=== PATIENT | female | born 1995 | race Caucasian/White ===

== ENCOUNTER 2017-05-18 15:57 | Emergency (ER) | payer OTHER, SELFPAY ==
[2017-05-18 16:44] VITALS: BP 147/93; PULSE 94; RESP 20; TEMP 36.9; O2SAT 99; BMI 34.0
--- NOTE | 2017-05-18 16:49 | HMH.EDUTC ---
[facility] [place] Disposition Clinical Impression: Viral gastroenteritis Disposition: Home, Self-Care Condition on Discharge: Good Instructions: DI for Viral Gastroenteritis -- Adult Additional Instructions: ? Drink extra fluids with and between meals. If you have difficulty drinking, try very small amounts of water or suck on ice chips. ? Avoid fruit juices, as these do not replace minerals and can actually increase diarrhea. ? Children and adults can use sports drinks to replenish electrolytes. Younger children and infants should use products formulated for children, like oral rehydration solutions. ? Eat food in small amounts and let your stomach recover. ? Get lots of rest. You may feel tired or weak. ? Check with your doctor before taking medications or giving them to children. Never give aspirin to children or teenagers with a viral illness. This can cause Jaylen syndrome, a potentially life-threatening condition. Prescriptions: Ondansetron [Zofran 4mg ODT] 4 mg PO Q8H PRN #20 tab.rapdis PRN Reason: Nausea Referrals: Konstantin Pryor MD [Primary Care Provider] - Time of Disposition: 17:15 Medical Decision Making - Medical Records Medical records reviewed: Yes: I reviewed the patient's medical records. Vital Signs: 05/18/17 16:44 Temperature 98.4 F Temperature Source Temporal Artery Scan Pulse Rate [Right] 94 H Respiratory Rate 20 Blood Pressure [Right Arm] 147/93 Blood Pressure Mean [Right Arm] 111 Blood Pressure Source [Right Arm] Automatic Cuff Blood Pressure Position [Right Arm] Sitting 02 Sat by Pulse Oximetry 99 Oxygen Delivery Method Room Air - Cesar Inquiry Pt receiving controlled substance: No Cesar was queried for this patient: No [facility] [place] HPI - General Stated complaint: vomiting Mode of Arrival: Ambulatory Source of Information: Patient Limitations: No Limitations Description of Symptoms (Recalled from Triage Doc. by RN): NAUSEA, VOMITING BEGAN WEDNESDAY HEENT Symptoms (Recalled from RN notes): No Resp Symptoms (Recalled from RN notes): No Skin Symptoms (Recalled from RN notes): No MS Symptoms (Recalled from RN notes): No Functional Status (Recalled from RN notes): N - History of Present Illness Provider Complaint: Patient state that she has been having nausea vomiting and diarrhea on and off since Wednesday State that she thinks she may have the stomach virus and may have been exposed to the flu - Related Data Previous Rx's Medication Instructions Recorded Ondansetron [Zofran 4mg ODT] 4 mg PO Q8H PRN #20 tab.rapdis 05/18/17 Allergies Allergy/AdvReac Type Severity Reaction Status Date / Time No Known Allergies Allergy Verified 05/18/17 16:47 - Worker's Comp Is this a Worker's Comp case?: No [facility] History I have reviewed the patient's past medical history: Yes - *Social History Smoking Status: Current every day smoker Tobacco Type: cigarettes Alcohol Intake: never - Psychiatric History Expresses thoughts of harming self/others: None Suicide Plan Description: No Plan ROS Obtained: Yes All systems reviewed & no additional complaints - Gastrointestinal Gastrointestingal: Reports: diarrhea, nausea, vomiting Physical Exam - General General appearance: alert, in no apparent distress - Respiratory Respiratory exam: Present: normal lung sounds bilaterally. Absent: respiratory distress - Cardiovascular Cardiovascular exam: Present: regular rate, normal rhythm. Absent: JVD - Abdominal Exam Abdominal exam: Present: soft, normal bowel sounds. Absent: distention, tenderness, guarding - Neurological Exam Neurological exam: Present: alert, oriented X3 - Other Other exam information: State that she has been having nausea vomiting and diarrhea on and off since Wednesday State that she had to leave work earlier and thinks she may have been exposed to the flu
--- NOTE | 2017-05-18 16:54 | ED_ITS ---
[facility] [place] Clinical Impression: Viral gastroenteritis Disposition: Home, Self-Care Condition on Discharge: Good Instructions: DI for Viral Gastroenteritis -- Adult Additional Instructions: ? Drink extra fluids with and between meals. If you have difficulty drinking, try very small amounts of water or suck on ice chips. ? Avoid fruit juices, as these do not replace minerals and can actually increase diarrhea. ? Children and adults can use sports drinks to replenish electrolytes. Younger children and infants should use products formulated for children, like oral rehydration solutions. ? Eat food in small amounts and let your stomach recover. ? Get lots of rest. You may feel tired or weak. ? Check with your doctor before taking medications or giving them to children. Never give aspirin to children or teenagers with a viral illness. This can cause Dilma?s syndrome, a potentially life-threatening condition. Prescriptions: Ondansetron [Zofran 4mg ODT] 4 mg PO Q8H PRN #20 tab.rapdis PRN Reason: Nausea Referrals: Konstantin Pryor MD [Primary Care Provider] - Time of Disposition: 17:15 Medical Decision Making - Medical Records Medical records reviewed: Yes: I reviewed the patient's medical records. Vital Signs: 05/18/17 16:44 Temperature 98.4 F Temperature Source Temporal Artery Scan Pulse Rate [Right] 94 H Respiratory Rate 20 Blood Pressure [Right Arm] 147/93 Blood Pressure Mean [Right Arm] 111 Blood Pressure Source [Right Arm] Automatic Cuff Blood Pressure Position [Right Arm] Sitting 02 Sat by Pulse Oximetry 99 Oxygen Delivery Method Room Air - Cesar Inquiry Pt receiving controlled substance: No Cesar was queried for this patient: No [facility] [place] HPI - General Stated complaint: vomiting Mode of Arrival: Ambulatory Source of Information: Patient Limitations: No Limitations Description of Symptoms (Recalled from Triage Doc. by RN): NAUSEA, VOMITING BEGAN WEDNESDAY HEENT Symptoms (Recalled from RN notes): No Resp Symptoms (Recalled from RN notes): No Skin Symptoms (Recalled from RN notes): No MS Symptoms (Recalled from RN notes): No Functional Status (Recalled from RN notes): N - History of Present Illness Provider Complaint: Patient state that she has been having nausea vomiting and diarrhea on and off since Wednesday State that she thinks she may have the stomach virus and may have been exposed to the flu - Related Data Previous Rx's Medication Instructions Recorded Ondansetron [Zofran 4mg ODT] 4 mg PO Q8H PRN #20 tab.rapdis 05/18/17 Allergies Allergy/AdvReac Type Severity Reaction Status Date / Time No Known Allergies Allergy Verified 05/18/17 16:47 - Worker's Comp Is this a Worker's Comp case?: No [facility] History I have reviewed the patient's past medical history: Yes - *Social History Smoking Status: Current every day smoker Tobacco Type: cigarettes Alcohol Intake: never - Psychiatric History Expresses thoughts of harming self/others: None Suicide Plan Description: No Plan ROS Obtained: Yes All systems reviewed & no additional complaints - Gastrointestinal Gastrointestingal: Reports: diarrhea, nausea, vomiting Physical Exam - General General appearance: alert, in no apparent distress - Respiratory Respiratory exam: Present: normal lung sounds bilaterally. Absent: respira
[2017-05-18 17:22] LABS: UTC Influenza A Antigen Negative (Negative); UTC Influenza B Antigen Negative (Negative)
[2017-05-18 17:29] VITALS: BP 0/0; PULSE 84; RESP 18; TEMP 37.2
== END 2017-05-18 17:30 | disposition home or self-care (01) ==
PROVIDERS: Emergency Provider Nurse Practitioner; PCP Emergency Medicine
DX: A08.4 Viral intestinal infection, unspecified
CPT/HCPCS: 87804; 99201

== ENCOUNTER → 2017-08-26 12:45 | Outpatient (CLI) | payer OTHER, SELFPAY ==
--- NOTE | 2017-08-26 | US_ITS ---
MM Dig mamm BI DX w/CAD, US breast LT complete INDICATION: Palpable abnormality left breast retroareolar region, family history of breast cancer with mother reportedly had breast cancer at age 24 ORDERING PHYSICIAN: [facility] PATIENT AGE: 21 years COMPARISON: None TECHNIQUE: Standard images performed along spot compression view of the left breast FINDINGS: There is average fibroglandular tissue. No malignant appearing microcalcifications are evident. 7 mm nodular opacity is noted in the retroareolar region on the left corresponding to the palpable abnormality. This was somewhat obscured by overlying breast tissue on the spot compression views. Therefore, ultrasound was performed. Left breast ultrasound:. There is a 7 x 5 mm cyst corresponding to the mammographic abnormality. No other significant anomalies are evident. IMPRESSION: Palpable abnormality left breast corresponds to a 7 x 5 mm cyst BI-RADS Category: 2 Benign Finding(s) Recommended follow-up as clinically warranted. (A letter has been sent to the patient regarding results of the study.)
== END ==
PROVIDERS: PCP Emergency Medicine; Visit Provider Nurse Practitioner Obstetrics & Gynecology
DX: N60.02 Solitary cyst of left breast (principal); Z80.3 Family history of malignant neoplasm of breast
CPT/HCPCS: 76641; 77066

== ENCOUNTER → 2017-10-21 15:29 | Outpatient (CLI) | payer OTHER, SELFPAY ==
--- NOTE | 2017-10-21 15:32 | XR_ITS ---
EXAM: XR lumbar spine min 4V HISTORY: ITS.REASON: Low back pain ORDERING PHYSICIAN: GUILLERMINA Mendiola PATIENT AGE: 22 years COMPARISON: None FINDINGS: Normal alignment. No fracture or dislocation. No lytic or blastic change. No significant degenerative change. The disc spaces are preserved. There is mild sclerosis of the inferior aspect of the left SI joint. There is partial lumberization of S1 on the right. Mild sclerosis of the SI joint also noted on the right. IMPRESSION: 1. No acute finding. 2. Mild sclerosis of the SI joints suggesting underlying osteoarthritic change
--- NOTE | 2017-10-21 15:32 | XR_ITS ---
XR scoliosis survey CLINICAL INDICATION: ITS.REASON: Back pain ORDERING PHYSICIAN: GUILLERMNIA Mendiola PATIENT AGE: 22 years Comparison: None FINDINGS: There is minimal levoscoliosis of the lower thoracic spine of 3 degrees and minimal dextroscoliosis of the lumbar spine of 4 degrees. No congenital anomalies apparent IMPRESSION: Minimal thoracolumbar scoliosis
== END ==
PROVIDERS: PCP Physician Assistant; Visit Provider Physician Assistant
DX: M54.9 Dorsalgia, unspecified (principal); M54.5 Low back pain
CPT/HCPCS: 72081; 72110

== ENCOUNTER 2017-12-09 14:30 | Outpatient (RCR) | payer OTHER, SELFPAY ==
--- NOTE | 2017-11-03 14:50 | HMH.PTOPEV ---
PT Outpatient Evaluation Rehab PT Outpatient Evaluation Start: 11/03/17 14:40 Freq: Status: Active Protocol: Document 11/03/17 14:40 AMANDO (Rec: 11/03/17 14:49 AMANDO [id number]) Electronically Signed By Ozzie Sinha, PT 11/03/17 14:40 Outpatient Therapy Subjective History Subjective History Pt reports h/o chronic mid- and LBP since 2012 after falling down 2 flights of stairs. Pt reports another fall on ice in 2017 exacerbated s/s. Pt presents today with bilateral paraspinal pain from thoracic spine into lumbar spine. Pt reports no radicular s/s. Chief Complaint Pain Spasms Symptom Type Ache Throb Sharp Dull Symptoms Relieved By Nothing Symptoms Aggravated By Standing Physical Activity Walking Lifting Prior Functional Limitations Lifting Housework Standing Walking Current Functional Limitations Reaching Lifting Housework Standing Walking Bending/Stooping Symptom Description Constant but Variable Level of pain today (0-10) 5 Pain scale - at its best (0-10) 4 Pain scale - at its worst (0-10) 10 Lumbopelvic Eval Posture Thoracic Spine Posture Standing Position Increased Kyphosis Lumbar Spine Posture Standing Position Neutral Assistive device Assistive Devices None / NA Gait Observation General Gait Pattern Observation Antalgic Gait Palapation tenderness bilateral thoracic spinal tenderness Yes: 3/4 lumbar spinal tenderness Yes: 3/4 paraspinal tenderness Yes: 3/4 Lumbar/Sacral Palpation Findings Tenderness Muscle Guarding Lumbar/Sacral Palpation Overall Comment 3/4 Accessory Movement T-spine Vertebrae Accessory Movements [employer] [place] that Elicit Symptoms T10 bilateral T11 bilateral T12 bilateral L-spine Vertebrae Accessory Movements [employer] [place] that Elicit Symptoms L2 bilateral L3 christine
== END 2017-12-09 14:31 | disposition home or self-care (01) ==
LOC: PT 14:30
PROVIDERS: PCP Physician Assistant; Visit Provider Physician Assistant
DX: M54.9 Dorsalgia, unspecified (principal)
CPT/HCPCS: 97010; 97014; 97035; 97110; 97140; 97163; 97164; G0283

== ENCOUNTER → 2017-12-17 15:18 | Outpatient (CLI) | payer OTHER, SELFPAY ==
--- NOTE | 2017-12-17 15:19 | MR_ITS ---
MR lumbar spine wo con, MR 3-d myelogram/MRCP HISTORY: Severe low back pain. ITS.REASON: Lumbar pain ORDERING PHYSICIAN: GUILLERMINA Mendiola PATIENT AGE: 22 years Comparison: X-RAY 10-21-17 TECHNIQUE: Standard multiplanar multiecho sequences are performed without contrast. 3-D MIP and myelographic images are also rendered and reviewed FINDINGS: Review of previous radiographs show that there are only 11 sets of ribs. There is partial lumbarization with that being a transitional segment. Of S1. The spinal cord and at the L1 level. There is normal alignment. No fracture or dislocation. L1-L3 has an unremarkable appearance. L3-L4: Minimal bulging disc and mild facet hypertrophy L4-L5: Minimal bulging disc with mild facet and ligamentum flavum hypertrophy with mild bilateral foraminal narrowing. L5-S1: Minimal bulging disc slightly eccentric to the right with mild facet and ligamentum flavum hypertrophy with mild bilateral foraminal narrowing S1-S2: Unremarkable. No canal stenosis or disc herniation evident. IMPRESSION: 1. Mild facet and ligamentum hypertrophy with minimal bulging disc at L4-5 and L5-S1 with mild bilateral foraminal narrowing. 2. No disc herniation or other significant anomalies. 3. Transitional segment at L5-S1 which is labeled as a partially lumbar S1 segment. Please note this if there is any surgical or percutaneous intervention planned
== END ==
PROVIDERS: PCP Physician Assistant; Visit Provider Physician Assistant
DX: M54.5 Low back pain (principal)
CPT/HCPCS: 72148; 76376

== ENCOUNTER → 2018-01-04 10:24 | Outpatient (POV) | payer OTHER, SELFPAY ==
[2018-01-04 10:42] VITALS: BP 149/90; PULSE 71; RESP 18; O2SAT 98
--- NOTE | 2018-01-04 11:57 | HMH.PMCON ---
Assessment and Plan (1) Degenerative disc disease Current visit: Yes Status: Chronic Qualifiers: Spinal region: lumbar Qualified Code(s): M51.36 - Other intervertebral disc degeneration, lumbar region Category: Medical (2) Radiculopathy Current visit: Yes Status: Chronic Qualifiers: Spinal region: lumbar Qualified Code(s): M54.16 - Radiculopathy, lumbar region Category: Medical Code(s): M54.10 - Radiculopathy, site unspecified (3) Back Pain Current visit: No Status: Chronic Qualifiers: Back pain location: low back pain Chronicity: chronic Back pain laterality: midline Sciatica presence: with sciatica Sciatica laterality: bilateral sciatica Qualified Code(s): M54.41 - Lumbago with sciatica, right side; M54.42 - Lumbago with sciatica, left side; G89.29 - Other chronic pain Category: Medical Code(s): M54.9 - Dorsalgia, unspecified - Assessment and plan all Dx Assessment and Plan for all problems:: We will schedule an L4-L5 lumbar epidural steroid injection for the patient. Patient is not on any anticoagulation therapy. Patient's tried and failed physical therapy along with anti-inflammatories. I will follow-up with the patient after her injection and see if this is beneficial for her. This note was dictated using voice recognition software and may contain errors or omissions HPI - Data of Consult Consult date: 01/04/18 Requesting Physician: Any Cortes APRN Primary Care Provider: GUILLERMINA Patton - Consult Narrative Reason for consult: Back pain History of present illness: Ms. Yip is a 22 year old female who presents today for consultation in regards to her low back pain. Patient rates her pain today a 5 out of 10. She states is in her back and sometimes goes into her legs. Patient states bending and lifting makes it worse while resting decreases pain. Patient has completed physical therapy recently with no relief. Patient states she utilizes a TENS unit however she only had relief while it was on. Patient has fallen down the stairs along with falling on ice several months ago. Patient has recently had a child. Patient does have an MRI showing bulging disks along with mild facet and ligamentum flavum hypertrophy. Patient has tried multiple anti-inflammatories for several months with no success. CC: Any Cortes APRN [facility] History I have reviewed the patient's past medical history: Yes Medical History: Denies:: Cancer, Diabetes Mellitus Type 1, Diabetes Mellitus Type 2, MRSA Other Surgeries: Yes: No Previous Surgery Amputation: No Fractures: No - *Social History Smoking Status: Current every day smoker Tobacco Type: cigarettes # Packs/Day (cigarettes): 1 #Yrs smoked (if former smoker): 5 Alcohol Intake: never Substance Use Type: denies use Occupational Status: other Housing: house - Psychiatric History Expresses thoughts of harming self/others: None Suicide Plan Description: No Plan *Family Hx:: No significant family history Review of Systems - Review of Systems ROS General: no recent weight change, no fever, no sleep disturbances Respiratory: no cough, no shortness of air, no recurring pulmonary infections Cardiovascular/Peripheral Vascular: No chest pain, No palpitations, no edema, no shortness of breath. Gastrointestinal: no incontinence, normal bowel movements reported Genitourinary: no incontinence Musculoskeletal: Back pain, leg pain at times Psychiatric: normal mood/ affect Neurological: [denies weakness in extremities], [denies balance issues] Meds Allergies Allergy/AdvReac Type Severity Reaction Status Date / Time No Known Allergies Allergy Verified 12/22/17 13:54 Objective Vital signs: Pulse Resp BP Pulse Ox 71 18 149/90 98 01/04/18 10:42 01/04/18 10:42 01/04/18 10:42 01/04/18 10:42 Narrative: Physical Exam General: Alert and oriented x3, no ac
--- NOTE | 2018-01-04 12:00 | P.CONS_ITS ---
Assessment and Plan (1) Degenerative disc disease Current visit: Yes Status: Chronic Qualifiers: Spinal region: lumbar Qualified Code(s): M51.36 - Other intervertebral disc degeneration, lumbar region Category: Medical (2) Radiculopathy Current visit: Yes Status: Chronic Qualifiers: Spinal region: lumbar Qualified Code(s): M54.16 - Radiculopathy, lumbar region Category: Medical Code(s): M54.10 - Radiculopathy, site unspecified (3) Back Pain Current visit: No Status: Chronic Qualifiers: Back pain location: low back pain Chronicity: chronic Back pain laterality: midline Sciatica presence: with sciatica Sciatica laterality: bilateral sciatica Qualified Code(s): M54.41 - Lumbago with sciatica, right side; M54.42 - Lumbago with sciatica, left side; G89.29 - Other chronic pain Category: Medical Code(s): M54.9 - Dorsalgia, unspecified - Assessment and plan all Dx Assessment and Plan for all problems:: We will schedule an L4-L5 lumbar epidural steroid injection for the patient. Patient is not on any anticoagulation therapy. Patient's tried and failed physical therapy along with anti-inflammatories. I will follow-up with the patient after her injection and see if this is beneficial for her. This note was dictated using voice recognition software and may contain errors or omissions HPI - Data of Consult Consult date: 01/04/18 Requesting Physician: Any Cortes APRN Primary Care Provider: GUILLERMINA Patton - Consult Narrative Reason for consult: Back pain History of present illness: Ms. Yip is a 22 year old female who presents today for consultation in regards to her low back pain. Patient rates her pain today a 5 out of 10. She states is in her back and sometimes goes into her legs. Patient states bending and lifting makes it worse while resting decreases pain. Patient has completed physical therapy recently with no relief. Patient states she utilizes a TENS unit however she only had relief while it was on. Patient has fallen down the stairs along with falling on ice several months ago. Patient has recently had a child. Patient does have an MRI showing bulging disks along with mild facet and ligamentum flavum hypertrophy. Patient has tried multiple anti-inflammatories for several months with no success. CC: Any Cortes APRN [facility] History I have reviewed the patient's past medical history: Yes Medical History: Denies:: Cancer, Diabetes Mellitus Type 1, Diabetes Mellitus Type 2, MRSA Other Surgeries: Yes: No Previous Surgery Amputation: No Fractures: No - *Social History Smoking Status: Current every day smoker Tobacco Type: cigarettes # Packs/Day (cigarettes): 1 #Yrs smoked (if former smoker): 5 Alcohol Intake: never Substance Use Type: denies use Occupational Status: other Housing: house - Psychiatric History Expresses thoughts of harming self/others: None Suicide Plan Description: No Plan *Family Hx:: No significant family history Review of Systems - Review of Systems ROS General: no recent weight change, no fever, no sleep disturbances Respiratory: no cough, no shortness of air, no recurring pulmonary infections Cardiovascular/Peripheral Vascular: No chest pain, No palpitations, no edema, no shortness of breath. Gastrointestinal: no incontinence, normal bowel movements reported Genitourinary: no incontinence Musculoskeletal: Back pain, leg pain at times Psychiatric: normal mood/ affect Neurological: [
== END ==
PROVIDERS: PCP Physician Assistant; Visit Provider Clinical Nurse Specialist Family Health
DX: M51.16 Intervertebral disc disorders with radiculopathy, lumbar region (principal); M54.41 Lumbago with sciatica, right side; M54.42 Lumbago with sciatica, left side; G89.29 Other chronic pain
CPT/HCPCS: 99202

== ENCOUNTER → 2018-02-15 11:03 | Outpatient (POV) | payer OTHER, SELFPAY ==
[2018-02-15 11:27] VITALS: BP 148/98; PULSE 105; RESP 18; O2SAT 98; BMI 31.8
--- NOTE | 2018-02-15 11:39 | P.CONS_ITS ---
[facility] Pain Management SOAP Note Subjective:: Patient is a pleasant 22-year-old white female who presents today for follow-up after lumbar epidural steroid injection. Patient states the injection made her pain worse. Patient did not get any relief even after she had been numbed. Patient states her pain 6 out of 10. Patient is trying to work full-time. Patient has tried and failed physical therapy. Patient is not currently on any medications. ROS General: no recent weight change, no fever, no sleep disturbances Respiratory: no cough, no shortness of air, no recurring pulmonary infections Cardiovascular/Peripheral Vascular: No chest pain, No palpitations, no edema, no shortness of breath. Gastrointestinal: no incontinence, normal bowel movements reported Genitourinary: no incontinence Musculoskeletal: Back pain, leg pain Psychiatric: normal mood/ affect Neurological: [denies weakness in extremities], [denies balance issues] Objective:: Physical Exam General: Alert and oriented x3, no acute distress, pleasant and cooperative, [on room air] Lungs: Resps E/U, Symmetrical chest expansion, Eyes: PERRL Musculoskeletal: Flexion and extension of lumbar spine somewhat guarded secondary to pain, deep tendon reflexes normal, strength in upper and lower extremities [5/5], slightly antalgic gait noted Neurological: speech clear, orchardist equal, no gross sensory deficits Assessment:: Degenerative disc disease lumbar spine with lumbar radiculopathy Plan:: We will start the patient on gabapentin 100 mg at bedtime and follow-up with her in 1 month we will see if this is beneficial for her. Patient's been instructed to call the office if she has any issues prior to her next appointment. This note was dictated using voice recognition software and may contain errors or omissions
== END ==
PROVIDERS: PCP Physician Assistant; Visit Provider Clinical Nurse Specialist Family Health
DX: M51.16 Intervertebral disc disorders with radiculopathy, lumbar region (principal)
CPT/HCPCS: 99213

== ENCOUNTER → 2018-03-14 08:59 | Outpatient (POV) | payer OTHER, SELFPAY ==
[2018-03-14 09:39] VITALS: BP 158/79; PULSE 104; RESP 18; O2SAT 99; BMI 32.5
--- NOTE | 2018-03-14 10:34 | P.CONS_ITS ---
[facility] Pain Management SOAP Note Subjective:: Patient is a pleasant 22-year-old white female who presents today for follow-up. Patient is being treated for back pain. Patient denied any relief from her lumbar epidural steroid injection. At her last visit we started her on gabapentin. She rates her pain today as 6 out of 10. Patient states she has not had any side effects or medication however she does not feel like it has helped. ROS General: no recent weight change, no fever, no sleep disturbances Respiratory: no cough, no shortness of air, no recurring pulmonary infections Cardiovascular/Peripheral Vascular: No chest pain, No palpitations, no edema, no shortness of breath. Gastrointestinal: no incontinence, normal bowel movements reported Genitourinary: no incontinence Musculoskeletal: Back pain, leg pain Psychiatric: normal mood/ affect Neurological: [denies weakness in extremities], [denies balance issues] Objective:: Physical Exam General: Alert and oriented x3, no acute distress, pleasant and cooperative, [on room air] Lungs: Resps E/U, Symmetrical chest expansion, Eyes: PERRL Musculoskeletal: Flexion and extension of lumbar spine somewhat guarded secondary to pain, deep tendon reflexes normal, strength in upper and lower extremities [5/5], normal gait noted Neurological: speech clear, continuing education dean equal, no gross sensory deficits Assessment:: Degenerative disc disease lumbar spine with lumbar radiculopathy Plan:: We will increase her gabapentin to 300 mg 1 p.o. 3 times daily I will follow-up with her in 1 month. Patient's been instructed to call the office if she has any issues prior to her next appointment. Dr. Mullins is reviewed this chart and agrees with this plan of care. This note was dictated using voice recognition software and may contain errors or omissions
== END ==
PROVIDERS: PCP Nurse Practitioner Family; Visit Provider Clinical Nurse Specialist Family Health
DX: M51.16 Intervertebral disc disorders with radiculopathy, lumbar region (principal)
CPT/HCPCS: 99213

== ENCOUNTER → 2018-04-11 13:29 | Outpatient (POV) | payer BC, OTHER, SELFPAY ==
[2018-04-11 13:39] VITALS: BP 154/93; PULSE 104; RESP 18; O2SAT 99; BMI 31.9
--- NOTE | 2018-04-11 14:01 | HMH.PAINSOAP ---
[facility] Pain Management SOAP Note Subjective:: Patient is a pleasant 22-year-old white female who presents today for follow-up. Patient states that the gabapentin has not been helping her low back pain. She states that when she works it is worse she rates her pain a 6 out of 10 today. ROS General: no recent weight change, no fever, no sleep disturbances Respiratory: no cough, no shortness of air, no recurring pulmonary infections Cardiovascular/Peripheral Vascular: No chest pain, No palpitations, no edema, no shortness of breath. Gastrointestinal: no incontinence, normal bowel movements reported Genitourinary: no incontinence Musculoskeletal: back pain Psychiatric: normal mood/ affect Neurological: [denies weakness in extremities], [denies balance issues] Objective:: Physical Exam General: Alert and oriented x3, no acute distress, pleasant and cooperative, [on room air] Lungs: Resps E/U, Symmetrical chest expansion, Eyes: PERRL Musculoskeletal: Flexion and extension of lumbar spine somewhat guarded secondary to pain, deep tendon reflexes normal, strength in upper and lower extremities [5/5], normal gait noted Neurological: speech clear, hospitalist physician equal, no gross sensory deficits Assessment:: Degenerative disc disease lumbar spine with lumbar radiculopathy Plan:: We will get the patient a back brace to help during work. We will also start her on Elavil 25 mg 1 p.o. nightly. We will follow-up with her in 2 weeks. Patient's been instructed to call the office if she has any issues prior to her next appointment. This note was dictated using voice recognition software and may contain errors or omissions
--- NOTE | 2018-04-11 14:04 | P.CONS_ITS ---
[facility] Pain Management SOAP Note Subjective:: Patient is a pleasant 22-year-old white female who presents today for follow-up. Patient states that the gabapentin has not been helping her low back pain. She states that when she works it is worse she rates her pain a 6 out of 10 today. ROS General: no recent weight change, no fever, no sleep disturbances Respiratory: no cough, no shortness of air, no recurring pulmonary infections Cardiovascular/Peripheral Vascular: No chest pain, No palpitations, no edema, no shortness of breath. Gastrointestinal: no incontinence, normal bowel movements reported Genitourinary: no incontinence Musculoskeletal: back pain Psychiatric: normal mood/ affect Neurological: [denies weakness in extremities], [denies balance issues] Objective:: Physical Exam General: Alert and oriented x3, no acute distress, pleasant and cooperative, [on room air] Lungs: Resps E/U, Symmetrical chest expansion, Eyes: PERRL Musculoskeletal: Flexion and extension of lumbar spine somewhat guarded secondary to pain, deep tendon reflexes normal, strength in upper and lower extremities [5/5], normal gait noted Neurological: speech clear, plant protection guard equal, no gross sensory deficits Assessment:: Degenerative disc disease lumbar spine with lumbar radiculopathy Plan:: We will get the patient a back brace to help during work. We will also start her on Elavil 25 mg 1 p.o. nightly. We will follow-up with her in 2 weeks. Patient's been instructed to call the office if she has any issues prior to her next appointment. This note was dictated using voice recognition software and may contain errors or omissions
== END ==
PROVIDERS: PCP Physician Assistant; Visit Provider Clinical Nurse Specialist Family Health
DX: M51.16 Intervertebral disc disorders with radiculopathy, lumbar region (principal)
CPT/HCPCS: 99213

== ENCOUNTER → 2018-04-26 11:40 | Outpatient (POV) | payer BC, SELFPAY ==
[2018-04-26 12:14] VITALS: BP 128/84; PULSE 96; RESP 18; O2SAT 99; BMI 31.0
--- NOTE | 2018-04-26 12:27 | P.CONS_ITS ---
[facility] Pain Management SOAP Note Subjective:: Patient is a pleasant 22-year-old white female who presents today for follow-up. Patient is having continual back pain that is nonradiating. She is tried and failed gabapentin, tramadol, amitriptyline. Patient rates her pain a 6 out of 10. Patient on anti-inflammatories with no success. Patient has had injections with no relief. Patient is unable to wear her back brace at work. ROS General: no recent weight change, no fever, no sleep disturbances Respiratory: no cough, no shortness of air, no recurring pulmonary infections Cardiovascular/Peripheral Vascular: No chest pain, No palpitations, no edema, no shortness of breath. Gastrointestinal: no incontinence, normal bowel movements reported Genitourinary: no incontinence Musculoskeletal: Back pain Psychiatric: normal mood/ affect Neurological: [denies weakness in extremities], [denies balance issues] Objective:: Physical Exam General: Alert and oriented x3, no acute distress, pleasant and cooperative, [on room air] Lungs: Resps E/U, Symmetrical chest expansion, Eyes: PERRL Musculoskeletal: Flexion and extension of lumbar spine somewhat guarded secondary to pain, deep tendon reflexes normal, strength in upper and lower extremities [5/5], slightly antalgic gait noted Neurological: speech clear, property preservation specialist equal, no gross sensory deficits Assessment:: Degenerative disc disease lumbar spine with lumbar radiculopathy Plan:: We will call in Lyrica 75 mg twice daily to see if this is beneficial. I will follow-up with the patient in 1 week reassess her symptoms. I also gave her information in regards to her neurostimulator. Dr. Mullins has reviewed this note and agrees with this plan of care. This note was dictated using voice recognition software and may contain errors or omissions
== END ==
PROVIDERS: PCP Physician Assistant; Visit Provider Clinical Nurse Specialist Family Health
DX: M51.16 Intervertebral disc disorders with radiculopathy, lumbar region (principal)
CPT/HCPCS: 99213

== ENCOUNTER → 2018-05-16 10:47 | Outpatient (POV) | payer BC, SELFPAY ==
[2018-05-16 11:17] VITALS: BP 147/92; PULSE 94; RESP 18; O2SAT 99; BMI 28.8
--- NOTE | 2018-05-16 12:27 | P.CONS_ITS ---
[facility] Pain Management SOAP Note Subjective:: Patient is a pleasant 22-year-old white female who we are following up with today. Patient is having continual back pain that is nonradiating. She is tried and failed gabapentin, tramadol, amitriptyline, Lyrica. She rates her pain a 6 out of 10 she states that this is her baseline. She is been on anti- inflammatories with no success for over 3 months. Patient has had a lumbar epidural injection with no relief. She is unable to wear a back brace to work. Patient does have pain with twisting movements. ROS General: no recent weight change, no fever, no sleep disturbances Respiratory: no cough, no shortness of air, no recurring pulmonary infections Cardiovascular/Peripheral Vascular: No chest pain, No palpitations, no edema, no shortness of breath. Gastrointestinal: no incontinence, normal bowel movements reported Genitourinary: no incontinence Musculoskeletal: Back pain Psychiatric: normal mood/ affect Neurological: [denies weakness in extremities], [denies balance issues] Objective:: Physical Exam General: Alert and oriented x3, no acute distress, pleasant and cooperative, [on room air] Lungs: Resps E/U, Symmetrical chest expansion, Eyes: PERRL Musculoskeletal: Flexion and extension of lumbar spine somewhat guarded secondary to pain, deep tendon reflexes normal, strength in upper and lower extremities [5/5], slightly antalgic gait noted, positive Kemps test lumbar spine Neurological: speech clear, health social work professor equal, no gross sensory deficits Assessment:: Degenerative disc disease lumbar spine, lumbar facet arthropathy Plan:: Patient and I had a long discussion were going to move forward with. Patient is unsure if she wants to move forward with any other injections. She knows she does not want to discuss potential neuro stimulation. At this point I do believe she may benefit from a medial branch block. She is going to consider this and call us back. She is not on any anticoagulation therapy. She will be scheduled for an L3-L4 L4-L5 L5-S1 bilateral lumbar medial branch block for diagnostic purposes. If she decides to move forward with this. Dr. Mullins has reviewed this note and agrees with this plan of care. This note was dictated using voice recognition software and may contain errors or omissions
== END ==
PROVIDERS: PCP Physician Assistant; Visit Provider Clinical Nurse Specialist Family Health
DX: M51.36 Other intervertebral disc degeneration, lumbar region (principal); M54.06 Panniculitis affecting regions of neck and back, lumbar region
CPT/HCPCS: 99213

== ENCOUNTER → 2018-09-19 12:18 | Outpatient (CLI) | payer OTHER, SELFPAY ==
--- NOTE | 2018-09-19 12:24 | XR_ITS ---
EXAM: XR thoracic spine 2V HISTORY: ITS.REASON: SPONDYLOSIS Comparison: None FINDINGS: There is minimal upper thoracic curvature convex right. There is normal alignment. No fracture or dislocation or significant degenerative changes evident. No lytic or blastic change. There is an azygos fissure is normal variant IMPRESSION: Minimal upper thoracic curvature convex right otherwise negative
== END ==
PROVIDERS: PCP Emergency Medicine; Visit Provider Physical Medicine & Rehabilitation
DX: M47.814 Spondylosis without myelopathy or radiculopathy, thoracic region (principal)
CPT/HCPCS: 72070

== ENCOUNTER 2019-08-31 17:17 | Emergency (ER) | payer OTHER, SELFPAY ==
[2019-08-31 17:30] VITALS: BP 137/85; PULSE 96; RESP 20; TEMP 36.8; O2SAT 99; BMI 29.2
--- NOTE | 2019-08-31 17:41 | XR_ITS ---
PROCEDURE: XR CHEST 2V CLINICAL HISTORY: cough There is an azygos fissure is a normal variant. COMPARISON: CXR CHEST(2 VIEWS-NOT PORTABLE) from 11/03/2014 XR CHEST 2V from 03/24/2019 XR CHEST PORTABLE from 07/19/2019 FINDINGS: The cardiomediastinal silhouette and pulmonary vascularity are within normal limits. The lungs are clear without infiltrates, suspicious nodules, or pleural effusions. No acute bony abnormalities. IMPRESSION: No acute findings. Dictated by: Segundo Caraballo MD 08/31/2019 17:59 Electronically signed by Segundo Caraballo MD in [place] 08/31/2019 17:59
[2019-08-31 17:56] LABS: UTC Influenza A Antigen Negative (Negative); UTC Strep Screen (Rapid) Negative (Negative)
[2019-08-31 17:57] LABS: UTC Influenza B Antigen Negative (Negative)
--- NOTE | 2019-08-31 18:06 | HMH.EDUTC ---
[place] Disposition Clinical Impression: Bronchitis Sinusitis Qualifiers: Sinusitis location: unspecified location Chronicity: unspecified Qualified Code(s): J32.9 - Chronic sinusitis, unspecified Disposition: Home, Self-Care Condition on Discharge: Good Instructions: Sore Throat, Sinusitis, Sinus Headache, Cough, DI for Sinusitis, DI for Cough -- Adult, DI for Acute Bronchitis Additional Instructions: ? Start antibiotic today. Be sure to complete entire prescription even if feeling better ? Monitor temp. Tylenol every 4 hours as needed and / or ibuprofen every 6 hours as needed ( As long as your primary care physician has told you that it ok to take both. For fever/aches/pains ER if no less than 101 despite Tylenol or Motrin ? Humidifier/vaporizer or hot steamy shower ? Inhaler every 4-6 hours as needed like we discussed. If unsure how to use it, ask pharmacist to demonstrate how. Should help open airways and improve cough, wheezing, and shortness of breath ? *Tessalon Perles will not cause drowsiness but use at bedtime to help stop cough so that you may get some rest. *Start steroid today. Helps with inflammation therefore, cough and wheezing. Follow directions on the package. Reviewed side effects. Patient reports taking them before. Follow up IMMEDIATELY for new or worsening of symptoms OR no noticeable improvement over the next 48-72 hours. 911 immediately for any life threatening symptoms such as chest pain or difficulty breathing Prescriptions: Fluticasone Propionate [Flonase 50mcg nasal spray 16gm] 1 spr NS DAILY #1 bottle Transmission Status: Pending to [facility] # methylPREDNISolone [Medrol 4mg tab] 4 mg PO DIRECTED #21 tab Transmission Status: Pending to [facility] # Azithromycin [Z-Gilmar 250mg Tab] 250 mg PO DIRECTED #6 tab Transmission Status: Pending to [facility] # Referrals: Malu Woo PA [Primary Care Provider] - As needed Time of Disposition: 18:11 Medical Decision Making - Cesar Inquiry Pt receiving controlled substance: No Cesar was queried for this patient: No Vital Signs: 08/31/19 17:30 Temperature 98.3 F Temperature Source Oral Pulse Rate [Left Radial] 96 H Respiratory Rate 20 Blood Pressure [Left Arm] 137/85 Blood Pressure Mean [Left Arm] 102 Blood Pressure Source [Left Arm] Automatic Cuff Blood Pressure Position [Left Arm] Sitting 02 Sat by Pulse Oximetry 99 Oxygen Delivery Method Room Air - Lab Data Lab results reviewed: Yes: I reviewed the patient's lab results. Lab Results 08/31/19 17:55: Influenza Type A Ag Negative, Influenza Type B Ag Negative 08/31/19 17:55: Strep Scn Rapid Clinic Negative Orders (Tests/Meds): ORDERS Category Date Time Status Strep Screen Confirmation Stat Micro 08/31/19 17:55 Received - Radiology Data #1 Image(s): Chest Image Reviewed: Yes I have reviewed radiologist's interpretation Preliminary Findings: Normal/NAD [place] HPI - General Stated complaint: chest congestion Time Seen by Provider: 08/31/19 18:06 Mode of Arrival: Ambulatory Source of Information: Patient Limitations: No Limitations Description of Symptoms (Recalled from Triage Doc. by RN): Pt c/o chest congestion, sore throat, cough, chills and hot flashes since Wednesday. HEENT Symptoms (Recalled from RN notes): Yes (sore throat) Resp Symptoms (Recalled from RN notes): Yes (chest congestion, cough) Skin Symptoms (Recalled from RN notes): No MS Symptoms (Recalled from RN notes): No Functional Status (Recalled from RN notes): n/a - History of Present Illness Provider Complaint: Patient states that she is an everyday smoker States that for the last couple of days she has been having sinus pain and pressure along with drainage, sore throat and feels like it is moving into her chest States that she was worried that she was getting bronchitis so she came into get checked State that she hasnt had a fever that
[2019-08-31 18:24] VITALS: BP 130/84; PULSE 82; RESP 16; TEMP 37.2; O2SAT 98
== END 2019-08-31 18:24 | disposition home or self-care (01) ==
PROVIDERS: Emergency Provider Nurse Practitioner; PCP Physician Assistant
DX: J20.9 Acute bronchitis, unspecified (principal); J32.9 Chronic sinusitis, unspecified; F17.210 Nicotine dependence, cigarettes, uncomplicated
CPT/HCPCS: 71046; 87804; 87880; 99202

== ENCOUNTER 2019-09-27 20:01 | Emergency (ER) | payer OTHER, SELFPAY ==
[2019-09-27 20:02] VITALS: BP 139/69; PULSE 103; RESP 19; TEMP 37.1; O2SAT 100; BMI 30.2
--- NOTE | 2019-09-27 20:20 | XR_ITS ---
PROCEDURE: XR KNEE RT 3V CLINICAL INDICATION: injury COMPARISON: No exams were available for comparison FINDINGS: No fracture or dislocation. No lytic or blastic change. There is normal mineralization. The joint spaces are well-preserved. No significant degenerative/arthritic changes. No erosive changes evident. Other findings:There is minimal fragmentation of the tibial tubercle not unusual and probably secondary to previous [place]-Schlatter's disease. IMPRESSION: No acute findings. Dictated by: Dr. Jonn Negron MD 09/28/2019 07:[address] Jonn Negron MD in [place] 09/28/2019 07:56
--- NOTE | 2019-09-27 20:25 | HMH.EDUTC ---
[facility] Disposition Clinical Impression: Knee sprain Qualifiers: Encounter type: initial encounter Involved ligament of knee: unspecified ligament Laterality: right Qualified Code(s): S83.91XA - Sprain of unspecified site of right knee, initial encounter Disposition: Home, Self-Care Condition on Discharge: Good Instructions: DI for Knee Sprain, How to Use an Elastic Bandage-Knee Sprain, Knee Sprain, How to Use Crutches Additional Instructions: *weight bearing as tolerated *RICE, Rest the extremity, Ice 15-20 minutes 3-4 times daily, Compress- wear the tommy wrap as discussed as much as possible to help reduce swelling and pain, Elevate the extremity when at rest *Tommy wrap is for support and help control swelling, use it except in the shower. Be sure that is not to tight but not to loose either *Elevate when resting *Ibuprofen every 6-8 hours as needed for pain an inflammation. If need something more can take Tylenol in between doses of Ibuprofen to help Immediately follow up with your family doctor for new or worsening of symptoms, or no noticeable improvement over the next 3-[address] Roberson office in the morning for appointment Return if needed Straight to ER if any life threatening symptoms Referrals: Malu Woo PA [Primary Care Provider] - As needed Mau Roberson MD [Staff Physician] - As needed (Call office for appointment ) Time of Disposition: 20:45 Medical Decision Making - Cesar Inquiry Pt receiving controlled substance: No Cesar was queried for this patient: No Vital Signs: 09/27/19 20:02 Temperature 98.8 F Temperature Source Oral Pulse Rate [Right] 103 H Respiratory Rate 19 Blood Pressure [Right Arm] 139/69 Blood Pressure Mean [Right Arm] 92 02 Sat by Pulse Oximetry 100 Orders (Tests/Meds): ORDERS Category Date Time Status Knee XR right 3 views [XR knee RT 3V] Stat Exams 09/27/19 20:20 Ordered - Radiology Data #1 Image(s): Knee Image Reviewed: Yes I reviewed the patient's radiology image ? tibial tuberosity avulsion fx - Physician Consults Physician Consulted: Da Time: 20:42 Reason -: Orthopedic Eval/Care Comment/Response: Spoke with Dr Roberson, advised believes may be john parekh, place in knee immobilizer, crutches and call office for appointment [facility] HPI - General Stated complaint: R knee pain Time Seen by Provider: 09/27/19 20:26 Mode of Arrival: Ambulatory Limitations: No Limitations Description of Symptoms (Recalled from Triage Doc. by RN): Injury to right knee one month ago HEENT Symptoms (Recalled from RN notes): No Resp Symptoms (Recalled from RN notes): No Skin Symptoms (Recalled from RN notes): No MS Symptoms (Recalled from RN notes): Yes Functional Status (Recalled from RN notes): na - History of Present Illness Provider Complaint: Patient states that she fell on steps about a month ago and hurt her right knee and foot State that she continued to walk on it and it was ok States that yesterday she went to get out of the truck and twisted her right knee and felt a pop and today was still hurting when she would walk so she came in to get it checked - Related Data Home Medications Medication Instructions Recorded Confirmed Gabapentin [Gabapentin 300mg Cap] 300 mg PO DAILY 03/24/19 07/19/19 Hydrocodone/Acetaminophen 7.5 mg PO DAILY 03/24/19 07/19/19 [Hydrocodone-Acetamin 7.5-325] Azithromycin [Zithromax 250mg 250 mg PO DIRECTED 07/19/19 07/19/19 tab] Benzonatate [Tessalon Perle 100mg 100 mg PO TID 07/19/19 07/19/19 Cap] predniSONE [Prednisone 20mg 20 mg PO BID MDD . 07/19/19 07/19/19 Tab] Previous Rx's Medication Instructions Recorded Ibuprofen [Ibuprofen 600mg 600 mg PO Q6HP PRN #30 tab 06/09/19 Tablet] Amoxicillin/Potassium Clav 1 tab PO Q12H 10 Days #20 tab 07/19/19 [Augmentin 875-125 Tablet] Brompheniramine/Pseudoephed/Dm 5 ml PO Q46H #200 ml 07/19/19 [Bromfed Dm Cough Syrup]
[2019-09-27 21:03] VITALS: BP 123/85; PULSE 80; RESP 20; TEMP 36.6; O2SAT 98
== END 2019-09-27 21:04 | disposition home or self-care (01) ==
PROVIDERS: Emergency Provider Nurse Practitioner; PCP Physician Assistant
DX: S83.91XA Sprain of unspecified site of right knee, initial encounter (principal); X50.1XXA Overexertion from prolonged static or awkward postures, initial encounter; Y92.019 Unspecified place in single-family (private) house as the place of occurrence of the external cause; F17.210 Nicotine dependence, cigarettes, uncomplicated
CPT/HCPCS: 29505; 73562; 99203

== ENCOUNTER 2019-12-06 19:03 | Emergency (ER) | payer OTHER, SELFPAY ==
[2019-12-06 19:31] VITALS: BP 149/91; PULSE 98; RESP 16; TEMP 37.1; O2SAT 100; BMI 28.5
--- NOTE | 2019-12-06 19:58 | HMH.EDUTC ---
[facility] [place] Disposition Clinical Impression: Dental infection Disposition: Home, Self-Care Condition on Discharge: Good Instructions: Tooth Abscess, Amoxicillin and Clavulanic Acid, Ibuprofen Additional Instructions: Take medication as prescribed *Over the counter Motrin for pain and fever Follow up with Dentist as soon as possible Return if needed Straight to ER if any life threatening symptoms Prescriptions: Amoxicillin/Potassium Clav [Augmentin 875-125 Tablet] 1 tab PO Q12H 10 Days #20 tab Transmission Status: Pending to [facility] #[id number] Referrals: Malu Woo PA [Primary Care Provider] - As needed Time of Disposition: 20:05 Medical Decision Making - Cesar Inquiry Pt receiving controlled substance: No Cesar was queried for this patient: No Vital Signs: 12/06/19 19:31 Temperature 98.7 F Temperature Source Oral Pulse Rate [Right] 98 H Respiratory Rate 16 Blood Pressure [Right Arm] 149/91 H Blood Pressure Mean [Right Arm] 110 Blood Pressure Source [Right Arm] Automatic Cuff Blood Pressure Position [Right Arm] Sitting 02 Sat by Pulse Oximetry 100 Oxygen Delivery Method Room Air - Lab Data Lab results reviewed: Yes: I reviewed the patient's lab results. [facility] [place] HPI - General Stated complaint: Dental pain Time Seen by Provider: 12/06/19 19:58 Mode of Arrival: Ambulatory Source of Information: Patient Limitations: No Limitations Description of Symptoms (Recalled from Triage Doc. by RN): Pt had some dental work last week but is still having pain. unsure whether she has a dental infection on her rihgt side or if she has an ear infection HEENT Symptoms (Recalled from RN notes): Yes (ear/dental pain) Resp Symptoms (Recalled from RN notes): No Skin Symptoms (Recalled from RN notes): No MS Symptoms (Recalled from RN notes): No Functional Status (Recalled from RN notes): na - History of Present Illness Provider Complaint: Patient states that she had dental work done last week on her left lower teeth and now having pain and swelling in her right jaw area States that she wasnt sure if she had a dental infection or ear infection States that over the last week it has continued to get worse so she come in to get it checked - Related Data Home Medications Medication Instructions Recorded Confirmed Gabapentin [Gabapentin 300mg Cap] 300 mg PO DAILY 03/24/19 07/19/19 Hydrocodone/Acetaminophen 7.5 mg PO DAILY 03/24/19 07/19/19 [Hydrocodone-Acetamin 7.5-325] Azithromycin [Zithromax 250mg 250 mg PO DIRECTED 07/19/19 07/19/19 tab] Benzonatate [Tessalon Perle 100mg 100 mg PO TID 07/19/19 07/19/19 Cap] predniSONE [Prednisone 20mg 20 mg PO BID MDD . 07/19/19 07/19/19 Tab] Previous Rx's Medication Instructions Recorded Ibuprofen [Ibuprofen 600mg 600 mg PO Q6HP PRN #30 tab 06/09/19 Tablet] Amoxicillin/Potassium Clav 1 tab PO Q12H 10 Days #20 tab 07/19/19 [Augmentin 875-125 Tablet] Brompheniramine/Pseudoephed/Dm 5 ml PO Q46H #200 ml 07/19/19 [Bromfed Dm Cough Syrup] Azithromycin [Z-Gilmar 250mg Tab] 250 mg PO DIRECTED #6 tab 08/31/19 Fluticasone Propionate [Flonase 1 spr NS DAILY #1 bottle 08/31/19 50mcg nasal spray 16gm] methylPREDNISolone [Medrol 4mg 4 mg PO DIRECTED #21 tab 08/31/19 tab] Amoxicillin/Potassium Clav 1 tab PO Q12H 10 Days #20 tab 12/06/19 [Augmentin 875-125 Tablet] Allergies Allergy/AdvReac Type Severity Reaction Status Date / Time No Known Allergies Allergy Verified 12/06/19 19:34 - Worker's Comp Is this a Worker's Comp case?: No [facility] History - Hepatitis A Screen Drug use history?: No High risk sexual behaviors?: No History of sexually transmitted infection?: No Currently employed?: No Childcare worker?: No Do you have indoor plumbing?: Yes Do you have electricity?: Yes Attestation statement:: This patient has been screened for Hepatitis A risk factors. I have reviewed the patient's past medi
[2019-12-06 20:10] VITALS: BP 146/80; PULSE 87; RESP 16; TEMP 36.8; O2SAT 98
== END 2019-12-06 20:11 | disposition home or self-care (01) ==
PROVIDERS: Emergency Provider Nurse Practitioner; PCP Physician Assistant
DX: K04.7 Periapical abscess without sinus (principal); F17.210 Nicotine dependence, cigarettes, uncomplicated
CPT/HCPCS: 99201

== ENCOUNTER 2020-01-15 20:00 | Emergency (ER) | payer OTHER, SELFPAY ==
[2020-01-15 20:42] VITALS: BP 139/79; PULSE 86; RESP 14; TEMP 36.6; O2SAT 100; BMI 29.7
--- NOTE | 2020-01-15 20:43 | XR_ITS ---
PROCEDURE: XR HAND RT MIN 3V CLINICAL INDICATION: PAIN Pain COMPARISON: CR HANDL3 HAND-LT-3 VIEWS from 11/20/2015 FINDINGS: No fracture or dislocation. No lytic or blastic change. There is normal mineralization. The joint spaces are well-preserved. No significant degenerative/arthritic changes. No erosive changes evident. Other findings:None. IMPRESSION: No acute findings. Dictated by: Segundo Caraballo MD 01/16/2020 05:42 Segundo Caraballo MD in [place] 01/16/2020 05:42
--- NOTE | 2020-01-15 20:46 | XR_ITS ---
PROCEDURE: XR WRIST RT MIN 3V CLINICAL INDICATION: FALL Pain COMPARISON: No exams were available for comparison FINDINGS: No fracture or dislocation. No lytic or blastic change. There is normal mineralization. The joint spaces are well-preserved. No significant degenerative/arthritic changes. No erosive changes evident. Other findings:None. IMPRESSION: No acute findings. Dictated by: Segundo Caraballo MD 01/16/2020 05:41 Segundo Caraballo MD in [place] 01/16/2020 05:41
--- NOTE | 2020-01-15 21:32 | HMH.EDUTC ---
[facility] [place] Impression: Tendonitis of wrist, right Disposition: Home, Self-Care Condition on Discharge: Good Instructions: Tendinopathy Additional Instructions: Rest the extremity, Elevate the extremity as tolerated while you are resting. Follow up with Dr. Perez. I put in a referral but you need to call her office and schedule an appointment. Follow up with your regular doctor. GO TO THE ER FOR ANY WORSENING SYMPTOMS Prescriptions: methylPREDNISolone [Medrol] 4 mg PO DIRECTED 6 Days #21 tab.[email or web address] Transmission Status: Received by [facility] Referrals: Malu Woo PA [Primary Care Provider] - Andreia Kidd MD [Physician] - Forms: Work/School Release Time of Disposition: 21:39 Medical Decision Making - Medical Records Medical records reviewed: No: I reviewed the patient's medical records. - Cesar Inquiry Pt receiving controlled substance: No Vital Signs: 01/15/20 20:42 01/15/20 21:40 Temperature 97.9 F 97.9 F Temperature Source Oral Pulse Rate 86 Pulse Rate [Right Brachial] 86 Respiratory Rate 14 14 Blood Pressure 139/79 Blood Pressure [Right Arm] 139/79 Blood Pressure Mean [Right Arm] 99 Blood Pressure Source [Right Arm] Automatic Cuff Blood Pressure Position [Right Arm] Sitting 02 Sat by Pulse Oximetry 100 Oxygen Delivery Method Room Air [facility] [place] - General Stated complaint: pain/swollen R wrist Time Seen by Provider: 01/15/20 21:32 Mode of Arrival: Ambulatory Source of Information: Patient Limitations: No Limitations Description of Symptoms (Recalled from Triage Doc. by RN): PATIENT C/O PAIN IN RIGHT HAND X 1 WEEK, NO KNOWN INJURY HEENT Symptoms (Recalled from RN notes): No Resp Symptoms (Recalled from RN notes): No Skin Symptoms (Recalled from RN notes): No MS Symptoms (Recalled from RN notes): Yes Functional Status (Recalled from RN notes): WNL - History of Present Illness Provider Complaint: she c/o right hand and wrist pain for the past 1 week. she denies any known injury or fall. - Related Data Home Medications Medication Instructions Recorded Confirmed Gabapentin [Gabapentin 300mg Cap] 300 mg PO DAILY 03/24/19 07/19/19 Hydrocodone/Acetaminophen 7.5 mg PO DAILY 03/24/19 07/19/19 [Hydrocodone-Acetamin 7.5-325] Azithromycin [Zithromax 250mg 250 mg PO DIRECTED 07/19/19 07/19/19 tab] Benzonatate [Tessalon Perle 100mg 100 mg PO TID 07/19/19 07/19/19 Cap] predniSONE [Prednisone 20mg 20 mg PO BID MDD . 07/19/19 07/19/19 Tab] Previous Rx's Medication Instructions Recorded Ibuprofen [Ibuprofen 600mg 600 mg PO Q6HP PRN #30 tab 06/09/19 Tablet] Amoxicillin/Potassium Clav 1 tab PO Q12H 10 Days #20 tab 07/19/19 [Augmentin 875-125 Tablet] Brompheniramine/Pseudoephed/Dm 5 ml PO Q46H #200 ml 07/19/19 [Bromfed Dm Cough Syrup] Azithromycin [Z-Gilmar 250mg Tab] 250 mg PO DIRECTED #6 tab 08/31/19 Fluticasone Propionate [Flonase 1 spr NS DAILY #1 bottle 08/31/19 50mcg nasal spray 16gm] methylPREDNISolone [Medrol 4mg 4 mg PO DIRECTED #21 tab 08/31/19 tab] Amoxicillin/Potassium Clav 1 tab PO Q12H 10 Days #20 tab 12/06/19 [Augmentin 875-125 Tablet] methylPREDNISolone [Medrol] 4 mg PO DIRECTED 6 Days #21 01/15/20 tab.ds.pk Allergies Allergy/AdvReac Type Severity Reaction Status Date / Time No Known Allergies Allergy Verified 12/06/19 19:34 - Worker's Comp Is this a Worker's Comp case?: No [facility] History - Hepatitis A Screen Drug use history?: No High risk sexual behaviors?: No History of sexually transmitted infection?: No Currently employed?: No Childcare worker?: No Do you have indoor plumbing?: Yes Do you have electricity?: Yes Attestation statement:: This patient has been screened for Hepatitis A risk factors. I have reviewed the patient's past medical history: Yes Medical History: Denies:: Cancer, Diabetes Mellitus Type 1, Diabetes Mellit
[2020-01-15 21:40] VITALS: BP 139/79; PULSE 86; RESP 14; TEMP 36.6; O2SAT 100
== END 2020-01-15 21:41 | disposition home or self-care (01) ==
PROVIDERS: Emergency Provider Nurse Practitioner Family; PCP Physician Assistant
DX: M77.8 Other enthesopathies, not elsewhere classified (principal); F17.210 Nicotine dependence, cigarettes, uncomplicated
CPT/HCPCS: 73110; 73130; 99201

== ENCOUNTER → 2020-02-28 10:29 | Outpatient (CLI) | payer OTHER, SELFPAY | PROVIDERS: PCP Physician Assistant; Visit Provider Nurse Practitioner Family | DX: Z20.820 Contact with and (suspected) exposure to varicella (principal); U07.1 COVID-19 | CPT/HCPCS: U0003 ==

== ENCOUNTER → 2020-03-11 13:38 | Outpatient (CLI) | payer OTHER, SELFPAY ==
[2020-03-11 14:32] LABS: Adenovirus,PCR Not Detected (NotDetected); Bordetella Pertussis Not Detected (NotDetected); Chlamydophila Pneumoniae, PCR Not Detected (NotDetected); Coronavirus 229E Not Detected (NotDetected); Coronavirus NL63 Not Detected (NotDetected); Coronavirus OC43 Not Detected (NotDetected); Coronovirus HKU1,PCR Not Detected (NotDetected); Human Metapneumovirus Not Detected (NotDetected); Influenza A, PCR Not Detected (NotDetected); Influenza AH1, 2009 Not Detected (NotDetected); Influenza AH1, PCR Not Detected (NotDetected); Influenza AH3,PCR Not Detected (NotDetected); Influenza B, PCR Not Detected (NotDetected); Mycoplasma Pneumoniae, PCR Not Detected (NotDetected); Parainfluenza 1, PCR Not Detected (NotDetected); Parainfluenza 2, PCR Not Detected (NotDetected); Parainfluenza 3, PCR Not Detected (NotDetected); Parainfluenza 4, PCR Not Detected (NotDetected); Respiratory Syncytial Virus Not Detected (NotDetected); Rhinovirus/Enterovirus Not Detected (NotDetected)
[2020-03-11 22:48] LABS: Coronavirus 19, PCR Detected (NotDetected)
== END ==
PROVIDERS: PCP Emergency Medicine; Visit Provider Emergency Medicine
DX: Z20.828 Contact with and (suspected) exposure to other viral communicable diseases (principal); U07.1 COVID-19
CPT/HCPCS: 87581; 87633; 87798

== ENCOUNTER → 2020-03-18 15:24 | Outpatient (CLI) | payer OTHER, SELFPAY ==
[2020-03-18 19:14] LABS: Coronavirus 19 IgG Antibody Positive (Negative); Coronavirus 19 IgM Antibody Negative (Negative)
== END ==
PROVIDERS: PCP Emergency Medicine; Visit Provider Emergency Medicine
DX: Z86.19 Personal history of other infectious and parasitic diseases (principal)
CPT/HCPCS: 36415; 86328

== ENCOUNTER → 2020-08-20 14:50 | Outpatient (CLI) | payer OTHER, SELFPAY | PROVIDERS: Visit Provider Nurse Practitioner Family | DX: Z20.822 Contact with and (suspected) exposure to COVID-19 (principal); R05 Cough | CPT/HCPCS: U0003 ==

== ENCOUNTER 2020-11-03 16:54 | Emergency (ER) | payer OTHER, SELFPAY ==
[2020-11-03 17:26] VITALS: BP 150/97; PULSE 91; RESP 18; TEMP 36.8; O2SAT 98; BMI 33.2
--- NOTE | 2020-11-03 17:30 | HMH.EDUTC ---
[facility] – [place] Dis[place] Clinical Impression: Bronchitis, Bilateral lower extremity edema Disposition: Home, Self-Care Condition on Discharge: Good Prescriptions: Sulfamethoxazole/Trimethoprim [Bactrim DS tablet] 1 each PO BID 10 Days #20 tab Transmission Status: Pending to [facility] # hydroCHLOROthiazide [Hydrochlorothiazide 12.5mg Tab] 12.5 mg PO DAILY #30 tab Transmission Status: Pending to [facility] # predniSONE [Prednisone 20mg Tab] 20 mg PO BID 5 Days #10 tab Transmission Status: Pending to [facility] # Referrals: Malu Woo PA [Primary Care Provider] - Time of Disposition: 17:45 Medical Decision Making - Cesar Inquiry Pt receiving controlled substance: No [facility] [place] HPI - General Stated complaint: sore throat , coughing, swelling in both legs Time Seen by Provider: 11/03/20 17:31 - History of Present Illness Provider Complaint: Patient has had sore throat and cough for a few days. No fever. Daughter has strep so wanted to rule that out. Patient has had right flank pain for a few days and would like to rule out UTI. Patient has had swelling in her legs for the past few weeks. Both legs are swollen. No pain. She is not short of breath. Swelling goes down overnight. Onset (ago): day(s) (4) Location: chest, left, right, lower extremity Relieving factors: none Exacerbating factors: none Associated symptoms: denies other symptoms Treatments prior to arrival: none - Related Data Previous Rx's Medication Instructions Recorded amoxicillin 500 mg capsule 500 mg PO Q12H 10 Days #20 cap 08/20/20 Sulfamethoxazole/Trimethoprim 1 each PO BID 10 Days #20 tab 11/03/20 [Bactrim DS tablet] hydroCHLOROthiazide 12.5 mg PO DAILY #30 tab 11/03/20 [Hydrochlorothiazide 12.5mg Tab] predniSONE [Prednisone 20mg 20 mg PO BID 5 Days #10 tab 11/03/20 Tab] Allergies Allergy/AdvReac Type Severity Reaction Status Date / Time No Known Allergies Allergy Verified 08/20/20 13:13 [facility] History - Hepatitis A Screen Attestation statement:: This patient has been screened for Hepatitis A risk factors. I have reviewed the patient's past medical history: Yes Medical History: Denies:: Cancer, Diabetes Mellitus Type 1, Diabetes Mellitus Type 2, MRSA Other Surgeries: Yes: No Previous Surgery Amputation: No Fractures: No - Social History Smoking Status: Current every day smoker Tobacco Type: cigarettes # Packs/Day (cigarettes): 1 #Yrs smoked (if former smoker): 5 Alcohol Intake: never Substance Use Type: denies use Occupational Status: other Housing: house Family Hx:: No significant family history ROS Obtained: Yes All systems reviewed & no additional complaints - ENT Ears, Nose, Mouth, and Throat: Reports sore throat - Cardiovascular Cardiovascular: Reports pedal edema - Respiratory Respiratory: Reports cough Physical Exam - General General appearance: alert, in no apparent distress - Head Head exam: normocephalic - Eye Eye exam: Present: PERRL - ENT ENT exam: Present: normal oropharynx, TM's normal bilaterally - Neck Neck exam: Present: normal inspection - Chest Chest inspection: Present: normal inspection - Respiratory Respiratory exam: Present: wheezes - Cardiovascular Cardiovascular exam: Present: regular rate, normal rhythm - Extremities Exam Extremities exam: Present: pedal edema (2+ pitting to knee bilaterally) - Back Exam Back exam: Present: CVA tenderness (R). Absent: CVA tenderness (L) - Neurological Exam Neurological exam: Present: alert, oriented X3 - Psychiatric Psychiatric exam: Present: normal affect, normal mood - Skin Skin exam: Present: warm, dry, intact
[2020-11-03 17:46] LABS: Apearance,Urine Clear (Clear); Color,Urine Yellow (Yellow); Glucose,Urine (UA) Negative (Negative); Ketones,Urine Negative (Negative); Protein,Urine Negative (Negative)
[2020-11-03 17:47] LABS: Bilirubin,Urine Negative (Negative); Blood, Urine Trace (Negative); UTC Leukocyte Esterase,Urine Trace (Negative); UTC Nitrate,Urine Negative (Negative); Urobilinogen,Urine 0.2 EU/dl (0.2)
[2020-11-03 17:47] LABS: UTC Strep Screen (Rapid) Negative (Negative)
[2020-11-03 17:50] VITALS: BP 122/71; PULSE 76; RESP 18; TEMP 36.8; O2SAT 98
== END 2020-11-03 17:55 | disposition home or self-care (01) ==
PROVIDERS: Emergency Provider Physician Assistant; PCP Physician Assistant
DX: J20.9 Acute bronchitis, unspecified (principal); F17.210 Nicotine dependence, cigarettes, uncomplicated; R05 Cough
CPT/HCPCS: 81003; 87086; 87880; 99202; G0463

== ENCOUNTER 2020-11-11 06:03 | Emergency (ER) | payer OTHER, SELFPAY ==
[2020-11-11 06:05] VITALS: BP 132/79; PULSE 80; RESP 18; TEMP 36.8; O2SAT 98; BMI 33.6
--- NOTE | 2020-11-11 07:27 | HMH.EDGENADL ---
ED Disposition Condition on Discharge: Good - Critical Care Critical Care Time: No <Maximiliano Marrero - Last Filed: 11/11/20 08:09> Condition on Discharge: Good - Critical Care Critical Care Time: No <Irma Capps - Last Filed: 11/11/20 09:10> Clinical Impression: Peripheral edema Disposition: Home, Self-Care Additional Instructions: Recommend using compression stockings as needed for comfort If symptoms persist or worsen, please follow-up with your PCP Referrals: Malu Woo PA [Primary Care Provider] - Attestation: On 11/11/20, the high probability of a clinically significant, sudden or life threatening deterioration of the following system(s) required my full and direct attention, intervention and personal management. The time I documented below is in addition to time spent performing reported procedures but includes the following listed in this critical care notation. Medical Decision Making - Cesar Inquiry Pt receiving controlled substance: No - Lab Data Result diagrams: 11/11/20 07:00 11/11/20 07:00 <Maximiliano Marrero - Last Filed: 11/11/20 08:09> - Lab Data Result diagrams: 11/11/20 07:00 11/11/20 07:00 <Irma Capps - Last Filed: 11/11/20 09:10> Vital Signs: 11/11/20 06:05 Temperature 98.2 F Temperature Source Oral Pulse Rate [Right Brachial] 80 Respiratory Rate 18 Blood Pressure [Right Arm] 132/79 Blood Pressure Mean [Right Arm] 96 Blood Pressure Source [Right Arm] Automatic Cuff Blood Pressure Position [Right Arm] Sitting 02 Sat by Pulse Oximetry 98 Oxygen Delivery Method Room Air - Lab Data Lab Results 11/11/20 07:00: WBC 13.7 H, RBC 4.98, Hgb 14.9, Hct 43.9, MCV 88.2, MCH 29.9, MCHC 33.9, RDW 13.4, Plt Count 194, MPV 10.3, Neut % (Auto) 52.8, Lymph % (Auto) 26.6, Jackson % (Auto) 4.3, Eos % (Auto) 14.2 H, Baso % (Auto) 2.1 H, Neut # (Auto) 7.2, Lymph # (Auto) 3.6, Jackson # (Auto) 0.6, Eos # (Auto) 2.0 H, Baso # (Auto) 0.3 H 11/11/20 07:00: Sodium 136, Potassium 4.3, Chloride 102, Carbon Dioxide 28, Anion Gap 10.3, BUN 18 H, Creatinine 0.80, Estimated Creat Clear 163, Estimated GFR 86, Est GFR ( Amer) 104, Glucose 86, Calcium 8.8, Total Bilirubin 0.5, AST 38 H, ALT 26, Alkaline Phosphatase 74, NT-Pro-B Natriuret Pep 35.5, Total Protein 7.0, Albumin 4.2, Globulin 2.8, Albumin/Globulin Ratio 1.5 11/11/20 07:00: Serum HCG, Qual Negative 11/11/20 07:00: TSH 2.81, Free T4 Index 3.6 L, Thyroxine (T4) 11.0, T3 Uptake 33 Orders (Tests/Meds): ED MEDICATIONS Generic Name Dose Route Start Last Admin Trade Name Freq PRN Reason Stop Dose Admin Sodium Chloride 8 ml 11/11/20 06:30 Sodium Chloride 0.9% 10ml Vial IV 12/11/20 06:29 NEEDED PRN dilute pepcid Discontinued Medications Generic Name Dose Route Start Last Admin Trade Name Freq PRN Reason Stop Dose Admin Diphenhydramine HCl 25 mg 11/11/20 06:30 11/11/20 06:33 Diphenhydramine 50mg/Ml Vial IV 11/11/20 06:31 25 mg ONCE ONE Administration Famotidine 20 mg 11/11/20 06:30 11/11/20 06:33 Famotidine 20mg/2ml Vial IV 11/11/20 06:31 20 mg ONCE ONE Administration Sodium Chloride 1,000 mls @ 999 mls/hr 11/11/20 06:30 11/11/20 06:33 Sod Chlor 0.9% 1000ml Bag IV 11/11/20 07:30 999 mls/hr .Q1H1M NOE Administration Methylprednisolone Sodium Succinate 125 mg 11/11/20 06:30 11/11/20 06:33 Methylprednisolone Sod Succ 125mg Vial IV 11/11/20 06:31 125 mg ONCE ONE Administration - ECG Data Tracing #1 EKG interpreted by Maximiliano Marrero MD: Rhythm: sinus Rate: 81 Loco: normal Ectopy: none Conduction: normal ST Segment Changes: none T Wave Changes: none Q Waves: none No evidence of acute ischemia or injury Normal electrocardiogram (Maximiliano Marrero) Medical Decision Narrative: 8:00 PM: At shift change, I have discussed the patient with the oncoming physician, who will assume care of the patient at this time. I have discussed all clin
--- NOTE | 2020-11-11 07:38 | XR_ITS ---
PROCEDURE: XR CHEST 2V CLINICAL HISTORY: edema of legs COMPARISON: CR XR CHEST 2V from 03/24/2019 CR XR CHEST PORTABLE from 07/19/2019 CR XR CHEST 2V from 08/31/2019 FINDINGS: The cardiomediastinal silhouette and pulmonary vascularity are within normal limits. The lungs are clear without infiltrates, suspicious nodules, or pleural effusions. Nodular opacity overlies the left CP angle may be due to nipple shadow. There is mild thoracic kyphosis. IMPRESSION: No acute finding. Possible nipple shadow left lung base which could be confirmed with nipple markers Dictated by: Segundo Caraballo MD 11/11/2020 08:49 Segundo Caraballo MD in [place] 11/11/2020 08:49
--- NOTE | 2020-11-11 07:45 | ECG_ITS ---
APPROVED REPORT Exam: Resting ECG HR:81 bpm ECG Measurements Heart Rate 81 AXES MI 148 P 53 QRSd 72 QRS 47 QT 352 T 39 QTc 408 Conclusion Normal sinus rhythm with sinus arrhythmia Normal ECG Electronically signed by : Sean Marr, 11/12/2020 08:28:33
[2020-11-11 07:57] LABS: Chloride 102 mmol/L (98-107); Potassium 4.3 mmoL/L (3.5-5.1); Sodium 136 mmol/L (136-145)
[2020-11-11 08:00] LABS: Alanine Aminotransferase 26 U/L (12-78); Albumin Level 4.2 g/dl (3.5-5.0); Albumin/Globulin Ratio 1.5 (1.1-1.8); Alkaline Phosphatase 74 U/L (38-126); Anion Gap 10.3 mEq/L (5-15); Aspartate Amino Transferase 38 U/L (14-36); Bilirubin,Total 0.5 mg/dl (0.2-1.3); Blood Urea Nitrogen 18 mg/dl (7-17); Carbon Dioxide 28 mmol/L (22.0-30.0); Creatinine Clearance Estimated 163 mL/min (50-200); Estimated Glomerular Filt Rate 86 ml/min (>60); GFR (African American) 104 ML/MIN (>60); Globulin 2.8 g/dL (1.3-3.2)
[2020-11-11 08:01] LABS: Calcium 8.8 mg/dl (8.4-10.2); Glucose 86 mg/dl (74-100)
[2020-11-11 08:08] LABS: Basophils # 0.3 K/mm3 (0-0.2); Basophils % 2.1 % (0.1-2.0); Eosinophils % 14.2 % (0.1-12.0); Hematocrit 43.9 % (37.0-47.0); Hemoglobin 14.9 g/dL (12.2-16.2); Lymphocytes # 3.6 K/mm3 (0.7-4.5); Lymphocytes % 26.6 % (10-50); Mean Corpuscular HGB Conc 33.9 g/dL (31.8-35.4); Mean Corpuscular Hemoglobin 29.9 pg (27.0-31.2); Mean Corpuscular Volume 88.2 fl (81-99); Mean Platelet Volume 10.3 fl (7.4-10.4); Monocytes # 0.6 K/mm3 (0.1-1.0); Monocytes % 4.3 % (1.7-9.3); Neutrophils # 7.2 K/mm3 (1.8-7.8); Neutrophils % 52.8 % (37.0-80.0); Platelet Count 194 K/mm3 (142-424); Red Blood Count 4.98 M/mm3 (4.20-5.40); Red Cell Distribution Width 13.4 % (11.5-17.5); White Blood Count 13.7 K/mm3 (4.8-10.8)
[2020-11-11 08:09] LABS: HCG Qualitative, Serum Negative (Negative); NT Pro Brain Natriuretic Pep. 35.5 pg/mL (0-125)
[2020-11-11 08:21] LABS: Triiodothryronine (T3) Uptake 33 % (23.5-40.5)
[2020-11-11 08:22] LABS: Free Thyroxine Index 3.6 ug/dL (5.93-13.13)
[2020-11-11 08:35] LABS: Thyroid Stimulating Hormone 2.81 uIU/mL (0.465-4.68)
[2020-11-11 09:35] VITALS: BP 121/86; PULSE 90; RESP 18; TEMP 36.8; O2SAT 98
== END 2020-11-11 09:36 | disposition home or self-care (01) ==
PROVIDERS: Emergency Provider Emergency Medicine; PCP Physician Assistant
DX: R60.9 Edema, unspecified (principal); R21 Rash and other nonspecific skin eruption; F17.210 Nicotine dependence, cigarettes, uncomplicated
CPT/HCPCS: 71046; 80053; 83880; 84436; 84443; 84479; 84703; 85025; 93005; 96365; 96375; 99283

== ENCOUNTER → 2020-12-02 20:44 | Outpatient (CLI) | payer OTHER, SELFPAY | PROVIDERS: Visit Provider Nurse Practitioner Family | DX: Z20.822 Contact with and (suspected) exposure to COVID-19 (principal); J02.9 Acute pharyngitis, unspecified | CPT/HCPCS: U0003 ==

== ENCOUNTER → 2021-01-15 19:23 | Outpatient (CLI) | payer OTHER, SELFPAY ==
[2021-01-15 19:25] LABS: Adenovirus,PCR Not Detected (NotDetected); Bordetella Pertussis Not Detected (NotDetected); Chlamydophila Pneumoniae, PCR Not Detected (NotDetected); Coronavirus 19, PCR Not Detected (NotDetected); Coronavirus 229E Not Detected (NotDetected); Coronavirus NL63 Not Detected (NotDetected); Coronavirus OC43 Not Detected (NotDetected); Coronovirus HKU1,PCR Not Detected (NotDetected); Human Metapneumovirus Not Detected (NotDetected); Influenza A, PCR Not Detected (NotDetected); Influenza AH1, 2009 Not Detected (NotDetected); Influenza AH1, PCR Not Detected (NotDetected); Influenza AH3,PCR Not Detected (NotDetected); Influenza B, PCR Not Detected (NotDetected); Mycoplasma Pneumoniae, PCR Not Detected (NotDetected); Parainfluenza 1, PCR Not Detected (NotDetected); Parainfluenza 2, PCR Not Detected (NotDetected); Parainfluenza 3, PCR Not Detected (NotDetected); Parainfluenza 4, PCR Not Detected (NotDetected); Respiratory Syncytial Virus Not Detected (NotDetected)
[2021-01-15 20:55] LABS: Rhinovirus/Enterovirus Detected (NotDetected)
== END ==
PROVIDERS: Visit Provider Nurse Practitioner Family
DX: Z20.822 Contact with and (suspected) exposure to COVID-19 (principal); B34.1 Enterovirus infection, unspecified; R05.9 Cough, unspecified; R09.89 Other specified symptoms and signs involving the circulatory and respiratory systems; J02.9 Acute pharyngitis, unspecified
CPT/HCPCS: 87581; 87632; 87798; C9803; U0003; U0005

== ENCOUNTER 2021-02-13 15:06 | Emergency (ER) | payer OTHER, SELFPAY ==
[2021-02-13 15:10] VITALS: BP 140/86; PULSE 72; RESP 16; TEMP 36.9; O2SAT 100; BMI 31.1
[2021-02-13 15:44] LABS: UTC Strep Screen (Rapid) Negative (Negative)
--- NOTE | 2021-02-13 15:59 | HMH.EDUTC ---
[facility] [place] Dis[place] Clinical Impression: Viral upper respiratory infection Disposition: Home, Self-Care Condition on Discharge: Good Instructions: DI for Cough -- Adult, DI for Viral Upper Respiratory Infection -- Adult Additional Instructions: *Monitor Temp, Over the counter Motrin or Tylenol as directed/as needed Tylenol every 4 hours and Motrin every 6 hours (as long as your family doctor has told you that you can take it) for fever or pain. and straight to ER if unable to lower temp less than 101.0 after medication given *Warm salt water gargles may help to soothe the throat *Throat Lozenges *Warm fluids like tea with honey may help to soothe the throat *Sleep elevated *Humidifier/Vaporizer Your throat swab was sent for culture. Those results are typically sent to your primary care. Be sure to follow up in 2-3 days with your family doctor/primary care physician if no improvement so they can review those result and treat if necessary. If you don?t have a primary care doctor, I recommend you get one but in the mean time, you will have to return to a walk in clinic Follow up IMMEDIATELY for new or worsening symptoms or no Noticeable improvement over the next 48-72 hours. 911 for difficulty breathing or swallowing Referrals: Malu Woo PA [Primary Care Provider] - As needed Forms: Work/School Release Time of Disposition: 16:01 Medical Decision Making - Cesar Inquiry Pt receiving controlled substance: No Cesar was queried for this patient: No Vital Signs: 02/13/21 15:10 02/13/21 16:03 Temperature 98.4 F 98.4 F Temperature Source Oral Pulse Rate 72 Pulse Rate [Right Brachial] 72 Respiratory Rate 16 16 Blood Pressure 140/86 Blood Pressure [Right Arm] 140/86 Blood Pressure Mean [Right Arm] 104 Blood Pressure Source [Right Arm] Automatic Cuff Blood Pressure Position [Right Arm] Sitting 02 Sat by Pulse Oximetry 100 Oxygen Delivery Method Room Air - Lab Data Lab results reviewed: Yes: I reviewed the patient's lab results. Lab Results 02/13/21 15:41: Strep Scn Rapid Clinic Negative Orders (Tests/Meds): ORDERS Category Date Time Status Strep Screen Confirmation Stat Micro 02/13/21 15:41 Received [facility] [place] HPI - General Stated complaint: sore throat,ears,congestion Time Seen by Provider: 02/13/21 15:59 Mode of Arrival: Ambulatory Source of Information: Patient Limitations: No Limitations Description of Symptoms (Recalled from Triage Doc. by RN): PATIENT C/O EAR ACHE, SORE THROAT, SNEEZING AND COUGH X 3 DAYS HEENT Symptoms (Recalled from RN notes): Yes Resp Symptoms (Recalled from RN notes): Yes Skin Symptoms (Recalled from RN notes): No MS Symptoms (Recalled from RN notes): No Functional Status (Recalled from RN notes): WNL - History of Present Illness Provider Complaint: Patient states that she has been having sore throat, pain in both ears, nasal congestion for the last couple of days Statse that today she was still feeling bad so she came in to get checked - Related Data Home Medications Medication Instructions Recorded Confirmed No Known Home Medications 11/13/20 02/13/21 Allergies Allergy/AdvReac Type Severity Reaction Status Date / Time Sulfa (Sulfonamide Allergy Mild rash Verified 01/15/21 16:30 Antibiotics) - Worker's Comp Is this a Worker's Comp case?: No [facility] History - Hepatitis A Screen Drug use history?: No High risk sexual behaviors?: No History of sexually transmitted infection?: No Currently employed?: No Childcare worker?: No Do you have indoor plumbing?: Yes Do you have electricity?: Yes Attestation statement:: This patient has been screened for Hepatitis A risk factors. I have reviewed the patient's past medical history: Yes Medical History: Denies:: Cancer, Diabetes Mellitus Type 1, Diabetes Mellitus Type 2, MRSA Other Surgeries: Yes: No Previous Surgery Amputation: No Fractures: No - Social History Smoking
[2021-02-13 16:03] VITALS: BP 140/86; PULSE 72; RESP 16; TEMP 36.9; O2SAT 100
== END 2021-02-13 16:05 | disposition home or self-care (01) ==
PROVIDERS: Emergency Provider Nurse Practitioner; PCP Physician Assistant
DX: J06.9 Acute upper respiratory infection, unspecified (principal); F17.210 Nicotine dependence, cigarettes, uncomplicated
CPT/HCPCS: 87880; 99202; G0463

== ENCOUNTER → 2021-03-12 19:43 | Outpatient (CLI) | payer OTHER, SELFPAY | PROVIDERS: Visit Provider Nurse Practitioner Family | DX: Z20.822 Contact with and (suspected) exposure to COVID-19 (principal) | CPT/HCPCS: C9803; U0003; U0005 ==

== ENCOUNTER 2021-03-29 09:22 | Emergency (ER) | payer OTHER, SELFPAY ==
[2021-03-29 10:35] VITALS: BP 151/87; PULSE 95; RESP 16; TEMP 37.4; O2SAT 98; BMI 29.5
[2021-03-29 11:01] LABS: UTC Influenza A Antigen Negative (Negative)
[2021-03-29 11:02] LABS: UTC Influenza B Antigen Negative (Negative); UTC Strep Screen (Rapid) Negative (Negative)
--- NOTE | 2021-03-29 11:12 | HMH.EDUTC ---
[facility] [place] Clinical Impression: Viral syndrome Pharyngitis Qualifiers: Pharyngitis/tonsillitis etiology: unspecified etiology Qualified Code(s): J02.9 - Acute pharyngitis, unspecified Disposition: Home, Self-Care Condition on Discharge: Good Instructions: DI for Strep Throat, DI for Influenza -- Adult Additional Instructions: Drink plenty of fluids. Take tylenol or ibuprofen for pain or fever. Take the medications as directed. Follow up with your regular doctor. GO TO THE ER FOR ANY WORSENING SYMPTOMS Quarantine until you know the results of your covid-19 test. If it is positive, the health department should call you and give you further instructions about your length of Quarantine and other things. Notify your school or workplace of your results and follow their instructions regarding return to work/school. The cough medication (promethazine dm) will make you drowsy, so don't drive or operate heavy machinery after taking it. Prescriptions: Promethazine/Dextromethorphan [Promethazine-Dm Syrup] 5 ml PO Q6HP PRN #240 ml PRN Reason: Cough Transmission Status: Received by [facility] Ondansetron [Zofran 4mg ODT] 4 mg PO Q8HP PRN #20 tab PRN Reason: Nausea Transmission Status: Received by [facility] methylPREDNISolone [Medrol] 4 mg PO DIRECTED 6 Days #21 packet Transmission Status: Received by [facility] Cefdinir [Omnicef 300mg Capsule] 300 mg PO BID #20 cap Transmission Status: Received by [facility] Referrals: Malu Woo PA [Primary Care Provider] - Forms: Work/School Release Time of Disposition: 11:41 Medical Decision Making - Medical Records Medical records reviewed: No: I reviewed the patient's medical records. - Cesar Inquiry Pt receiving controlled substance: No Vital Signs: 03/29/21 10:35 03/29/21 12:00 Temperature 99.3 F 99.3 F Temperature Source Oral Pulse Rate 95 H Pulse Rate [Left] 95 H Respiratory Rate 16 16 Blood Pressure 151/87 H Blood Pressure [Right Arm] 151/87 H Blood Pressure Mean [Right Arm] 108 02 Sat by Pulse Oximetry 98 - Lab Data Lab results reviewed: Yes: I reviewed the patient's lab results. Lab Results 03/29/21 10:40: Strep Scn Rapid Clinic Negative 03/29/21 10:40: Influenza Type A Ag Negative, Influenza Type B Ag Negative 03/29/21 11:00: Chlamy pneumoniae PCR Not detected, Adenovirus (PCR) Not detected, B. pertussis DNA (PCR) Not detected, Coronavirus OC43 (PCR) Not detected, Coronavirus HKU1 (PCR) Not detected, Coronavirus 229E (PCR) Not detected, SARS-CoV-2 (PCR) Not detected, Coronavirus NL63 (PCR) Not detected, Human Metapneumovir PCR Detected A, Influenza A (H1) PCR Not detected, Influ A (H1N1/09) PCR Not detected, Influenza A (H3) PCR Not detected, Influenza Type A (PCR) Not detected, Influenza Type B (PCR) Not detected, M. pneumoniae (PCR) Not detected, Parainfluenza 1 (PCR) Not detected, Parainfluenza 2 (PCR) Not detected, Parainfluenza 3 (PCR) Not detected, Parainfluenza 4 (PCR) Not detected, RSV (PCR) Not detected, Entero/Rhino (PCR) Not detected Orders (Tests/Meds): ED MEDICATIONS Discontinued Medications Generic Name Dose Route Start Last Admin Trade Name Freq PRN Reason Stop Dose Admin Ondansetron HCl 4 mg 03/29/21 11:39 03/29/21 11:43 Ondansetron 4mg Odt SL 03/29/21 11:40 4 mg ONCE ONE Administration ORDERS Category Date Time Status Strep Screen Confirmation Routine Micro 03/29/21 10:40 Received [facility] [place]PI - General Stated complaint: fever, sore throat, cough, congestion, body aches Time Seen by Provider: 03/29/21 11:12 Mode of Arrival: Ambulatory Source of Information: Patient Limitations: No Limitations Description of Symptoms (Recalled from Triage Doc. by RN): pt c/o cough, sore throat, ONEAL, nasal drainage/congestion, sneezing and n/v. x2 days. pts daughter is positive for strep and flu B. HEENT Symptoms (Recalled from RN note
[2021-03-29 12:00] VITALS: BP 151/87; PULSE 95; RESP 16; TEMP 37.4
[2021-03-29 12:07] LABS: Adenovirus,PCR Not Detected (NotDetected); Bordetella Pertussis Not Detected (NotDetected); Chlamydophila Pneumoniae, PCR Not Detected (NotDetected); Coronavirus 19, PCR Not Detected (NotDetected); Coronavirus 229E Not Detected (NotDetected); Coronavirus NL63 Not Detected (NotDetected); Coronavirus OC43 Not Detected (NotDetected); Coronovirus HKU1,PCR Not Detected (NotDetected); Influenza A, PCR Not Detected (NotDetected); Influenza AH1, 2009 Not Detected (NotDetected); Influenza AH1, PCR Not Detected (NotDetected); Influenza AH3,PCR Not Detected (NotDetected); Influenza B, PCR Not Detected (NotDetected); Mycoplasma Pneumoniae, PCR Not Detected (NotDetected); Parainfluenza 1, PCR Not Detected (NotDetected); Parainfluenza 2, PCR Not Detected (NotDetected); Parainfluenza 3, PCR Not Detected (NotDetected); Parainfluenza 4, PCR Not Detected (NotDetected); Respiratory Syncytial Virus Not Detected (NotDetected); Rhinovirus/Enterovirus Not Detected (NotDetected)
[2021-03-29 14:04] LABS: Human Metapneumovirus Detected (NotDetected)
== END 2021-03-29 12:01 | disposition home or self-care (01) ==
PROVIDERS: Emergency Provider Nurse Practitioner Family; PCP Physician Assistant
DX: J02.9 Acute pharyngitis, unspecified (principal); B34.9 Viral infection, unspecified; Z88.2 Allergy status to sulfonamides
CPT/HCPCS: 87581; 87632; 87798; 87804; 87880; 99203; C9803; G0463; U0003; U0005

== ENCOUNTER 2021-04-01 12:04 | Emergency (ER) | payer OTHER, SELFPAY ==
[2021-04-01 12:05] VITALS: BP 144/80; PULSE 84; RESP 19; TEMP 37.1; O2SAT 98; BMI 35.9
--- NOTE | 2021-04-01 12:37 | HMH.EDUTC ---
[facility] [place]ression: Cough Disposition: Home, Self-Care Condition on Discharge: Good Instructions: Cough, Albuterol Oral Inhalation, Guaifenesin, Human Metapneumovirus Infection Additional Instructions: *Monitor Temp, Over the counter Motrin or Tylenol as directed/as needed Tylenol every 4 hours and Motrin every 6 hours (as long as your family doctor has told you that you can take it) for fever or pain. and straight to ER if unable to lower temp less than 101.0 after medication given *Warm salt water gargles may help to soothe the throat *Throat Lozenges *Warm fluids like tea with honey may help to soothe the throat *Sleep elevated *Humidifier/Vaporizer *Continue taking prescribed steriods Take mucinex during the day for your cough and make sure to drink plenty of water with it Use inhaler as advised in the UTC Follow up IMMEDIATELY for new or worsening symptoms or no Noticeable improvement over the next 48-72 hours. 911 for difficulty breathing or swallowing Prescriptions: Albuterol Sulfate [Proventil-HFA 90mcg/puff Inh] 1 - 2 puffs IH Q6HP PRN #1 each PRN Reason: Shortness Of Breath Transmission Status: Pending to [facility] # guaiFENesin [Mucinex 600mg tablet] 1 - 2 tab PO Q12HP PRN #20 tab PRN Reason: Congestion Transmission Status: Pending to [facility] # Referrals: Malu Woo PA [Primary Care Provider] - Forms: Work/School Release Time of Disposition: 12:53 Medical Decision Making - Cesar Inquiry Pt receiving controlled substance: No Cesar was queried for this patient: No Vital Signs: 04/01/21 12:05 Temperature 98.7 F Temperature Source Oral Pulse Rate [Right Brachial] 84 Respiratory Rate 19 Blood Pressure [Right Arm] 144/80 H Blood Pressure Mean [Right Arm] 101 Blood Pressure Source [Right Arm] Automatic Cuff Blood Pressure Position [Right Arm] Sitting 02 Sat by Pulse Oximetry 98 Oxygen Delivery Method Room Air [facility] [place] - General Stated complaint: cough, sore throat, congestion, soa Time Seen by Provider: 04/01/21 12:37 Mode of Arrival: Ambulatory Source of Information: Patient Limitations: No Limitations Description of Symptoms (Recalled from Triage Doc. by RN): PATIENT C/O COUGH, SORE THROAT, CONGESTION, SOA. 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 and makes her cough more States that she wasnt feeling any better so she came back in today to get checked - Related Data Previous Rx's Medication Instructions Recorded ondansetron 8 mg disintegrating 8 mg PO Q8H PRN 4 Days #12 tab 03/12/21 tablet Cefdinir [Omnicef 300mg Capsule] 300 mg PO BID #20 cap 03/29/21 Ondansetron [Zofran 4mg ODT] 4 mg PO Q8HP PRN #20 tab 03/29/21 Promethazine/Dextromethorphan 5 ml PO Q6HP PRN #240 ml 03/29/21 [Promethazine-Dm Syrup] methylPREDNISolone [Medrol] 4 mg PO DIRECTED 6 Days #21 03/29/21 packet Albuterol Sulfate [Proventil-HFA 1 - 2 puffs IH Q6HP PRN #1 each 04/01/21 90mcg/puff Inh] guaiFENesin [Mucinex 600mg tablet] 1 - 2 tab PO Q12HP PRN #20 tab 04/01/21 Allergies Allergy/AdvReac Type Severity Reaction Status Date / Time Sulfa (Sulfonamide Allergy Mild rash Verified 03/12/21 13:12 Antibiotics) - Worker's Comp Is this a Worker's Comp case?: No [facility] History - Hepatitis A Screen Drug use history?: No High risk sexual behaviors?: No History of sexually tr
[2021-04-01 12:55] VITALS: BP 144/80; PULSE 84; RESP 19; TEMP 37.1; O2SAT 98
== END 2021-04-01 12:59 | disposition home or self-care (01) ==
PROVIDERS: Emergency Provider Nurse Practitioner; PCP Physician Assistant
DX: R05.1 Acute cough (principal); J02.9 Acute pharyngitis, unspecified; F17.210 Nicotine dependence, cigarettes, uncomplicated
CPT/HCPCS: 99202; G0463

== ENCOUNTER 2021-04-13 10:51 | Emergency (ER) | payer OTHER, SELFPAY ==
[2021-04-13 11:52] VITALS: BP 149/83; PULSE 68; RESP 18; TEMP 36.7; O2SAT 99; BMI 30.8
--- NOTE | 2021-04-13 11:55 | HMH.EDUTC ---
[facility] [place]: Strep throat Disposition: Home, Self-Care Condition on Discharge: Good Instructions: Strep Throat, DI for Strep Throat Additional Instructions: Drink plenty of fluids. Take tylenol or ibuprofen for pain or fever. Take the medications as directed. Follow up with your regular doctor. GO TO THE ER FOR ANY WORSENING SYMPTOMS Throw your tooth brush away and get a new one. Quarantine until you know the results of your covid-19 test. If it is positive, the health department should call you and give you further instructions about your length of Quarantine and other things. Notify your school or workplace of your results and follow their instructions regarding return to work/school. Prescriptions: methylPREDNISolone [Medrol] 4 mg PO DIRECTED 6 Days #21 packet Transmission Status: Received by [id number] Azithromycin [Z-Gilmar 250mg Tab*] 250 mg PO UD DOSE PK #6 tab [id number] Referrals: Malu Woo PA [Primary Care Provider] - Forms: Work/School Release Time of Disposition: 12:33 Medical Decision Making - Medical Records Medical records reviewed: No: I reviewed the patient's medical records. - Cesar Inquiry Pt receiving controlled substance: No Vital Signs: 04/13/21 11:52 04/13/21 12:46 Temperature 98.1 F 98.1 F Temperature Source Oral Pulse Rate 68 Pulse Rate [Left] 68 Respiratory Rate 18 18 Blood Pressure 149/83 H Blood Pressure [Right Arm] 149/83 H Blood Pressure Mean [Right Arm] 105 02 Sat by Pulse Oximetry 99 - Lab Data Lab results reviewed: Yes: I reviewed the patient's lab results. Lab Results 04/13/21 12:01: Strep Scn Rapid Clinic Positive A [facility] [place] - General Stated complaint: sore throat, cough Time Seen by Provider: 04/13/21 11:55 - History of Present Illness Provider Complaint: She c/o sore throat, sinus drainage and a cough for the past 2 days. - Related Data Previous Rx's Medication Instructions Recorded ondansetron 8 mg disintegrating 8 mg PO Q8H PRN 4 Days #12 tab 03/12/21 tablet Cefdinir [Omnicef 300mg Capsule] 300 mg PO BID #20 cap 03/29/21 Ondansetron [Zofran 4mg ODT] 4 mg PO Q8HP PRN #20 tab 03/29/21 methylPREDNISolone [Medrol] 4 mg PO DIRECTED 6 Days #21 03/29/21 packet Albuterol Sulfate [Proventil-HFA 1 - 2 puffs IH Q6HP PRN #1 each 04/01/21 90mcg/puff Inh] guaiFENesin [Mucinex 600mg tablet] 1 - 2 tab PO Q12HP PRN #20 tab 04/01/21 Azithromycin [Z-Gilmar 250mg Tab*] 250 mg PO UD DOSE PK #6 tab 04/13/21 methylPREDNISolone [Medrol] 4 mg PO DIRECTED 6 Days #21 04/13/21 packet Allergies Allergy/AdvReac Type Severity Reaction Status Date / Time Sulfa (Sulfonamide Allergy Mild rash Verified 03/12/21 13:12 Antibiotics) [facility] History - Hepatitis A Screen Attestation statement:: This patient has been screened for Hepatitis A risk factors. I have reviewed the patient's past medical history: Yes Medical History: Denies:: Cancer, Diabetes Mellitus Type 1, Diabetes Mellitus Type 2, MRSA Other Surgeries: Yes: No Previous Surgery Amputation: No Fractures: No - Social History Smoking Status: Current every day smoker Tobacco Type: cigarettes # Packs/Day (cigarettes): 1 #Yrs smoked (if former smoker): 5 Alcohol Intake: never Substance Use Type: denies use Occupational Status: other Housing: house Family Hx:: No significant family history ROS Obtained: Yes All systems reviewed & no additional complaints - Constitutional Constitutional: Reports as per HPI - Eyes Eyes: Denies eye discharge - ENT Ears, Nose, Mouth, and Throat: Reports as per HPI - Cardiovascular Cardiovascular: Denies chest pain - Respiratory Respiratory: Reports as per HPI Physical Exam - General General appearance: alert, in no apparent distress - Head Head exam: atraumatic, normocephalic, normal inspection
[2021-04-13 12:02] LABS: UTC Strep Screen (Rapid) Positive (Negative)
[2021-04-13 12:46] VITALS: BP 149/83; PULSE 68; RESP 18; TEMP 36.7
== END 2021-04-13 12:51 | disposition home or self-care (01) ==
PROVIDERS: Emergency Provider Nurse Practitioner Family; PCP Physician Assistant
DX: J02.0 Streptococcal pharyngitis (principal); F17.210 Nicotine dependence, cigarettes, uncomplicated
CPT/HCPCS: 87880; 99203; C9803; G0463; U0003; U0005

== ENCOUNTER 2021-04-29 17:00 | Emergency (ER) | payer OTHER, SELFPAY ==
[2021-04-29 17:45] VITALS: BP 176/83; PULSE 90; RESP 20; TEMP 36.8; O2SAT 100; BMI 33.7
--- NOTE | 2021-04-29 18:25 | HMH.EDUTC ---
[facility] – [place] Disposition Clinical Impression: Knee sprain Qualifiers: Encounter type: initial encounter Involved ligament of knee: unspecified ligament Laterality: right Qualified Code(s): S83.91XA - Sprain of unspecified site of right knee, initial encounter Disposition: Home, Self-Care Condition on Discharge: Good Instructions: How to Use Crutches, How To Perform RICE (Rest, Ice, Compress, Elevate), How to Use a Knee Immobilizer Additional Instructions: *weight bearing as tolerated *RICE, Rest the extremity, Ice 15-20 minutes 3-4 times daily, Compress- wear the viri wrap as discussed as much as possible to help reduce swelling and pain, Elevate the extremity when at rest *Knee immobilizer is for support and help control swelling, use it except in the shower. Be sure that is not to tight but not to loose either *Elevate when resting *Ibuprofen as directed on package every 6-8 hours as needed for pain an inflammation. If need something more can take Tylenol in between doses of Ibuprofen to help Immediately follow up with your family doctor for new or worsening of symptoms, or no noticeable improvement over the next 3-5 days Referrals: Malu Woo PA [Primary Care Provider] - As needed Mau Roberson MD [Staff Physician] - Forms: Work/School Release Medical Decision Making - Cesar Inquiry Pt receiving controlled substance: No Cesar was queried for this patient: No Vital Signs: 04/29/21 17:45 04/29/21 20:05 Temperature 98.2 F 98.2 F Temperature Source Oral Pulse Rate 90 Pulse Rate [Right Brachial] 90 Respiratory Rate 20 20 Blood Pressure 176/83 H Blood Pressure [Right Arm] 176/83 H Blood Pressure Mean [Right Arm] 114 Blood Pressure Source [Right Arm] Automatic Cuff Blood Pressure Position [Right Arm] Sitting 02 Sat by Pulse Oximetry 100 Oxygen Delivery Method Room Air Orders (Tests/Meds): ED MEDICATIONS Discontinued Medications Generic Name Dose Route Start Last Admin Trade Name Freq PRN Reason Stop Dose Admin Ketorolac Tromethamine 60 mg 04/29/21 19:59 04/29/21 20:01 Ketorolac 60mg/2ml Vial IM 04/29/21 20:00 60 mg ONCE ONE Administration - Radiology Data #1 Image(s): Knee Image Reviewed: Yes I reviewed the patient's radiology image Preliminary Findings: No Fracture Seen [facility] [place] HPI - General Stated complaint: R knee pain x 3 days Time Seen by Provider: 04/29/21 18:25 Mode of Arrival: Ambulatory Source of Information: Patient Limitations: No Limitations Description of Symptoms (Recalled from Triage Doc. by RN): PATIENT C/O RIGHT KNEE PAIN X 3 DAYS, NO KNOWN ACCIDENT HEENT Symptoms (Recalled from RN notes): No Resp Symptoms (Recalled from RN notes): No Skin Symptoms (Recalled from RN notes): No MS Symptoms (Recalled from RN notes): Yes Functional Status (Recalled from RN notes): WNL - History of Present Illness Provider Complaint: Patient state that she has been having pain in her right knee for the last 3 days States that she remembers twisting it when she was stepping off work truck last week State that she has pain when she tries to bare weight on it or States that pain is eased when if she keeps it straight States that pain has continued to get worse so tonight she came in to get it checked - Related Data Previous Rx's Medication Instructions Recorded ondansetron 8 mg disintegrating 8 mg PO Q8H PRN 4 Days #12 tab 03/12/21 tablet Cefdinir [Omnicef 300mg Capsule] 300 mg PO BID #20 cap 03/29/21 Ondansetron [Zofran 4mg ODT] 4 mg PO Q8HP PRN #20 tab 03/29/21 methylPREDNISolone [Medrol] 4 mg PO DIRECTED 6 Days #21 03/29/21 packet Albuterol Sulfate [Proventil-HFA 1 - 2 puffs IH Q6HP PRN #1 each 04/01/21 90mcg/puff Inh] guaiFENesin [Mucinex 600mg tablet] 1 - 2 tab PO Q12HP PRN #20 tab 04/01/21 Azithromycin [Z-Gilmar 250mg Tab*] 250 mg PO UD DOSE PK #6 tab 04/13/21 methylPREDNISolone [Medrol] 4 mg PO DIRECTED 6 Days #21 04/13/21 packet
--- NOTE | 2021-04-29 18:28 | XR_ITS ---
PROCEDURE INFORMATION: Exam: XR Right Knee Exam date and time: 04/29/2021 6:28 PM Age: 25 years old Clinical indication: Pain; Knee; Right; Additional info: Pain in right knee TECHNIQUE: Imaging protocol: XR Right knee. Views: 3 views. Total images: 3 COMPARISON: CR XR KNEE RT 3V 09/27/2019 8:22 PM FINDINGS: Bones/joints: No fracture. No blastic or lytic lesions. No gross joint effusion is present. Joint spaces are well-maintained. Well corticated ossification at the tibial tuberosity patellar tendon attachment site consistent with chronic changes of Lizette-Schlatter's. Soft tissues: No periostitis or osteolysis. No gross soft tissue abnormalities. No foreign bodies. Other findings: Normal alignment. IMPRESSION: 1. No acute findings. 2. Chronic changes of prior Lizette-Schlatter's.
[2021-04-29 20:05] VITALS: BP 176/83; PULSE 90; RESP 20; TEMP 36.8; O2SAT 100
== END 2021-04-29 20:08 | disposition home or self-care (01) ==
PROVIDERS: Emergency Provider Nurse Practitioner; PCP Physician Assistant
DX: S83.91XA Sprain of unspecified site of right knee, initial encounter (principal); X50.1XXA Overexertion from prolonged static or awkward postures, initial encounter; Y92.89 Other specified places as the place of occurrence of the external cause; F17.210 Nicotine dependence, cigarettes, uncomplicated
CPT/HCPCS: 29505; 73562; 96372; 99203; G0463

== ENCOUNTER → 2021-05-06 19:52 | Outpatient (CLI) | payer OTHER, SELFPAY | PROVIDERS: Visit Provider Nurse Practitioner Family | DX: Z20.822 Contact with and (suspected) exposure to COVID-19 (principal); J02.9 Acute pharyngitis, unspecified | CPT/HCPCS: C9803; U0003; U0005 ==

== ENCOUNTER 2021-05-08 18:15 | Emergency (ER) | payer OTHER, SELFPAY ==
[2021-05-08 19:20] VITALS: BP 143/92; PULSE 89; RESP 19; TEMP 37.2; O2SAT 100; BMI 32.7
[2021-05-08 19:43] LABS: UTC Strep Screen (Rapid) Negative (Negative)
--- NOTE | 2021-05-08 19:47 | HMH.EDUTC ---
[facility] [place] Clinical Impression: Viral upper respiratory illness Disposition: Home, Self-Care Condition on Discharge: Good Instructions: DI for COVID-19 (Suspected or Confirmed ), Preventing the Spread of Coronavirus Discharge Instructions Additional Instructions: *Monitor Temp, Over the counter Motrin or Tylenol as directed/as needed Tylenol every 4 hours and Motrin every 6 hours (as long as your family doctor has told you that you can take it) for fever or pain. and straight to ER if unable to lower temp less than 101.0 after medication given *Warm salt water gargles may help to soothe the throat *Throat Lozenges *Warm fluids like tea with honey may help to soothe the throat *Sleep elevated *Humidifier/Vaporizer Your throat swab was sent for culture. Those results are typically sent to your primary care. Be sure to follow up in 2-3 days with your family doctor/primary care physician if no improvement so they can review those result and treat if necessary. If you don?t have a primary care doctor, I recommend you get one but in the mean time, you will have to return to a walk in clinic Follow up IMMEDIATELY for new or worsening symptoms or no Noticeable improvement over the next 48-72 hours. 911 for difficulty breathing or swallowing You were tested for today for COVID19 your test result should be back in the next 48-72 hours, you may check your results on the [facility] My health portal If you are positive someone from the Hospital will be calling you Make sure to drink plenty of water and gatoraid and take vitamin C, D and zinc Prescriptions: Ondansetron [Zofran 4mg ODT] 4 mg PO TIDP PRN #9 tab PRN Reason: Vomiting Transmission Status: Pending to [email or web address] #[id number] Referrals: Malu Woo PA [Primary Care Provider] - Forms: Work/School Release Time of Disposition: 19:48 Medical Decision Making - Cesar Inquiry Pt receiving controlled substance: No Cesar was queried for this patient: No Vital Signs: 05/08/21 19:20 Temperature 99.0 F Temperature Source Oral Pulse Rate [Right Brachial] 89 Respiratory Rate 19 Blood Pressure [Right Arm] 143/92 H Blood Pressure Mean [Right Arm] 109 Blood Pressure Source [Right Arm] Automatic Cuff Blood Pressure Position [Right Arm] Sitting 02 Sat by Pulse Oximetry 100 Oxygen Delivery Method Room Air - Lab Data Lab results reviewed: Yes: I reviewed the patient's lab results. Lab Results 05/08/21 19:21: Strep Scn Rapid Clinic Negative Orders (Tests/Meds): ORDERS Category Date Time Status Covid-19 Nasal PCR ([facility]) Routine Lab 05/08/21 19:20 Received Strep Screen Confirmation Stat Micro 05/08/21 19:21 Received [facility] UTC HPI - General Stated complaint: covid test-exposed, symptoms Time Seen by Provider: 05/08/21 19:47 Mode of Arrival: Ambulatory Source of Information: Patient Limitations: No Limitations Description of Symptoms (Recalled from Triage Doc. by RN): PATIENT C/O COUGH, CONGESTION, SORE THROAT, HEADACHE, BODY ACHES, CHILLS, VOMITING, AND LOSS OF TASTE HEENT Symptoms (Recalled from RN notes): Yes Resp Symptoms (Recalled from RN notes): Yes Skin Symptoms (Recalled from RN notes): No MS Symptoms (Recalled from RN notes): No Functional Status (Recalled from RN notes): WNL - History of Present Illness Provider Complaint: Patient state that her sister that lives with her recently tested positive for COVID now she is having symptoms also States that she is having sore scratchy throat, fever, body aches and chills, nausea and loss of sense of taste so she came in again to get tested - Related Data Previous Rx's Medication Instructions Recorded Ondansetron [Zofran 4mg ODT] 4 mg PO TIDP PRN #9 tab 05/08/21 Allergies Allergy/AdvReac Type Severity Reaction Status Date / Time Sulfa (Sulfonamide Allergy Mild rash Verified 05/06/21 11:21 Antibiotics) - Worker's Comp Is this a Worker's Comp case?: No
[2021-05-08 19:50] VITALS: BP 143/92; PULSE 89; RESP 19; TEMP 37.2; O2SAT 100
== END 2021-05-08 19:58 | disposition home or self-care (01) ==
PROVIDERS: Emergency Provider Nurse Practitioner; PCP Physician Assistant
DX: J06.9 Acute upper respiratory infection, unspecified (principal); Z86.16 Personal history of COVID-19; F17.210 Nicotine dependence, cigarettes, uncomplicated
CPT/HCPCS: 87880; 99203; C9803; G0463; U0003; U0005

== ENCOUNTER 2021-07-07 09:14 | Emergency (ER) | payer OTHER, SELFPAY ==
[2021-07-07 10:20] VITALS: BP 133/88; PULSE 78; RESP 19; TEMP 36.7; O2SAT 98; BMI 31.0
--- NOTE | 2021-07-07 10:42 | HMH.EDUTC ---
[facility] – [place] Dis[place] Clinical Impression: Viral gastroenteritis Disposition: Home, Self-Care Condition on Discharge: Good Instructions: Diarrhea, Diarrhea (Alternative Therapy), Diarrhea (Alternative Therapy), DI for Nausea -- Adult Additional Instructions: Drink extra fluids with and between meals. If you have difficulty drinking, try very small amounts of water or suck on ice chips. ? Avoid fruit juices, as these do not replace minerals and can actually increase diarrhea. ? Children and adults can use sports drinks to replenish electrolytes. Younger children and infants should use products formulated for children, like oral rehydration solutions. ? Eat food in small amounts and let your stomach recover. ? Get lots of rest. You may feel tired or weak. ? No greasy or fried foods for the next 24-48 hours BRAT diet Bananas Rice Apples and [place] ? Make sure to drink plenty of liquids ? Return if needed ? Straight to ER if any life threatening symptoms ? Zofran as prescribed ? You was given an outpatient order for diarrhea panel, please collect specimen and bring back to outpatient lab then call back to the [facility] or follow up with family doctor for results ? Follow up with family doctor in the next 48-72 hours if no improvement or any worsening of symptoms Prescriptions: Ondansetron [Zofran 4mg ODT] 4 mg PO TIDP PRN #10 tab PRN Reason: Nausea Transmission Status: Pending to [facility] #[id number] Referrals: Malu Woo PA [Primary Care Provider] - As needed Forms: Work/School Release Time of Disposition: 10:47 Medical Decision Making - Cesar Inquiry Pt receiving controlled substance: No Cesar was queried for this patient: No Vital Signs: 07/07/21 10:20 Temperature 98.1 F Temperature Source Oral Pulse Rate [Right Brachial] 78 Respiratory Rate 19 Blood Pressure [Right Arm] 133/88 Blood Pressure Mean [Right Arm] 103 Blood Pressure Source [Right Arm] Automatic Cuff Blood Pressure Position [Right Arm] Sitting 02 Sat by Pulse Oximetry 98 Oxygen Delivery Method Room Air [facility] [place] HPI - General Stated complaint: diarrhea, vomiting, stomach ache Time Seen by Provider: 07/07/21 10:43 Mode of Arrival: Ambulatory Source of Information: Patient Limitations: No Limitations Description of Symptoms (Recalled from Triage Doc. by RN): PATIENT C/O DIARRHEA AND NAUSEA X 3 DAYS HEENT Symptoms (Recalled from RN notes): No Resp Symptoms (Recalled from RN notes): No Skin Symptoms (Recalled from RN notes): No MS Symptoms (Recalled from RN notes): No Functional Status (Recalled from RN notes): WNL - History of Present Illness Provider Complaint: Patient states that she has been having nausea and diarrhea for about 3-4 days States that she is not sure if she has been around anyone with stomach virus but states that she has continued with the diarreah so today she came in to get checked - Related Data Previous Rx's Medication Instructions Recorded Ondansetron [Zofran 4mg ODT] 4 mg PO TIDP PRN #10 tab 07/07/21 Allergies Allergy/AdvReac Type Severity Reaction Status Date / Time Sulfa (Sulfonamide Allergy Mild rash Verified 05/06/21 11:21 Antibiotics) - Worker's Comp Is this a Worker's Comp case?: No H History - Hepatitis A Screen Drug use history?: No High risk sexual behaviors?: No History of sexually transmitted infection?: No Currently employed?: No Childcare worker?: No Do you have indoor plumbing?: Yes Do you have electricity?: Yes Attestation statement:: This patient has been screened for Hepatitis A risk factors. I have reviewed the patient's past medical history: Yes Medical History: Denies:: Cancer, Diabetes Mellitus Type 1, Diabetes Mellitus Type 2, MRSA Other Surgeries: Yes: No Previous Surgery Amputation: No Fractures: No - Social History Smoking Status: Current every day smoker Tobacco Type: cigarettes # Packs/Day (cigarettes): 1 #Yrs smoked (if former smoker
[2021-07-07 10:50] VITALS: BP 133/88; PULSE 78; RESP 19; TEMP 36.7; O2SAT 98
[2021-07-08 00:56] LABS: Adenovirus F 40/41, stool Not Detected (NotDetected); Campylobacter Not Detected (NotDetected); Clostridium Difficile A/B, PCR Not Detected (NotDetected); Cryptosporidium Not Detected (NotDetected); Cyclospora Cayetanesis Not Detected (NotDetected); Entamoeba histolytica Not Detected (NotDetected); Enteroaggregative E coli Not Detected (NotDetected); Enteropathogenic E coli Not Detected (NotDetected); Enterotoxigenic E coli Not Detected (NotDetected); Giardia lamblia Not Detected (NotDetected); Norovirus Not Detected (NotDetected); Plesimonas Shigalloides, PCR Not Detected (NotDetected); Rotavirus A Not Detected (NotDetected); Salmonella, PCR Not Detected (NotDetected); Sapovirus Not Detected (NotDetected); Shiga-like toxin E coli Not Detected (NotDetected); Shigella Enterovasive E coli Not Detected (NotDetected); Vibrio Cholerae Not Detected (NotDetected); Vibrio, PCR Not Detected (NotDetected); Yersinia Entercolitica, PCR Not Detected (NotDetected)
[2021-07-08 04:04] LABS: Astrovirus Detected (NotDetected)
== END 2021-07-07 11:04 | disposition home or self-care (01) ==
PROVIDERS: Emergency Provider Nurse Practitioner; PCP Physician Assistant
DX: R11.2 Nausea with vomiting, unspecified (principal); R19.7 Diarrhea, unspecified; R10.9 Unspecified abdominal pain; F17.210 Nicotine dependence, cigarettes, uncomplicated; F41.9 Anxiety disorder, unspecified; Z79.52 Long term (current) use of systemic steroids; Z79.899 Other long term (current) drug therapy; Z88.2 Allergy status to sulfonamides
CPT/HCPCS: 87507; 99213; G0463

== ENCOUNTER 2021-07-28 13:12 | Emergency (ER) | payer OTHER, SELFPAY ==
[2021-07-28 13:53] VITALS: BP 141/78; PULSE 81; RESP 20; TEMP 36.8; O2SAT 100; BMI 35.6
[2021-07-28 14:05] LABS: UTC Influenza A Antigen Negative (Negative); UTC Influenza B Antigen Negative (Negative)
--- NOTE | 2021-07-28 14:06 | HMH.EDUTC ---
[facility] [place] Clinical Impression: Bronchitis Sinusitis Qualifiers: Sinusitis location: unspecified location Chronicity: acute Recurrence: non-recurrent Qualified Code(s): J01.90 - Acute sinusitis, unspecified Disposition: Home, Self-Care Condition on Discharge: Good Instructions: DI for Sinusitis, DI for Acute Bronchitis Additional Instructions: Drink plenty of fluids. Take tylenol or ibuprofen for pain or fever. Take the medications as directed. Follow up with your regular doctor. GO TO THE ER FOR ANY WORSENING SYMPTOMS Prescriptions: Promethazine/Dextromethorphan [Promethazine-Dm Syrup] 5 ml PO Q6HP PRN #240 ml PRN Reason: Cough Transmission Status: Received by [facility] # Ondansetron [Zofran 4mg ODT] 4 mg PO Q8HP PRN #20 tab PRN Reason: Nausea Transmission Status: Received by [facility] # methylPREDNISolone [Medrol] 4 mg PO DIRECTED 6 Days #21 packet Transmission Status: Received by [facility] # Cefdinir [Omnicef 300mg Capsule] 300 mg PO BID #20 cap Transmission Status: Received by [facility] # Referrals: Malu Woo PA [Primary Care Provider] - Forms: Work/School Release Time of Disposition: 14:35 Medical Decision Making - Medical Records Medical records reviewed: No: I reviewed the patient's medical records. - Cesar Inquiry Pt receiving controlled substance: No Vital Signs: 07/28/21 13:53 07/28/21 14:56 Temperature 98.3 F 98.3 F Temperature Source Oral Pulse Rate 81 Pulse Rate [Left] 81 Respiratory Rate 20 20 Blood Pressure 141/78 H Blood Pressure [Right Arm] 141/78 H Blood Pressure Mean [Right Arm] 99 02 Sat by Pulse Oximetry 100 - Lab Data Lab results reviewed: Yes: I reviewed the patient's lab results. Lab Results 07/28/21 13:49: Group A Strep Rapid Negative 07/28/21 13:50: Influenza Type A Ag Negative, Influenza Type B Ag Negative Orders (Tests/Meds): ORDERS Category Date Time Status Strep Screen Confirmation Stat Micro 07/28/21 13:49 Received [facility] [place] - General Stated complaint: congestion, sore throat, cough, bodyaches, chills Time Seen by Provider: 07/28/21 13:55 Mode of Arrival: Ambulatory Source of Information: Patient Limitations: No Limitations Description of Symptoms (Recalled from Triage Doc. by RN): pt c/o a cough, sore throat, congestion, chills and body aches x2 days. HEENT Symptoms (Recalled from RN notes): Yes Resp Symptoms (Recalled from RN notes): Yes Skin Symptoms (Recalled from RN notes): No MS Symptoms (Recalled from RN notes): No Functional Status (Recalled from RN notes): wnl - History of Present Illness Provider Complaint: For the past 2 days she has had a sore throat, chills, low grade fever, and malaise. - Related Data Previous Rx's Medication Instructions Recorded fluticasone propionate 50 1 spray INTRANASAL QDAY #9.9 ml 07/23/21 mcg/actuation nasal spray,suspension prednisone 20 mg tablet 20 mg PO BID #10 tab 07/23/21 Cefdinir [Omnicef 300mg Capsule] 300 mg PO BID #20 cap 07/28/21 Ondansetron [Zofran 4mg ODT] 4 mg PO Q8HP PRN #20 tab 07/28/21 Promethazine/Dextromethorphan 5 ml PO Q6HP PRN #240 ml 07/28/21 [Promethazine-Dm Syrup] methylPREDNISolone [Medrol] 4 mg PO DIRECTED 6 Days #21 07/28/21 packet Allergies Allergy/AdvReac Type Severity Reaction Status Date / Time Sulfa (Sulfonamide Allergy Mild rash Verified 05/06/21 11:21 Antibiotics) - Worker's Comp Is this a Worker's Comp case?: No [facility] History - Hepatitis A Screen Drug use history?: No High risk sexual behaviors?: No History of sexually transmitted infection?: No Currently employed?: No Childcare worker?: No Do you have indoor plumbing?: Yes Do you have electricity?: Yes Attestation statement:: This patient has been screened for Hepatitis A risk factors. I have reviewed the patient's past medical history
[2021-07-28 14:13] LABS: Strep Scrn Group A (Rapid) Negative (Negative)
[2021-07-28 14:56] VITALS: BP 141/78; PULSE 81; RESP 20; TEMP 36.8
== END 2021-07-28 15:01 | disposition home or self-care (01) ==
PROVIDERS: Emergency Provider Nurse Practitioner Family; PCP Physician Assistant
DX: J01.90 Acute sinusitis, unspecified (principal); M54.9 Dorsalgia, unspecified; M79.673 Pain in unspecified foot; F41.9 Anxiety disorder, unspecified; Z79.51 Long term (current) use of inhaled steroids; Z79.52 Long term (current) use of systemic steroids; Z88.2 Allergy status to sulfonamides; Z87.891 Personal history of nicotine dependence
CPT/HCPCS: 87430; 87804; 99213; G0463

== ENCOUNTER 2021-08-20 19:30 | Emergency (ER) | payer OTHER, SELFPAY ==
[2021-08-20 20:19] VITALS: PULSE 82; RESP 18; TEMP 36.8; O2SAT 99; BMI 36.6
--- NOTE | 2021-08-20 21:06 | HMH.EDUTC ---
[facility] – [place] Disposition Clinical Impression: Pain of left great toe, Nail fungal infection Cellulitis Qualifiers: Site of cellulitis: extremity Site of cellulitis of extremity: lower extremity Laterality: left Qualified Code(s): L03.116 - Cellulitis of left lower limb Disposition: Home, Self-Care Condition on Discharge: Good Instructions: Cellulitis Additional Instructions: Follow up with Dr. Perez. Her phone number will be on this paper work. Take the medications as directed. Rest and elevate the affected foot as much time as possible. Follow up with your primary care physician. GO TO THE ER FOR ANY WORSENING SYMPTOMS OR CONCERNS Prescriptions: Amoxicillin/Potassium Clav [Amox-Clav 875-125 mg Tablet] 1 tab PO BID #20 tab Transmission Status: Received by [facility] #[id number] Mupirocin [Bactroban 2% Ointment 22gm tube] 1 applicatio TP TID 7 Days #1 gm Transmission Status: Received by [facility] #[id number] Referrals: Malu Woo PA [Primary Care Provider] - Rhonda Perez DPM [Staff Physician] - Time of Disposition: 21:12 Medical Decision Making - Medical Records Medical records reviewed: No: I reviewed the patient's medical records. - Cesar Inquiry Pt receiving controlled substance: No Vital Signs: 08/20/21 20:19 08/20/21 21:21 Temperature 98.3 F 98.3 F Temperature Source Oral Pulse Rate 82 Pulse Rate [Radial] 82 Respiratory Rate 18 18 Blood Pressure 138/91 H 02 Sat by Pulse Oximetry 99 [facility] [place] HPI - General Stated complaint: toenail on left foot falling off, no injury Time Seen by Provider: 08/20/21 20:40 Mode of Arrival: Ambulatory Source of Information: Patient Limitations: No Limitations Description of Symptoms (Recalled from Triage Doc. by RN): pt here because she states that her left big toe nail is coming off. she is unable to pull it off herself. she is here for an opinion on removal HEENT Symptoms (Recalled from RN notes): No Resp Symptoms (Recalled from RN notes): No Skin Symptoms (Recalled from RN notes): Yes MS Symptoms (Recalled from RN notes): No Functional Status (Recalled from RN notes): wnl - History of Present Illness Provider Complaint: She has a painful and loose toe nail on her great toe on her left foot. This has been an ongoing issue for the past several weeks. She denies any injury. - Related Data Previous Rx's Medication Instructions Recorded fluticasone propionate 50 1 spray INTRANASAL QDAY #9.9 ml 07/23/21 mcg/actuation nasal spray,suspension prednisone 20 mg tablet 20 mg PO BID #10 tab 07/23/21 Cefdinir [Omnicef 300mg Capsule] 300 mg PO BID #20 cap 07/28/21 Ondansetron [Zofran 4mg ODT] 4 mg PO Q8HP PRN #20 tab 07/28/21 Promethazine/Dextromethorphan 5 ml PO Q6HP PRN #240 ml 07/28/21 [Promethazine-Dm Syrup] methylPREDNISolone [Medrol] 4 mg PO DIRECTED 6 Days #21 07/28/21 packet Amoxicillin/Potassium Clav 1 tab PO BID #20 tab 08/20/21 [Amox-Clav 875-125 mg Tablet] Mupirocin [Bactroban 2% Ointment 1 applicatio TP TID 7 Days #1 gm 08/20/21 22gm tube] Allergies Allergy/AdvReac Type Severity Reaction Status Date / Time Sulfa (Sulfonamide Allergy Mild rash Verified 08/20/21 20:22 Antibiotics) - Worker's Comp Is this a Worker's Comp case?: No [facility] History - Hepatitis A Screen Attestation statement:: This patient has been screened for Hepatitis A risk factors. I have reviewed the patient's past medical history: Yes Medical History: Denies:: Cancer, Diabetes Mellitus Type 1, Diabetes Mellitus Type 2, MRSA Other Surgeries: Yes: No Previous Surgery Amputation: No Fractures: No - Social History Smoking Status: Current every day smoker Tobacco Type: cigarettes # Packs/Day (cigarettes): 1 #Yrs smoked (if former smoker): 5 Alcohol Intake: never Substance Use Type: denies use Occupational Status: other Housing: house Family Hx:: No significant family history ROS
[2021-08-20 21:21] VITALS: BP 138/91; PULSE 82; RESP 18; TEMP 36.8
== END 2021-08-20 21:22 | disposition home or self-care (01) ==
PROVIDERS: Emergency Provider Nurse Practitioner Family; PCP Physician Assistant
DX: L03.116 Cellulitis of left lower limb (principal); B35.1 Tinea unguium; F17.210 Nicotine dependence, cigarettes, uncomplicated; Z88.2 Allergy status to sulfonamides
CPT/HCPCS: 99212; G0463

== ENCOUNTER 2021-09-20 15:38 | Emergency (ER) | payer OTHER, SELFPAY ==
[2021-09-20 16:30] VITALS: BP 144/81; PULSE 75; RESP 19; TEMP 36.8; O2SAT 99; BMI 28.3
[2021-09-20 16:50] LABS: Apearance,Urine Clear (Clear); Bilirubin,Urine Negative (Negative); Blood, Urine 2+ (Negative); Color,Urine Dark Yellow (Yellow); Glucose,Urine (UA) Negative (Negative); Ketones,Urine Negative (Negative); Protein,Urine 1+ (Negative); Specific Gravity, Urine 1.025 (1.005-1.030); UTC Leukocyte Esterase,Urine 2+ (Negative); UTC Nitrate,Urine Negative (Negative); Urobilinogen,Urine 1 EU/dl (0.2)
--- NOTE | 2021-09-20 17:07 | HMH.EDUTC ---
[facility] – [place] Disposition Clinical Impression: UTI (urinary tract infection) Qualifiers: Urinary tract infection type: site unspecified Hematuria presence: with hematuria Qualified Code(s): N39.0 - Urinary tract infection, site not specified Disposition: Home, Self-Care Condition on Discharge: Good Instructions: Urinary Tract Infection, DI for Urinary Tract Infection (UTI), Nitrofurantoin Additional Instructions: *Increase fluids. Water not Soda or Tea *Start antibiotic immediately and be sure to take as ordered for the FULL length of time although you should start to see improvement over the next 48 hours *Pyridium as needed Remember this medication will turn your urine [place]. This is normal but it will stain what ever it gets on *You should not use Pyridium for more than 48 hours. If so , follow up with your primary physician to review urine culture and ensure that antibiotic is adequate for infection *Be SURE to follow up anytime for new or worsening symptoms with your family doctor. AND in 48 hours for urine culture results with your family doctor, if you do not have a doctor then you may call back to the [facility] for urine culture results and further treatment. We do recommend that you choose and establish care with a Primary Care Physician. AND follow up with them in 10-14 days to repeat UA to ensure infection is resolved and blood no longer present *Be sure to let your PCP know that we sent urine cultures from the [facility] so they can follow up to ensure that you area the on the correct antibiotic Call your doctor office and make appointment for 48 hours (2 days from today) to follow up and get the results of your urine culture and further treatment Prescriptions: Nitrofurantoin Monohyd/M-Cryst [Macrobid 100 mg Capsule] 100 mg PO BID 7 Days #14 cap Transmission Status: Pending to [facility] Phenazopyridine HCl [Pyridium 200mg Tablet] 200 pow PO TID #6 tab Transmission Status: Pending to [facility] Referrals: Malu Woo PA [Primary Care Provider] - As needed Time of Disposition: 17:24 Medical Decision Making - Cesar Inquiry Pt receiving controlled substance: No Cesar was queried for this patient: No Vital Signs: 09/20/21 16:30 Temperature 98.2 F Temperature Source Oral Pulse Rate [Right Brachial] 75 Respiratory Rate 19 Blood Pressure [Right Arm] 144/81 H Blood Pressure Mean [Right Arm] 102 Blood Pressure Source [Right Arm] Automatic Cuff Blood Pressure Position [Right Arm] Sitting 02 Sat by Pulse Oximetry 99 Oxygen Delivery Method Room Air - Lab Data Lab results reviewed: Yes: I reviewed the patient's lab results. Lab Results 09/20/21 16:45: Urine Color Dark yellow, Urine Appearance Clear, Urine pH 7.0, Ur Specific [place] 1.025, Urine Protein 1+, Urine Glucose (UA) Negative, Urine Ketones Negative, Urine Blood 2+, Urine Nitrate Negative, Urine Bilirubin Negative, Urine Urobilinogen 1, Ur Leukocyte Esterase 2+ A Orders (Tests/Meds): ORDERS Category Date Time Status Urine Culture Stat Micro 09/20/21 16:45 Ordered [facility] [place] HPI - General Stated complaint: nausa Time Seen by Provider: 09/20/21 17:07 Mode of Arrival: Ambulatory Source of Information: Patient Limitations: No Limitations Description of Symptoms (Recalled from Triage Doc. by RN): PATIENT C/O BURNING WITH URINATION AND URGENCY SINCE THIS MORNING HEENT Symptoms (Recalled from RN notes): No Resp Symptoms (Recalled from RN notes): No Skin Symptoms (Recalled from RN notes): No MS Symptoms (Recalled from RN notes): No Functional Status (Recalled from RN notes): WNL - History of Present Illness Provider Complaint: Patient states that she has been having burning when she urinates and having the feeling of urgency and frequency since this morning and has continued to get worse throughout the day States that this evenind she was still having symptoms so she came in to get checked - Related Data Previous Rx's Medicat
[2021-09-20 17:35] VITALS: BP 144/81; PULSE 75; RESP 19; TEMP 36.8; O2SAT 99
[2021-09-20 19:16] LABS: UTC Pregnancy Test, Urine Negative (Negative)
== END 2021-09-20 17:39 | disposition home or self-care (01) ==
PROVIDERS: Emergency Provider Nurse Practitioner; PCP Physician Assistant
DX: N39.0 Urinary tract infection, site not specified (principal); A49.8 Other bacterial infections of unspecified site; R11.0 Nausea; M54.9 Dorsalgia, unspecified; F41.9 Anxiety disorder, unspecified; F17.210 Nicotine dependence, cigarettes, uncomplicated; Z79.52 Long term (current) use of systemic steroids; Z79.899 Other long term (current) drug therapy
CPT/HCPCS: 81003; 81025; 87086; 87088; 87186; 99213; G0463

== ENCOUNTER 2022-01-01 19:48 | Emergency (ER) | payer OTHER, SELFPAY ==
[2022-01-01 19:50] VITALS: RESP 18; TEMP 36.8; O2SAT 98; BMI 30.2
--- NOTE | 2022-01-01 20:35 | HMH.EDWNDL ---
Discharge Plan Disposition Patient Disposition: Home, Self-Care Chief Complaint: Wound/Laceration Prescriptions Prescriptions: No Action prednisone 20 mg tablet 20 mg PO BID Qty: 10 0RF Rx Instructions: administer with food or milk fluticasone propionate [Flonase Allergy Relief] 50 mcg/actuation spray,suspension 1 spray INTRANASAL QDAY Qty: 9.9 0RF Rx Instructions: administer into each nostril promethazine-DM 120 ML syrup 5 ml PO Q6HP PRN (Reason: Cough) Qty: 240 0RF ondansetron 4 MG tablet,disintegrating 4 mg PO Q8HP PRN (Reason: Nausea) Qty: 20 0RF cefdinir 300 MG capsule 300 mg PO BID Qty: 20 0RF methylprednisolone 4 MG tablets,dose pack 4 mg PO DIRECTED 6 Days Qty: 21 0RF phenazopyridine 200 MG tablet 200 pow PO TID Qty: 6 0RF nitrofurantoin monohyd/m-cryst 100 MG capsule 100 mg PO BID 7 Days Qty: 14 0RF amoxicillin-pot clavulanate 1 EACH tablet 1 tab PO BID Qty: 20 0RF mupirocin 22 GM ointment 1 applicatio TP TID 7 Days Qty: 1 0RF Referrals Follow up/Referrals: Malu Woo PA [Primary Care Provider] - See instructions Clinical Impressions Clinical Impression: Finger laceration Instructions Patient Instructions: DI for Laceration Repair Discharge ED Provider: Konstantin Pryor Wound/Laceration HPI General Chief Complaint: Wound/Laceration Stated Complaint: AO 01/01 @1730 LAC R FINGER Time Seen by Provider: 01/01/22 20:00 Mode of Arrival: Ambulatory Source of Information: Patient and Medical Record Limitations: No Limitations Description of Symptoms (Recalled from ER Triage Doc. by RN): pt reports that she was reaching into a glass and the glass broke and her had went down on the glass she has a laceration on her right index finger the pt reports that it feels like there is glass in the wound upon palpation there is a pot on the edge that causes a pressure like pain. History of Present Illness HPI narrative: lac rt index finger on glass at home Onset (ago): hour(s) Extremity Location: Right: hand Place: home Patient tetanus UTD: Yes Context: accidental Associated symptoms: none Related Data Previous Rx's Medication Instructions Recorded fluticasone propionate 50 1 spray intranasal QDAY #9.9 mL 07/23/21 mcg/actuation nasal spray,suspension (Flonase Allergy Relief) prednisone 20 mg tablet 20 mg PO BID #10 tabs 07/23/21 cefdinir 300 mg capsule 300 mg PO BID #20 caps 07/28/21 methylprednisolone 4 mg tablets in 4 mg PO DIRECTED 6 days #21 07/28/21 a dose pack packets ondansetron 4 mg disintegrating 4 mg PO Q8HP PRN Nausea #20 tabs 07/28/21 tablet promethazine-DM 6.25 mg-15 mg/5 mL 5 ml PO Q6HP PRN Cough #240 mL 07/28/21 oral syrup amoxicillin 875 mg-potassium 1 tab PO BID #20 tabs 08/20/21 clavulanate 125 mg tablet mupirocin 2 % topical ointment 1 applicatio topical TID 7 days ##1 08/20/21 nitrofurantoin 100 mg PO BID 7 days #14 caps 09/20/21 monohydrate/macrocrystals 100 mg capsule phenazopyridine 200 mg tablet 200 pow PO TID #6 tabs 09/20/21 Allergies Allergy/AdvReac Type Severity Reaction Status Date / Time Sulfa (Sulfonamide Allergy Mild rash Verified 08/20/21 20:22 Antibiotics) [facility] Medical History (Updated 01/01/22 @ 20:41 by Konstantin Pryor MD) Anxiety Back Pain Foot pain Social History Smoking Status: Current every day smoker tobacco type: cigarettes packs per day: 1 second hand exposure: Yes alcohol intake: never substance use type: denies use current occupational status: other Travel in the last 8 weeks: None housing: house ROS Obtained: Yes All systems reviewed & no additional complaints except as documented Physical Exam General General appearance: alert Head Head exam: normocephalic Eye Eye exam: Present PERRL and EOMI ENT ENT exam: Present mucous membranes moist Neck Neck exam: Present trachea midline Respiratory Respirator
[2022-01-01 20:45] VITALS: BP 153/86; PULSE 83; RESP 18; TEMP 36.8; O2SAT 98
== END 2022-01-01 20:48 | disposition home or self-care (01) ==
LOC: ER 20:45
PROVIDERS: Emergency Provider Emergency Medicine; PCP Physician Assistant
DX: S61.216A Laceration without foreign body of right little finger without damage to nail, initial encounter (principal); W25.XXXA Contact with sharp glass, initial encounter
CPT/HCPCS: 12001; 99283

== ENCOUNTER 2022-02-01 22:49 | Emergency (ER) | payer OTHER, SELFPAY ==
[2022-02-01 22:50] VITALS: BP 165/103; PULSE 90; RESP 16; TEMP 36.7; O2SAT 97; BMI 31.0
--- NOTE | 2022-02-01 22:58 | HMH.EDGENADL ---
Discharge Plan Disposition Patient Disposition: Home, Self-Care Condition: Good Prescriptions Prescriptions: New nitrofurantoin monohyd/m-cryst [Macrobid] 100 mg capsule 100 mg PO BID 5 Days Qty: 10 0RF Rx Instructions: must administer with a meal/food phenazopyridine [Pyridium] 100 mg tablet 100 mg PO Q8H PRN (Reason: pain) Qty: 10 0RF No Action prednisone 20 mg tablet 20 mg PO BID Qty: 10 0RF Rx Instructions: administer with food or milk fluticasone propionate [Flonase Allergy Relief] 50 mcg/actuation spray,suspension 1 spray INTRANASAL QDAY Qty: 9.9 0RF Rx Instructions: administer into each nostril promethazine-DM 120 ML syrup 5 ml PO Q6HP PRN (Reason: Cough) Qty: 240 0RF ondansetron 4 MG tablet,disintegrating 4 mg PO Q8HP PRN (Reason: Nausea) Qty: 20 0RF cefdinir 300 MG capsule 300 mg PO BID Qty: 20 0RF methylprednisolone 4 MG tablets,dose pack 4 mg PO DIRECTED 6 Days Qty: 21 0RF phenazopyridine 200 MG tablet 200 pow PO TID Qty: 6 0RF nitrofurantoin monohyd/m-cryst 100 MG capsule 100 mg PO BID 7 Days Qty: 14 0RF amoxicillin-pot clavulanate 1 EACH tablet 1 tab PO BID Qty: 20 0RF mupirocin 22 GM ointment 1 applicatio TP TID 7 Days Qty: 1 0RF Referrals Follow up/Referrals: Malu Woo PA [Primary Care Provider] - See instructions Activity Restrictions/Add. Instructions Additional Instructions/Restrictions: You have been evaluated for painful urination, diagnosed with a bladder infection, cystitis. Please take antibiotics as prescribed. Take Pyridium for bladder spasm. Okay to take Tylenol or ibuprofen for aches, pains, fever. Please follow-up with your primary care doctor. We have a culture of your urine that is pending, to make sure that you are on the right antibiotics. Return to the emergency department at once for any new or worsening symptoms, fever, vomiting, other concerns Clinical Impressions Clinical Impression: Cystitis Stand Alone Forms Stand Alone Forms: Work/School Release Instructions Patient Instructions: DI for Urinary Tract Infection (UTI) Discharge ED Provider: Loren Simon Adult HPI General Chief complaint: Urogenital-Female Stated complaint: POSSIBLE UTI Time Seen by Provider: 02/01/22 22:55 Mode of Arrival: Ambulatory Source of Information: Patient Limitations: No Limitations History of Present Illness HPI narrative: 26-year-old female presenting to the emergency department with dysuria. Symptoms started this morning. Had frequency of urination. Feels like she needs to urinate frequently, only passing a small amount. This evening, her urine was dark in color. Has some burning pain that is located in her bladder. She denies pain or burning at the skin. No lesions. No vaginal discharge. She denies concern for or sexually transmitted infections. Does not want to be screened tonight. She says she suffers from urinary tract infections frequently. Denies fevers, chills, nausea, vomiting. No recent antibiotic use. [place] well yesterday. Eating and drinking without difficulty Related Data Previous Rx's Medication Instructions Recorded fluticasone propionate 50 1 spray intranasal QDAY #9.9 mL 07/23/21 mcg/actuation nasal spray,suspension (Flonase Allergy Relief) prednisone 20 mg tablet 20 mg PO BID #10 tabs 07/23/21 cefdinir 300 mg capsule 300 mg PO BID #20 caps 07/28/21 methylprednisolone 4 mg tablets in 4 mg PO DIRECTED 6 days #21 07/28/21 a dose pack packets ondansetron 4 mg disintegrating 4 mg PO Q8HP PRN Nausea #20 tabs 07/28/21 tablet promethazine-DM 6.25 mg-15 mg/5 mL 5 ml PO Q6HP PRN Cough #240 mL 07/28/21 oral syrup amoxicillin 875 mg-potassium 1 tab PO BID #20 tabs 08/20/21 clavulanate 125 mg tablet mupirocin 2 % topical ointment 1 applicatio topical TID 7 days ##1 08/20/21 nitrofurantoin 100 mg PO BID 7 days #14 caps 09/20/21 mono
[2022-02-01 23:03] LABS: Microscopic, Urine URINE MICROSCOPIC (MICROSCOPIC)
[2022-02-01 23:05] LABS: Appearance,Urine CLOUDY (Clear); Bilirubin,Urine Negative (Negative); Blood, Urine 3+ (Negative); Color,Urine ORANGE (Yellow); Glucose,Urine (UA) Negative (Negative); Ketones,Urine Negative (Negative); Leukocyte Esterase,Urine TRACE (Negative); Nitrate,Urine Negative (Negative); Protein,Urine 2+ (Negative); Specific Gravity, Urine >= 1.030 (1.005-1.030)
[2022-02-01 23:08] LABS: Urine Pregnancy, HCG Qual. Negative (Negative)
[2022-02-01 23:21] LABS: Bacteria,Urine 2+ /lpf; RBC,Urine TNTC #/hpf (0-3)
--- NOTE | 2022-02-01 23:24 | CT_ITS ---
PROCEDURE INFORMATION: Exam: CT Abdomen And Pelvis Without Contrast Exam date and time: 02/01/2022 11:31 PM Age: 26 years old Clinical indication: Abdominal pain; Other: Painful urination; Additional info: Flank pain bilateral, painful urination TECHNIQUE: Imaging protocol: Computed tomography of the abdomen and pelvis without contrast. Radiation optimization: All CT scans at this facility use at least one of these dose optimization techniques: automated exposure control; mA and/or kV adjustment per patient size (includes targeted exams where dose is matched to clinical indication); or iterative reconstruction. COMPARISON: ABDPE CT abdomen pelvis w con 04/27/2018 8:19 PM FINDINGS: Limitations: Lack of intravenous contrast. Lungs: 1.3 cm LEFT lower lobe nodule, stable. Liver: Unremarkable. Gallbladder and bile ducts: No calcified stones. No ductal dilation. Pancreas: Unremarkable. No ductal dilation. Spleen: No splenomegaly. Adrenal glands: No mass. Kidneys and ureters: No renal calculi. Too small to characterize lesion within LEFT kidney (< 1 cm). No significant hydronephrosis. Stomach and bowel: No definite mural thickening. No obstruction. Appendix: Normal caliber. No inflammation. Intraperitoneal space: No significant fluid collection. No definite free air. Vasculature: Unremarkable. No abdominal aortic aneurysm. Lymph nodes: No pathologically enlarged lymph nodes. Urinary bladder: Collapsed bladder, limiting evaluation. Apparent minimal haziness about bladder. Reproductive: Unremarkable as visualized. Bones/joints: No acute fracture. Soft tissues: Tiny umbilical hernia containing fat. IMPRESSION: 1. No definite CT evidence of urolithiasis. 2. Possible cystitis. Correlate with urinalysis. COMMENTS: Consistent with the [employer]'s Incidental Findings Committee white paper (J Am Roc Radiol 2018): Any incidental renal lesion less than 1 cm or classified as too small to characterize, or any incidental cystic renal lesion characterized as simple-appearing, is likely benign. No follow-up imaging is recommended for these lesions per consensus recommendations based on imaging criteria.
[2022-02-01 23:40] LABS: Basophils # 0.2 K/mm3 (0-0.2); Basophils % 1.4 % (0.1-2.0); Eosinophils # 0.2 K/mm3 (0.0-0.4); Eosinophils % 1.7 % (0.1-12.0); Hematocrit 44.8 % (37.0-47.0); Hemoglobin 14.5 g/dL (12.2-16.2); Lymphocytes # 3.2 K/mm3 (0.7-4.5); Lymphocytes % 31.2 % (10-50); Mean Corpuscular HGB Conc 32.3 g/dL (31.8-35.4); Mean Corpuscular Hemoglobin 29.7 pg (27.0-31.2); Mean Corpuscular Volume 91.9 fl (81-99); Mean Platelet Volume 9.7 fl (7.4-10.4); Monocytes # 0.4 K/mm3 (0.1-1.0); Monocytes % 3.9 % (1.7-9.3); Neutrophils # 6.4 K/mm3 (1.8-7.8); Neutrophils % 61.8 % (37.0-80.0); Platelet Count 223 K/mm3 (142-424); Red Blood Count 4.88 M/mm3 (4.20-5.40); Red Cell Distribution Width 12.7 % (11.5-17.5); White Blood Count 10.4 K/mm3 (4.8-10.8)
[2022-02-01 23:48] LABS: Alanine Aminotransferase 30 U/L (12-78); Albumin Level 4.3 g/dl (3.5-5.0); Albumin/Globulin Ratio 1.5 (1.1-1.8); Alkaline Phosphatase 105 U/L (38-126); Aspartate Amino Transferase 32 U/L (14-36); Bilirubin,Total 0.2 mg/dl (0.2-1.3); Blood Urea Nitrogen 17 mg/dl (7-17); Calcium 8.8 mg/dl (8.4-10.2); Carbon Dioxide 26 mmol/L (22.0-30.0); Chloride 101 mmol/L (98-107); Creatinine Clearance Estimated 126 mL/min (50-200); Estimated Glomerular Filt Rate 66 ml/min (>60); GFR (African American) 80 ML/MIN (>60); Globulin 2.9 g/dL (1.3-3.2); Glucose 102 mg/dl (74-100); Sodium 141 mmol/L (136-145); Total Protein,Serum 7.2 g/dl (6.3-8.2)
--- NOTE | 2022-02-02 00:23 | PC.NURSE ---
Pt updated that scan results are back and that the DR should be in shortly. Pt provided with warm blanket. Pt advised that she felt better after receiving medications.
[2022-02-02 00:37] VITALS: BP 133/82; PULSE 87; RESP 17; TEMP 36.6; O2SAT 98
== END 2022-02-02 00:40 | disposition home or self-care (01) ==
PROVIDERS: Emergency Provider Emergency Medicine; PCP Physician Assistant
DX: N30.90 Cystitis, unspecified without hematuria (principal); B96.89 Other specified bacterial agents as the cause of diseases classified elsewhere; Z16.11 Resistance to penicillins; Z16.29 Resistance to other single specified antibiotic
CPT/HCPCS: 74176; 80053; 81001; 81025; 85025; 87086; 87088; 87186; 99284

== ENCOUNTER 2022-02-27 13:41 | Emergency (ER) | payer OTHER, SELFPAY ==
--- NOTE | 2022-02-27 14:05 | EXP.UTC ---
Discharge Plan Disposition Patient Disposition: Home, Self-Care Condition: Good Prescriptions Prescriptions: New phenazopyridine 200 mg Tablet 200 mg PO TID Qty: 6 0RF methylprednisolone 4 mg Tablets,Dose Pack 4 mg PO DIRECTED Qty: 21 0RF ondansetron 4 mg Tablet,Disintegrating 4 mg PO Q8H PRN (Reason: Nausea) Qty: 20 0RF cefdinir 300 mg capsule 300 mg PO BID Qty: 20 0RF No Action prednisone 20 mg tablet 20 mg PO BID Qty: 10 0RF Rx Instructions: administer with food or milk fluticasone propionate [Flonase Allergy Relief] 50 mcg/actuation spray,suspension 1 spray INTRANASAL QDAY Qty: 9.9 0RF Rx Instructions: administer into each nostril promethazine-DM 120 ML syrup 5 ml PO Q6HP PRN (Reason: Cough) Qty: 240 0RF ondansetron 4 MG tablet,disintegrating 4 mg PO Q8HP PRN (Reason: Nausea) Qty: 20 0RF cefdinir 300 MG capsule 300 mg PO BID Qty: 20 0RF methylprednisolone 4 MG tablets,dose pack 4 mg PO DIRECTED 6 Days Qty: 21 0RF phenazopyridine 200 MG tablet 200 pow PO TID Qty: 6 0RF nitrofurantoin monohyd/m-cryst 100 MG capsule 100 mg PO BID 7 Days Qty: 14 0RF amoxicillin-pot clavulanate 1 EACH tablet 1 tab PO BID Qty: 20 0RF mupirocin 22 GM ointment 1 applicatio TP TID 7 Days Qty: 1 0RF nitrofurantoin monohyd/m-cryst [Macrobid] 100 mg capsule 100 mg PO BID 5 Days Qty: 10 0RF Rx Instructions: must administer with a meal/food phenazopyridine [Pyridium] 100 mg tablet 100 mg PO Q8H PRN (Reason: pain) Qty: 10 0RF Referrals Follow up/Referrals: Malu Woo PA [Primary Care Provider] - See instructions Activity Restrictions/Add. Instructions Additional Instructions/Restrictions: Drink plenty of fluids. Take tylenol or ibuprofen for pain or fever. Take the medications as directed. Follow up with your regular doctor. GO TO THE ER FOR ANY WORSENING SYMPTOMS The pyridium will make your urine turn orange, this is an expected side effect. It will stain your clothes if it comes into contact with them. We will culture the urine. That will tell what bacteria is causing your infection and which antibiotics will treat it best. Sometimes the first antibiotic we prescribe turns out to not work against different bacteria. So, make sure you follow up within 3 days if you are not getting better. Clinical Impressions Clinical Impression: UTI (urinary tract infection), Sinusitis Stand Alone Forms Stand Alone Forms: Work/School Release Discharge ED Provider: Rafael Fry [facility] [place] General Stated complaint: Sore throat, Cough,Drainage,freq. urination Time Seen by Provider: 02/27/22 14:05 History of Present Illness Provider Complaint: She states that for the past 2 days she has had dysuria, low back pain and she has felt bad. Related Data Previous Rx's Medication Instructions Recorded fluticasone propionate 50 1 spray intranasal QDAY #9.9 mL 07/23/21 mcg/actuation nasal spray,suspension (Flonase Allergy Relief) prednisone 20 mg tablet 20 mg PO BID #10 tabs 07/23/21 cefdinir 300 mg capsule 300 mg PO BID #20 caps 07/28/21 methylprednisolone 4 mg tablets in 4 mg PO DIRECTED 6 days #21 07/28/21 a dose pack packets ondansetron 4 mg disintegrating 4 mg PO Q8HP PRN Nausea #20 tabs 07/28/21 tablet promethazine-DM 6.25 mg-15 mg/5 mL 5 ml PO Q6HP PRN Cough #240 mL 07/28/21 oral syrup amoxicillin 875 mg-potassium 1 tab PO BID #20 tabs 08/20/21 clavulanate 125 mg tablet mupirocin 2 % topical ointment 1 applicatio topical TID 7 days ##1 08/20/21 nitrofurantoin 100 mg PO BID 7 days #14 caps 09/20/21 monohydrate/macrocrystals 100 mg capsule phenazopyridine 200 mg tablet 200 pow PO TID #6 tabs 09/20/21 nitrofurantoin 100 mg PO BID 5 days #10 caps 02/02/22 monohydrate/macrocrystals 100 mg capsule (Macrobid) phenazopyridine 100 mg tablet 100 mg PO Q8H PRN pain #10 tabs 02/02
[2022-02-27 14:11] VITALS: BP 142/87; PULSE 90; RESP 16; TEMP 37; O2SAT 98; BMI 31.0
[2022-02-27 14:32] LABS: UTC Influenza A Antigen Negative (Negative); UTC Strep Screen (Rapid) Negative (Negative)
[2022-02-27 14:33] LABS: UTC Influenza B Antigen Negative (Negative)
[2022-02-27 14:46] LABS: Apearance,Urine Cloudy (Clear); Color,Urine Dark Yellow (Yellow); PH,Urine 8.5 (5.0-8.5)
[2022-02-27 14:47] LABS: Bilirubin,Urine Negative (Negative); Blood, Urine 3+ (Negative); Glucose,Urine (UA) Negative (Negative); Ketones,Urine Negative (Negative); Protein,Urine 1+ (Negative); UTC Leukocyte Esterase,Urine 2+ (Negative); UTC Nitrate,Urine Negative (Negative); Urobilinogen,Urine 0.2 EU/dl (0.2)
[2022-02-27 15:21] VITALS: BP 142/87; PULSE 90; RESP 16; TEMP 37
== END 2022-02-27 15:25 | disposition home or self-care (01) ==
PROVIDERS: Emergency Provider Nurse Practitioner Family; PCP Physician Assistant
DX: J32.9 Chronic sinusitis, unspecified (principal); N39.0 Urinary tract infection, site not specified
CPT/HCPCS: 81003; 87086; 87088; 87186; 87804; 87880; 99212; G0463

== ENCOUNTER 2022-03-20 16:51 | Emergency (ER) | payer OTHER, SELFPAY ==
--- NOTE | 2022-03-20 17:14 | EXP.UTC ---
Discharge Plan Disposition Patient Disposition: Home, Self-Care Condition: Good Prescriptions Prescriptions: New amoxicillin [amoxicillin] 500 mg tablet 500 mg PO TID 10 Days Qty: 30 0RF [id number] [Bromfed DM] 2-30-10 mg/5 mL Syrup 5 ml PO Q6H PRN (Reason: Cough) Qty: 240 0RF methylprednisolone 4 mg Tablets,Dose Pack 4 mg PO DIRECTED Qty: 21 0RF oseltamivir [Tamiflu] 75 mg capsule 75 mg PO BID Qty: 10 0RF No Action prednisone 20 mg tablet 20 mg PO BID Qty: 10 0RF Rx Instructions: administer with food or milk fluticasone propionate [Flonase Allergy Relief] 50 mcg/actuation spray,suspension 1 spray INTRANASAL QDAY Qty: 9.9 0RF Rx Instructions: administer into each nostril promethazine-DM 120 ML syrup 5 ml PO Q6HP PRN (Reason: Cough) Qty: 240 0RF ondansetron 4 MG tablet,disintegrating 4 mg PO Q8HP PRN (Reason: Nausea) Qty: 20 0RF cefdinir 300 MG capsule 300 mg PO BID Qty: 20 0RF methylprednisolone 4 MG tablets,dose pack 4 mg PO DIRECTED 6 Days Qty: 21 0RF phenazopyridine 200 MG tablet 200 pow PO TID Qty: 6 0RF nitrofurantoin monohyd/m-cryst 100 MG capsule 100 mg PO BID 7 Days Qty: 14 0RF amoxicillin-pot clavulanate 1 EACH tablet 1 tab PO BID Qty: 20 0RF mupirocin 22 GM ointment 1 applicatio TP TID 7 Days Qty: 1 0RF nitrofurantoin monohyd/m-cryst [Macrobid] 100 mg capsule 100 mg PO BID 5 Days Qty: 10 0RF Rx Instructions: must administer with a meal/food phenazopyridine [Pyridium] 100 mg tablet 100 mg PO Q8H PRN (Reason: pain) Qty: 10 0RF phenazopyridine 200 mg Tablet 200 mg PO TID Qty: 6 0RF methylprednisolone 4 mg Tablets,Dose Pack 4 mg PO DIRECTED Qty: 21 0RF ondansetron 4 mg Tablet,Disintegrating 4 mg PO Q8H PRN (Reason: Nausea) Qty: 20 0RF cefdinir 300 mg capsule 300 mg PO BID Qty: 20 0RF Referrals Follow up/Referrals: Malu Woo PA [Primary Care Provider] - See instructions Activity Restrictions/Add. Instructions Additional Instructions/Restrictions: Drink plenty of fluids. Take tylenol or ibuprofen for pain or fever. Take the medications as directed. Follow up with your regular doctor. GO TO THE ER FOR ANY WORSENING SYMPTOMS Don't start the oral steroids until tomorrow, since you had the shot here today. Clinical Impressions Clinical Impression: Influenza A, Acute viral syndrome, Otitis media Instructions Patient Instructions: Middle Ear Infection, DI for Influenza -- Adult Discharge ED Provider: Rafael Fry [facility] General Stated complaint: ear pain cough runny nose Time Seen by Provider: 03/20/22 17:14 History of Present Illness Provider Complaint: She states that for the past 2 days she has had sore throat, fever, chills, and malaise. Her daughter tested positive for influenza a today. She came in because she is having worsening left ear pain. Related Data Previous Rx's Medication Instructions Recorded fluticasone propionate 50 1 spray intranasal QDAY #9.9 mL 07/23/21 mcg/actuation nasal spray,suspension (Flonase Allergy Relief) prednisone 20 mg tablet 20 mg PO BID #10 tabs 07/23/21 cefdinir 300 mg capsule 300 mg PO BID #20 caps 07/28/21 methylprednisolone 4 mg tablets in 4 mg PO DIRECTED 6 days #21 07/28/21 a dose pack packets ondansetron 4 mg disintegrating 4 mg PO Q8HP PRN Nausea #20 tabs 07/28/21 tablet promethazine-DM 6.25 mg-15 mg/5 mL 5 ml PO Q6HP PRN Cough #240 mL 07/28/21 oral syrup amoxicillin 875 mg-potassium 1 tab PO BID #20 tabs 08/20/21 clavulanate 125 mg tablet mupirocin 2 % topical ointment 1 applicatio topical TID 7 days ##1 08/20/21 nitrofurantoin 100 mg PO BID 7 days #14 caps 09/20/21 monohydrate/macrocrystals 100 mg capsule phenazopyridine 200 mg tablet 200 pow PO TID #6 tabs 09/20/21 nitrofurantoin 100 mg PO BID 5 days #10 caps 02/02/22 monohydrate/macro
[2022-03-20 17:16] VITALS: BP 137/92; PULSE 102; RESP 18; TEMP 36.8; O2SAT 97; BMI 30.5
[2022-03-20 17:20] LABS: Adenovirus,PCR Not Detected (NotDetected); Bordetella Pertussis Not Detected (NotDetected); Chlamydophila Pneumoniae, PCR Not Detected (NotDetected); Coronavirus 19, PCR Not Detected (NotDetected); Coronavirus 229E Not Detected (NotDetected); Coronavirus NL63 Not Detected (NotDetected); Coronavirus OC43 Not Detected (NotDetected); Coronovirus HKU1,PCR Not Detected (NotDetected); Human Metapneumovirus Not Detected (NotDetected); Influenza A, PCR Not Detected (NotDetected); Influenza AH1, 2009 Not Detected (NotDetected); Influenza AH1, PCR Not Detected (NotDetected); Influenza AH3,PCR Not Detected (NotDetected); Influenza B, PCR Not Detected (NotDetected); Mycoplasma Pneumoniae, PCR Not Detected (NotDetected); Parainfluenza 1, PCR Not Detected (NotDetected); Parainfluenza 2, PCR Not Detected (NotDetected); Parainfluenza 3, PCR Not Detected (NotDetected); Parainfluenza 4, PCR Not Detected (NotDetected); Respiratory Syncytial Virus Not Detected (NotDetected); UTC Strep Screen (Rapid) Negative (Negative)
[2022-03-20 18:47] VITALS: BP 137/92; PULSE 102; RESP 18; TEMP 36.8
[2022-03-20 19:45] LABS: Rhinovirus/Enterovirus Detected (NotDetected)
== END 2022-03-20 18:48 | disposition home or self-care (01) ==
PROVIDERS: Emergency Provider Nurse Practitioner Family; PCP Physician Assistant
DX: H66.90 Otitis media, unspecified, unspecified ear (principal); J10.1 Influenza due to other identified influenza virus with other respiratory manifestations; B34.1 Enterovirus infection, unspecified
CPT/HCPCS: 87581; 87632; 87798; 87880; 96372; 99212; C9803; G0463; J0696; U0003; U0005

== ENCOUNTER 2022-04-25 21:51 | Emergency (ER) | payer OTHER, SELFPAY ==
--- NOTE | 2022-04-25 21:55 | HMH.EDGENADL ---
Discharge Plan Disposition Patient Disposition: Home, Self-Care Condition: Good Chief Complaint: Urogenital-Female Prescriptions Prescriptions: New cephalexin 500 mg capsule 500 mg PO BID 7 Days Qty: 14 0RF No Action prednisone 20 mg tablet 20 mg PO BID Qty: 10 0RF Rx Instructions: administer with food or milk fluticasone propionate [Flonase Allergy Relief] 50 mcg/actuation spray,suspension 1 spray INTRANASAL QDAY Qty: 9.9 0RF Rx Instructions: administer into each nostril promethazine-DM 120 ML syrup 5 ml PO Q6HP PRN (Reason: Cough) Qty: 240 0RF ondansetron 4 MG tablet,disintegrating 4 mg PO Q8HP PRN (Reason: Nausea) Qty: 20 0RF cefdinir 300 MG capsule 300 mg PO BID Qty: 20 0RF methylprednisolone 4 MG tablets,dose pack 4 mg PO DIRECTED 6 Days Qty: 21 0RF phenazopyridine 200 MG tablet 200 pow PO TID Qty: 6 0RF nitrofurantoin monohyd/m-cryst 100 MG capsule 100 mg PO BID 7 Days Qty: 14 0RF amoxicillin-pot clavulanate 1 EACH tablet 1 tab PO BID Qty: 20 0RF mupirocin 22 GM ointment 1 applicatio TP TID 7 Days Qty: 1 0RF nitrofurantoin monohyd/m-cryst [Macrobid] 100 mg capsule 100 mg PO BID 5 Days Qty: 10 0RF Rx Instructions: must administer with a meal/food phenazopyridine [Pyridium] 100 mg tablet 100 mg PO Q8H PRN (Reason: pain) Qty: 10 0RF phenazopyridine 200 mg Tablet 200 mg PO TID Qty: 6 0RF methylprednisolone 4 mg Tablets,Dose Pack 4 mg PO DIRECTED Qty: 21 0RF ondansetron 4 mg Tablet,Disintegrating 4 mg PO Q8H PRN (Reason: Nausea) Qty: 20 0RF cefdinir 300 mg capsule 300 mg PO BID Qty: 20 0RF amoxicillin [amoxicillin] 500 mg tablet 500 mg PO TID 10 Days Qty: 30 0RF [id number] [Bromfed DM] 2-30-10 mg/5 mL Syrup 5 ml PO Q6H PRN (Reason: Cough) Qty: 240 0RF methylprednisolone 4 mg Tablets,Dose Pack 4 mg PO DIRECTED Qty: 21 0RF oseltamivir [Tamiflu] 75 mg capsule 75 mg PO BID Qty: 10 0RF Referrals Follow up/Referrals: Malu Woo PA [Primary Care Provider] - See instructions Clinical Impressions Clinical Impression: UTI (urinary tract infection) Instructions Patient Instructions: DI for Urinary Tract Infection (UTI), Cephalexin Discharge ED Provider: Josh Ludwig General Adult HPI General Chief complaint: Urogenital-Female Stated complaint: possible UTI with blood Time Seen by Provider: 04/25/22 21:54 History of Present Illness HPI narrative: 26-year-old female, prior history of UTI, presents with dysuria and urinary frequency which started few hours ago. She noted it had light reddish color however no overt blood noticed. No history of kidney stone or prior kidney infection. She had amoxicillin left over from previous infection and took 1 before coming in. She does states she had some vomiting earlier, denies fever, chills, diarrhea abdominal pain or any other symptoms Related Data Previous Rx's Medication Instructions Recorded fluticasone propionate 50 1 spray intranasal QDAY #9.9 mL 07/23/21 mcg/actuation nasal spray,suspension (Flonase Allergy Relief) prednisone 20 mg tablet 20 mg PO BID #10 tabs 07/23/21 cefdinir 300 mg capsule 300 mg PO BID #20 caps 07/28/21 methylprednisolone 4 mg tablets in 4 mg PO DIRECTED 6 days #21 07/28/21 a dose pack packets ondansetron 4 mg disintegrating 4 mg PO Q8HP PRN Nausea #20 tabs 07/28/21 tablet promethazine-DM 6.25 mg-15 mg/5 mL 5 ml PO Q6HP PRN Cough #240 mL 07/28/21 oral syrup amoxicillin 875 mg-potassium 1 tab PO BID #20 tabs 08/20/21 clavulanate 125 mg tablet mupirocin 2 % topical ointment 1 applicatio topical TID 7 days ##1 08/20/21 nitrofurantoin 100 mg PO BID 7 days #14 caps 09/20/21 monohydrate/macrocrystals 100 mg capsule phenazopyridine 200 mg tablet 200 pow PO TID #6 tabs 09/20/21 nitrofurantoin 100 mg PO BID 5 days #10 caps 02/02/22 monohydrate/macro
[2022-04-25 21:59] VITALS: BP 107/89; PULSE 100; RESP 18; TEMP 36.6; O2SAT 100; BMI 30.5
[2022-04-25 22:12] LABS: Microscopic, Urine URINE MICROSCOPIC (MICROSCOPIC)
[2022-04-25 22:18] LABS: Appearance,Urine CLOUDY (Clear); Bilirubin,Urine Negative (Negative); Blood, Urine 3+ (Negative); Color,Urine YELLOW (Yellow); Glucose,Urine (UA) Negative (Negative); Ketones,Urine Negative (Negative); Leukocyte Esterase,Urine 2+ (Negative); Nitrate,Urine Negative (Negative); Protein,Urine 1+ (Negative); Specific Gravity, Urine >= 1.030 (1.005-1.030); Urobilinogen,Urine 0.2 EU/dl (0.2)
[2022-04-25 22:24] VITALS: BP 110/90; PULSE 89; RESP 18; TEMP 36.6; O2SAT 99
[2022-04-25 22:32] LABS: Bacteria,Urine Trace /lpf; RBC,Urine 20-50 #/hpf (0-3)
== END 2022-04-25 22:30 | disposition home or self-care (01) ==
PROVIDERS: Emergency Provider Emergency Medicine; PCP Physician Assistant
DX: N39.0 Urinary tract infection, site not specified (principal); F17.210 Nicotine dependence, cigarettes, uncomplicated; Z87.440 Personal history of urinary (tract) infections; F41.9 Anxiety disorder, unspecified
CPT/HCPCS: 81001; 87086; 87088; 87186; 99283; 99284

== ENCOUNTER 2022-05-26 12:47 | Emergency (ER) | payer OTHER, SELFPAY ==
[2022-05-26 12:48] VITALS: BP 131/89; PULSE 64; RESP 18; TEMP 37.1; O2SAT 98; BMI 31.4
--- NOTE | 2022-05-26 13:28 | EXP.UTC ---
Discharge Plan Disposition Patient Disposition: Home, Self-Care Condition: Good Prescriptions Prescriptions: New ondansetron 4 mg tablet,disintegrating 4 mg PO Q8H PRN (Reason: nausea and vomiting) Qty: 10 0RF Referrals Follow up/Referrals: Malu Woo PA [Primary Care Provider] - See instructions Activity Restrictions/Add. Instructions Additional Instructions/Restrictions: *Monitor Temp, Over the counter Motrin or Tylenol as directed/as needed Tylenol every 4 hours and Motrin every 6 hours (as long as your family doctor has told you that you can take it) for fever or pain. and straight to ER if unable to lower temp less than 101.0 after medication given *Warm salt water gargles may help to soothe the throat *Throat Lozenges? *Warm fluids like tea with honey may help to soothe the throat? *Sleep elevated *Humidifier/Vaporizer Drink extra fluids with and between meals. If you have difficulty drinking, try very small amounts of water or suck on ice chips. ? Avoid fruit juices, as these do not replace minerals and can actually increase diarrhea. ? Children and adults can use sports drinks to replenish electrolytes. Younger children and infants should use products formulated for children, like oral rehydration solutions. ? Eat food in small amounts and let your stomach recover. ? Get lots of rest. You may feel tired or weak. ? No greasy or fried foods for the next 24-48 hours BRAT diet Bananas Rice Apples and [place] ? Make sure to drink plenty of liquids ? Return if needed ? Straight to ER if any life threatening symptoms ? Zofran as prescribed ? Follow up with family doctor in the next 48-72 hours if no improvement or any worsening of symptoms Your throat swab was sent for culture. Those results are typically sent to your primary care. Be sure to follow up in 2-3 days with your family doctor/primary care physician if no improvement so they can review those result and treat if necessary. If you don?t have a primary care doctor, I recommend you get one but in the mean time, you will have to return to a walk in clinic Follow up IMMEDIATELY for new or worsening symptoms or no Noticeable improvement over the next 48-72 hours. 911 for difficulty breathing or swallowing Clinical Impressions Clinical Impression: Viral syndrome Stand Alone Forms Stand Alone Forms: Work/School Release Instructions Patient Instructions: DI for Viral Syndrome, DI for Vomiting -- Adult, DI for Fever (Symptom) -- Adult Discharge ED Provider: Malena Mcdonald [facility] [place] HPI General Stated complaint: Cough,vomitting,Headache Time Seen by Provider: 05/26/22 13:28 History of Present Illness Provider Complaint: Patient states that her daughter has the flu, states that started with body aches, chills, cough and this morning started with vomiting States that she was worried that she may have the flu cause of her symptoms and not feeling well Related Data Previous Rx's Medication Instructions Recorded ondansetron 4 mg disintegrating 4 mg PO Q8H PRN nausea and 05/26/22 tablet vomiting #10 tabs Allergies Allergy/AdvReac Type Severity Reaction Status Date / Time Sulfa (Sulfonamide Allergy Mild rash Verified 05/26/22 13:29 Antibiotics) [facility] Disclaimer: The information contained in this section may have been updated after the patient was seen, as this information can be updated by other users. Medical History Anxiety Back Pain Foot pain Social History Smoking Status: Current every day smoker tobacco type: cigarettes packs per day: 1 second hand exposure: Yes alcohol intake: never substance use type: denies use current occupational status: other Travel in the last 8 weeks: None housing: [facility]
[2022-05-26 13:31] LABS: UTC Influenza A Antigen Negative (Negative); UTC Influenza B Antigen Negative (Negative)
[2022-05-26 13:57] VITALS: BP 131/89; PULSE 64; RESP 20; TEMP 37.2; O2SAT 98
== END 2022-05-26 13:56 | disposition home or self-care (01) ==
PROVIDERS: Emergency Provider Nurse Practitioner; PCP Physician Assistant
DX: B34.9 Viral infection, unspecified (principal); R05.9 Cough, unspecified; R11.10 Vomiting, unspecified; R51.9 Headache, unspecified
CPT/HCPCS: 87804; 99212; 99213; C9803; G0463; U0003; U0005

== ENCOUNTER 2022-06-12 16:10 | Emergency (ER) | payer OTHER, SELFPAY ==
[2022-06-12 16:20] VITALS: BP 136/89; PULSE 78; RESP 20; TEMP 36.9; O2SAT 98; BMI 30.5
--- NOTE | 2022-06-12 16:32 | EXP.UTC ---
Discharge Plan Disposition Patient Disposition: Home, Self-Care Condition: Good Prescriptions Prescriptions: New azithromycin [Zithromax] 250 mg tablet 250 mg PO UD DOSE PK Qty: 6 0RF Rx Instructions: Take two (2) tablets today, then one (1) tablet days #2 thru #5 benzonatate [benzonatate] 100 mg capsule 100 mg PO TIDP PRN (Reason: Cough) Qty: 30 0RF methylprednisolone 4 mg Tablets,Dose Pack 4 mg PO DIRECTED Qty: 21 0RF Referrals Follow up/Referrals: Malu Woo PA [Primary Care Provider] - See instructions Activity Restrictions/Add. Instructions Additional Instructions/Restrictions: Drink plenty of fluids. Take tylenol or ibuprofen for pain or fever. Take the medications as directed. Follow up with your regular doctor. GO TO THE ER FOR ANY WORSENING SYMPTOMS Clinical Impressions Clinical Impression: Bronchitis, Sinusitis Instructions Patient Instructions: Sinusitis, DI for Sinusitis, DI for Acute Bronchitis Discharge ED Provider: Rafael Fry [facility] General Stated complaint: Cough congestion Time Seen by Provider: 06/12/22 16:32 History of Present Illness Provider Complaint: She c/o cough, chest congestion, malaise and scratchy sore throat for the past 4 days. Related Data Previous Rx's Medication Instructions Recorded azithromycin 250 mg tablet 250 mg PO UD DOSE PK #6 tabs 06/12/22 (Zithromax) benzonatate 100 mg capsule 100 mg PO TIDP PRN Cough #30 caps 06/12/22 methylprednisolone 4 mg tablets in 4 mg PO DIRECTED #21 tabs 06/12/22 a dose pack Allergies Allergy/AdvReac Type Severity Reaction Status Date / Time Sulfa (Sulfonamide Allergy Mild rash Verified 06/12/22 16:35 Antibiotics) [facility] Disclaimer: The information contained in this section may have been updated after the patient was seen, as this information can be updated by other users. Medical History Anxiety Back Pain Foot pain Social History Smoking Status: Current every day smoker tobacco type: cigarettes packs per day: 1 second hand exposure: Yes alcohol intake: never substance use type: denies use current occupational status: other Travel in the last 8 weeks: None housing: house ROS Obtained: Yes All systems reviewed & no additional complaints except as documented Constitutional Constitutional: Reports poor appetite Eyes Eyes: Reports system reviewed and no additional complaints, except as documented ENT Ears, Nose, Mouth, and Throat: Reports as per HPI Cardiovascular Cardiovascular: Reports system reviewed and no additional complaints, except as documented and Denies chest pain Respiratory Respiratory: Denies shortness of breath, Denies chest congestion, Reports cough, Denies stridor and Denies wheezing Gastrointestinal Gastrointestingal: Reports system reviewed and no additional complaints, except as documented; Denies abdominal pain, diarrhea or vomiting Musculoskeletal Musculoskeletal: Reports system reviewed and no additional complaints, except as documented and Denies arthralgias Integumentary/Breasts Skin/Breast: Reports system reviewed and no additional complaints, except as documented and Denies rash Neurologic Neurologic: Denies paresthesias Allergic/Immunologic Allergic/Immunologic: Denies wheezing Physical Exam General General appearance: alert and in no apparent distress Eye Eye exam: Present normal appearance, PERRL and EOMI ENT ENT exam: Present mucous membranes moist and normal external ear exam Expanded ENT Exam External ear exam: Present normal external inspection TM/Canal exam: Bilateral TM: erythema and bulging Nose exam: Absent sinus tenderness Nasal speculum exam: Bilateral: normal Mouth exam: Present normal external inspection; Absent drooling Teeth exam: Present normal inspection Throat exam: Present tonsill
[2022-06-12 17:06] VITALS: BP 136/89; PULSE 78; RESP 20; TEMP 36.9; O2SAT 99
== END 2022-06-12 17:06 | disposition home or self-care (01) ==
PROVIDERS: Emergency Provider Nurse Practitioner Family; PCP Physician Assistant
DX: J40 Bronchitis, not specified as acute or chronic (principal); J32.9 Chronic sinusitis, unspecified
CPT/HCPCS: 99212; 99214; G0463

== ENCOUNTER 2022-06-16 17:06 | Emergency (ER) | payer OTHER, SELFPAY ==
[2022-06-16 17:30] VITALS: BP 133/88; PULSE 74; RESP 20; TEMP 36.6; O2SAT 100; BMI 30.5
[2022-06-16 17:43] LABS: Apearance,Urine Clear (Clear); Color,Urine Orange (Yellow)
[2022-06-16 17:44] LABS: Bilirubin,Urine Negative (Negative); Blood, Urine Trace (Negative); Glucose,Urine (UA) 1+ (Negative); Ketones,Urine n (Negative); PH,Urine 6.5 (5.0-8.5); Protein,Urine 1+ (Negative); UTC Leukocyte Esterase,Urine 3+ (Negative); UTC Nitrate,Urine Positive (Negative); Urobilinogen,Urine 1 EU/dl (0.2)
--- NOTE | 2022-06-16 17:56 | EXP.UTC ---
Discharge Plan Disposition Patient Disposition: Home, Self-Care Condition: Good Prescriptions Prescriptions: New cefdinir 300 mg capsule 300 mg PO BID Qty: 20 0RF ondansetron 4 mg tablet,disintegrating 4 mg PO Q8H PRN (Reason: nausea and vomiting) Qty: 10 0RF phenazopyridine [Pyridium] 200 mg tablet 200 mg PO Q8H 2 Days Qty: 6 0RF Referrals Follow up/Referrals: Malu Woo PA [Primary Care Provider] - See instructions Activity Restrictions/Add. Instructions Additional Instructions/Restrictions: *Increase fluids. Water not Soda or Tea *Start antibiotic immediately and be sure to take as ordered for the FULL length of time although you should start to see improvement over the next 48 hours *Pyridium as needed Remember this medication will turn your urine . This is normal but it will stain what ever it gets on *You should not use Pyridium for more than 48 hours. If so , follow up with your primary physician to review urine culture and ensure that antibiotic is adequate for infection *Be SURE to follow up anytime for new or worsening symptoms with your family doctor. AND in 48 hours for urine culture results with your family doctor, if you do not have a doctor then you may call back to the [facility] for urine culture results and further treatment. We do recommend that you choose and establish care with a Primary Care Physician. ?AND follow up with them ?in 10-14 days to repeat UA to ensure infection is resolved and blood no longer present *Be sure to let your PCP know that we sent urine cultures from the [facility] so they can follow up to ensure that you area the on the correct antibiotic Call your doctor office and make appointment for 48 hours (2 days from today) ?to follow up and get the results of your urine culture and further treatment Clinical Impressions Clinical Impression: UTI (urinary tract infection) Stand Alone Forms Stand Alone Forms: Work/School Release Instructions Patient Instructions: DI for Urinary Tract Infection (UTI), Urinary Tract Infection, Ondansetron Discharge ED Provider: Malena Mcdonald [facility] [place] General Stated complaint: frequency of urination,discomfort Mode of Arrival: Ambulatory Source of Information: Patient Limitations: No Limitations Time Seen by Provider: 06/16/22 17:56 Description of Symptoms (Recalled from Triage Doc. by RN): constantly feeling like I have to pee, nausea HEENT Symptoms (Recalled from RN notes): No Resp Symptoms (Recalled from RN notes): No Skin Symptoms (Recalled from RN notes): No MS Symptoms (Recalled from RN notes): No Functional Status (Recalled from RN notes): n/a History of Present Illness Provider Complaint: Patient states that she has been having burning with urination and feeling like she has to go all the time States that she took an OTC medication for UTI but it made her sick and she vomited x 1 but not vomited since States that she hasnt had any fever, chills, body aches or abd pain but this evening she was still having some burning so she came in Related Data Previous Rx's Medication Instructions Recorded cefdinir 300 mg capsule 300 mg PO BID #20 caps 06/16/22 ondansetron 4 mg disintegrating 4 mg PO Q8H PRN nausea and 06/16/22 tablet vomiting #10 tabs phenazopyridine 200 mg tablet 200 mg PO Q8H pain 2 days #6 tabs 06/16/22 (Pyridium) Allergies Allergy/AdvReac Type Severity Reaction Status Date / Time Sulfa (Sulfonamide Allergy Mild rash Verified 06/16/22 17:42 Antibiotics) Worker's Comp Is this a Worker's Comp case?: No [facility] Disclaimer: The information contained in this section may have been updated after the patient was seen, as this information can be updated by other users. Medical History Anxiety Back Pain Foot pain Social History Smoking Status: Current every day smoker tobacco type: cigarettes packs per day
[2022-06-16 18:32] VITALS: BP 133/88; PULSE 74; RESP 20; TEMP 36.6; O2SAT 100
== END 2022-06-16 18:31 | disposition home or self-care (01) ==
PROVIDERS: Emergency Provider Nurse Practitioner; PCP Physician Assistant
DX: N39.0 Urinary tract infection, site not specified (principal); B96.20 Unspecified Escherichia coli [E. coli] as the cause of diseases classified elsewhere; R11.0 Nausea
CPT/HCPCS: 81003; 87086; 87088; 87186; 99212; 99214; G0463

== ENCOUNTER 2022-08-04 16:08 | Emergency (ER) | payer OTHER, SELFPAY ==
[2022-08-04 17:51] VITALS: BP 129/86; PULSE 86; RESP 20; TEMP 36.6; O2SAT 100; BMI 22.7
--- NOTE | 2022-08-04 18:54 | EXP.UTC ---
Discharge Plan Disposition Patient Disposition: Home, Self-Care Condition: Good Prescriptions Prescriptions: New amoxicillin 875 mg tablet 875 mg PO BID Qty: 20 0RF benzonatate 100 mg capsule 100 mg PO TID PRN (Reason: cough) Qty: 30 0RF fluticasone propionate [Flonase Allergy Relief] 50 mcg/actuation spray,suspension 1 - 2 spray intranasal DAILY Qty: 16 0RF Rx Instructions: administer into each nostril daily Referrals Follow up/Referrals: Malu Woo PA [Primary Care Provider] - See instructions Activity Restrictions/Add. Instructions Additional Instructions/Restrictions: *Monitor Temp, Over the counter Motrin or Tylenol as directed/as needed Tylenol every 4 hours and Motrin every 6 hours (as long as your family doctor has told you that you can take it) for fever or pain. and straight to ER if unable to lower temp less than 101.0 after medication given *Warm salt water gargles may help to soothe the throat *Throat Lozenges? *Warm fluids like tea with honey may help to soothe the throat? *Sleep elevated *Humidifier/Vaporizer *Flonase 2 sprays in each nostril daily but be aware that it may take 2-3 days before you notice improvement Follow up IMMEDIATELY for new or worsening symptoms or no Noticeable improvement over the next 48-72 hours. 911 for difficulty breathing or swallowing Clinical Impressions Clinical Impression: Otitis media Instructions Patient Instructions: Middle Ear Infection, Middle Ear Infections (Alternative Therapy) Discharge ED Provider: Malena Mcdonald [facility] General Stated complaint: ear pain Mode of Arrival: Ambulatory Source of Information: Patient Limitations: No Limitations Time Seen by Provider: 08/04/22 18:54 Description of Symptoms (Recalled from Triage Doc. by RN): pt c/o a cough and R ear ache x2 days. HEENT Symptoms (Recalled from RN notes): Yes Resp Symptoms (Recalled from RN notes): Yes Skin Symptoms (Recalled from RN notes): No MS Symptoms (Recalled from RN notes): No Functional Status (Recalled from RN notes): wnl History of Present Illness Provider Complaint: Patient states that she has been having cough and pain in her right ear that has continued to get worse over the last couple of days Statse that today her ear was hurting worse so she came in Related Data Previous Rx's Medication Instructions Recorded amoxicillin 875 mg tablet 875 mg PO BID #20 tabs 08/04/22 benzonatate 100 mg capsule 100 mg PO TID PRN cough #30 caps 08/04/22 fluticasone propionate 50 1 - 2 spray intranasal DAILY #16 08/04/22 mcg/actuation nasal grams spray,suspension (Flonase Allergy Relief) Allergies Allergy/AdvReac Type Severity Reaction Status Date / Time Sulfa (Sulfonamide Allergy Mild rash Verified 06/16/22 17:42 Antibiotics) Worker's Comp Is this a Worker's Comp case?: No [facility] Disclaimer: The information contained in this section may have been updated after the patient was seen, as this information can be updated by other users. Medical History Anxiety Back Pain Foot pain Social History Smoking Status: Current every day smoker tobacco type: cigarettes packs per day: 1 second hand exposure: Yes alcohol intake: never substance use type: denies use current occupational status: other Travel in the last 8 weeks: None housing: house ROS Obtained: Yes All systems reviewed & no additional complaints except as documented and Yes Systems reviewed as appropriate & no additional complaints except as documented Constitutional Constitutional: Reports system reviewed and no additional complaints, except as documented and Reports as per HPI ENT Ears, Nose, Mouth, and Throat: Reports system reviewed and no additional complaints, except as documented, Reports as per HPI and Reports otalgia Cardiovascular
[2022-08-04 19:13] VITALS: BP 129/86; PULSE 86; RESP 20; TEMP 36.6
== END 2022-08-04 19:14 | disposition home or self-care (01) ==
PROVIDERS: Emergency Provider Nurse Practitioner; PCP Physician Assistant
DX: H66.91 Otitis media, unspecified, right ear (principal); F17.210 Nicotine dependence, cigarettes, uncomplicated
CPT/HCPCS: 99212; 99214; G0463

== ENCOUNTER 2022-08-17 18:52 | Emergency (ER) | payer OTHER, SELFPAY ==
[2022-08-17 20:15] VITALS: BP 118/78; PULSE 78; RESP 21; TEMP 36.6; O2SAT 100; BMI 31.7
--- NOTE | 2022-08-17 20:32 | EXP.UTC ---
Discharge Plan Disposition Patient Disposition: Home, Self-Care Condition: Good Prescriptions Prescriptions: New ondansetron 4 mg tablet,disintegrating 4 mg PO Q8H PRN (Reason: nausea and vomiting) Qty: 10 0RF No Action amoxicillin 875 mg tablet 875 mg PO BID Qty: 20 0RF benzonatate 100 mg capsule 100 mg PO TID PRN (Reason: cough) Qty: 30 0RF fluticasone propionate [Flonase Allergy Relief] 50 mcg/actuation spray,suspension 1 - 2 spray intranasal DAILY Qty: 16 0RF Rx Instructions: administer into each nostril daily Referrals Follow up/Referrals: Malu Woo PA [Primary Care Provider] - See instructions Activity Restrictions/Add. Instructions Additional Instructions/Restrictions: Drink extra fluids with and between meals. If you have difficulty drinking, try very small amounts of water or suck on ice chips. ? Avoid fruit juices, as these do not replace minerals and can actually increase diarrhea. ? Children and adults can use sports drinks to replenish electrolytes. Younger children and infants should use products formulated for children, like oral rehydration solutions. ? Eat food in small amounts and let your stomach recover. ? Get lots of rest. You may feel tired or weak. ? No greasy or fried foods for the next 24-48 hours BRAT diet Bananas Rice Apples and [place] ? Make sure to drink plenty of liquids ? Return if needed ? Straight to ER if any life threatening symptoms ? Zofran as prescribed ? You was given an outpatient order for diarrhea panel, please collect specimen and bring back to outpatient lab then call back to the [facility] or follow up with family doctor for results ? Follow up with family doctor in the next 48-72 hours if no improvement or any worsening of symptoms Clinical Impressions Clinical Impression: Nausea vomiting and diarrhea Stand Alone Forms Stand Alone Forms: Work/School Release Instructions Patient Instructions: Nausea and Vomiting-Adult, Diarrhea Discharge ED Provider: Malena Mcdonald [facility] [place] HPI General Stated complaint: Diarrhea,vomitting Mode of Arrival: Ambulatory Source of Information: Patient Limitations: No Limitations Time Seen by Provider: 08/17/22 20:32 Description of Symptoms (Recalled from Triage Doc. by RN): PATIENT C/O DIARRHEA, STOMACH ACHE, AND VOMITING SINCE YESTERDAY HEENT Symptoms (Recalled from RN notes): No Resp Symptoms (Recalled from RN notes): No Skin Symptoms (Recalled from RN notes): No MS Symptoms (Recalled from RN notes): No Functional Status (Recalled from RN notes): WNL History of Present Illness Provider Complaint: Patient states that she thinks she may have the stomach bug States that she has been having N/V/D since yesterday States that she wasnt able to go to work today due to the diarrhea so this evening when she was still having upset stomach she came in Related Data Previous Rx's Medication Instructions Recorded amoxicillin 875 mg tablet 875 mg PO BID #20 tabs 08/04/22 benzonatate 100 mg capsule 100 mg PO TID PRN cough #30 caps 08/04/22 fluticasone propionate 50 1 - 2 spray intranasal DAILY #16 08/04/22 mcg/actuation nasal grams spray,suspension (Flonase Allergy Relief) ondansetron 4 mg disintegrating 4 mg PO Q8H PRN nausea and 08/17/22 tablet vomiting #10 tabs Allergies Allergy/AdvReac Type Severity Reaction Status Date / Time Sulfa (Sulfonamide Allergy Mild rash Verified 06/16/22 17:42 Antibiotics) Worker's Comp Is this a Worker's Comp case?: No [facility] Disclaimer: The information contained in this section may have been updated after the patient was seen, as this information can be updated by other users. Medical History Anxiety Back Pain Foot pain Social History Smoking Status: Current every day sm
[2022-08-17 20:38] VITALS: BP 118/78; PULSE 78; RESP 21; TEMP 36.6; O2SAT 100
== END 2022-08-17 20:40 | disposition home or self-care (01) ==
PROVIDERS: Emergency Provider Nurse Practitioner; PCP Physician Assistant
DX: R11.2 Nausea with vomiting, unspecified (principal); R19.7 Diarrhea, unspecified; F17.210 Nicotine dependence, cigarettes, uncomplicated
CPT/HCPCS: 99212; 99214; G0463

== ENCOUNTER 2022-09-28 18:06 | Emergency (ER) | payer OTHER, SELFPAY ==
[2022-09-28 18:10] VITALS: BP 132/90; PULSE 102; RESP 20; TEMP 37; O2SAT 99; BMI 35.3
--- NOTE | 2022-09-28 18:43 | EXP.UTC ---
Discharge Plan Disposition Patient Disposition: Home, Self-Care Condition: Good Prescriptions Prescriptions: New amoxicillin 500 mg tablet 500 mg PO TID 7 Days Qty: 21 0RF Referrals Follow up/Referrals: Malu Woo PA [Primary Care Provider] - See instructions Activity Restrictions/Add. Instructions Additional Instructions/Restrictions: *Monitor Temp, Over the counter Motrin or Tylenol as directed/as needed Tylenol every 4 hours and Motrin every 6 hours (as long as your family doctor has told you that you can take it) for fever or pain. and straight to ER if unable to lower temp less than 101.0 after medication given *Warm salt water gargles may help to soothe the throat and help with dental pain Take medication as prescribed *Humidifier/Vaporizer *Flonase 2 sprays in each nostril daily but be aware that it may take 2-3 days before you notice improvement Follow up with Dentist as scheduled Follow up IMMEDIATELY for new or worsening symptoms or no Noticeable improvement over the next 48-72 hours. 911 for difficulty breathing or swallowing Clinical Impressions Clinical Impression: Otitis media Instructions Patient Instructions: Middle Ear Infection, Ear Infections (Alternative Therapy) Discharge ED Provider: Malena Mcdonald [facility] [place] HPI General Stated complaint: right ear pain Mode of Arrival: Ambulatory Source of Information: Patient Limitations: No Limitations Time Seen by Provider: 09/28/22 18:43 Description of Symptoms (Recalled from Triage Doc. by RN): PATIENT C/O RIGHT EAR PAIN X 2 DAYS. SHE ALSO STATES SHE BELIEVES SHE HAS AND INFECTED TOOTH ON RIGHT SIDE HEENT Symptoms (Recalled from RN notes): Yes Resp Symptoms (Recalled from RN notes): No Skin Symptoms (Recalled from RN notes): No MS Symptoms (Recalled from RN notes): No Functional Status (Recalled from RN notes): WNL History of Present Illness Provider Complaint: Patient states that she has been having tooth ache in decayed tooth on right side for a couple weeks on and off and now having pain in her right ear States that she is unsure if they are connected States that pain in her ear has been throbbing and sharp at times and feels like it is full so today when she was still having pain she came in to get checked States that she has appointment with Dentist on Related Data Previous Rx's Medication Instructions Recorded amoxicillin 500 mg tablet 500 mg PO TID 7 days #21 tabs 09/28/22 Allergies Allergy/AdvReac Type Severity Reaction Status Date / Time Sulfa (Sulfonamide Allergy Mild rash Verified 06/16/22 17:42 Antibiotics) Worker's Comp Is this a Worker's Comp case?: No [facility] Disclaimer: The information contained in this section may have been updated after the patient was seen, as this information can be updated by other users. Medical History Anxiety Back Pain Foot pain Social History Smoking Status: Current every day smoker tobacco type: cigarettes packs per day: 1 second hand exposure: Yes alcohol intake: never substance use type: denies use current occupational status: other Travel in the last 8 weeks: None housing: house ROS Obtained: Yes All systems reviewed & no additional complaints except as documented and Yes Systems reviewed as appropriate & no additional complaints except as documented Constitutional Constitutional: Reports system reviewed and no additional complaints, except as documented and Reports as per HPI ENT Ears, Nose, Mouth, and Throat: Reports system reviewed and no additional complaints, except as documented, Reports as per HPI, Reports dental pain and Reports otalgia Cardiovascular Cardiovascular: Reports system reviewed and no additional complaints, except as documented and Reports as per HPI Respiratory Respiratory: Reports system reviewed and no additional complaints
[2022-09-28 18:50] VITALS: BP 132/90; PULSE 102; RESP 20; TEMP 37; O2SAT 99
== END 2022-09-28 18:54 | disposition home or self-care (01) ==
PROVIDERS: Emergency Provider Nurse Practitioner; PCP Physician Assistant
DX: H66.91 Otitis media, unspecified, right ear (principal); F17.210 Nicotine dependence, cigarettes, uncomplicated; F41.9 Anxiety disorder, unspecified
CPT/HCPCS: 99212; 99214; G0463

== ENCOUNTER 2022-10-12 15:22 | Emergency (ER) | payer OTHER, SELFPAY ==
[2022-10-12 15:40] VITALS: BP 141/79; PULSE 80; RESP 18; TEMP 37.1; O2SAT 100; BMI 32.1
[2022-10-12 15:45] LABS: Apearance,Urine Cloudy (Clear); Bilirubin,Urine 2+ (Negative); Blood, Urine Trace (Negative); Color,Urine Red (Yellow); Glucose,Urine (UA) 250 (Negative); Ketones,Urine 2+ (Negative); Protein,Urine 2+ (Negative); Specific Gravity, Urine 1.005 (1.005-1.030); UTC Leukocyte Esterase,Urine 3+ (Negative); UTC Nitrate,Urine Positive (Negative); Urobilinogen,Urine >=8 EU/dl (0.2)
--- NOTE | 2022-10-12 15:55 | EXP.UTC ---
Discharge Plan Disposition Patient Disposition: Home, Self-Care Condition: Good Prescriptions Prescriptions: New phenazopyridine [Pyridium] 200 mg tablet 200 mg PO Q8H 2 Days Qty: 6 0RF cefdinir 300 mg capsule 300 mg PO BID Qty: 20 0RF Referrals Follow up/Referrals: Malu Woo PA [Primary Care Provider] - See instructions Fransisco Romero MD [Referring] - See instructions Activity Restrictions/Add. Instructions Additional Instructions/Restrictions: *Increase fluids. Water not Soda or Tea *Start antibiotic immediately and be sure to take as ordered for the FULL length of time although you should start to see improvement over the next 48 hours *Pyridium as needed Remember this medication will turn your urine . This is normal but it will stain what ever it gets on *You should not use Pyridium for more than 48 hours. If so , follow up with your primary physician to review urine culture and ensure that antibiotic is adequate for infection *Be SURE to follow up anytime for new or worsening symptoms with your family doctor. AND in 48 hours for urine culture results with your family doctor, if you do not have a doctor then you may call back to the [facility] for urine culture results and further treatment. We do recommend that you choose and establish care with a Primary Care Physician. ?AND follow up with them ?in 10-14 days to repeat UA to ensure infection is resolved and blood no longer present *Be sure to let your PCP know that we sent urine cultures from the [facility] so they can follow up to ensure that you area the on the correct antibiotic Call your doctor office and make appointment for 48 hours (2 days from today) ?to follow up and get the results of your urine culture and further treatment Clinical Impressions Clinical Impression: UTI (urinary tract infection) Instructions Patient Instructions: DI for Urinary Tract Infection (UTI) Discharge ED Provider: Malena Mcdonald [facility] [place] HPI General Stated complaint: possible uti Time Seen by Provider: 10/12/22 15:45 History of Present Illness Provider Complaint: Patient states that she has been getting UTI on and off for the last little bit States that she started again with burning with urination, urgency and frequency States that she took an AZO but it hasnt helped much Related Data Previous Rx's Medication Instructions Recorded cefdinir 300 mg capsule 300 mg PO BID #20 caps 10/12/22 phenazopyridine 200 mg tablet 200 mg PO Q8H pain 2 days #6 tabs 10/12/22 (Pyridium) Allergies Allergy/AdvReac Type Severity Reaction Status Date / Time Sulfa (Sulfonamide Allergy Mild rash Verified 06/16/22 17:42 Antibiotics) [facility] Disclaimer: The information contained in this section may have been updated after the patient was seen, as this information can be updated by other users. Medical History Anxiety Back Pain Foot pain Social History Smoking Status: Current every day smoker tobacco type: cigarettes packs per day: 1 second hand exposure: Yes alcohol intake: never substance use type: denies use current occupational status: other Travel in the last 8 weeks: None housing: house ROS Obtained: Yes All systems reviewed & no additional complaints except as documented and Yes Systems reviewed as appropriate & no additional complaints except as documented Constitutional Constitutional: Reports system reviewed and no additional complaints, except as documented, Reports as per HPI, Denies body ache, Denies chills and Denies fever(s) ENT Ears, Nose, Mouth, and Throat: Reports system reviewed and no additional complaints, except as documented and Reports as per HPI Cardiovascular Cardiovascular: Reports system reviewed and no additional complaints, except as documented and Reports as per HPI Respiratory Respiratory: Reports system revie
[2022-10-12 16:11] VITALS: BP 141/79; PULSE 80; RESP 18; TEMP 37.1; O2SAT 100
== END 2022-10-12 16:13 | disposition home or self-care (01) ==
PROVIDERS: Emergency Provider Nurse Practitioner; PCP Physician Assistant
DX: N39.0 Urinary tract infection, site not specified (principal); B96.89 Other specified bacterial agents as the cause of diseases classified elsewhere; F17.210 Nicotine dependence, cigarettes, uncomplicated; F41.9 Anxiety disorder, unspecified
CPT/HCPCS: 81003; 87086; 87088; 87186; 99212; 99214; G0463

== ENCOUNTER → 2022-12-01 12:00 | Outpatient (CLI) | payer OTHER, SELFPAY ==
[2022-12-01 15:10] LABS: HCG,Quantitative 44461 mIU/ml (0-5.42)
[2022-12-02 13:25] LABS: Progesterone 9.3 ng/mL (.)
== END ==
PROVIDERS: PCP Physician Assistant; Visit Provider Obstetrics & Gynecology
DX: N92.6 Irregular menstruation, unspecified (principal); Z32.00 Encounter for pregnancy test, result unknown
CPT/HCPCS: 36415; 84144; 84702

== ENCOUNTER → 2022-12-08 13:36 | Outpatient (CLI) | payer OTHER, SELFPAY ==
--- NOTE | 2022-12-08 | US_ITS ---
PROCEDURE: US OB <= 14 WEEKS FETUS CLINICAL INDICATION: Dates, early . COMPARISON: No exams were available for comparison FINDINGS: Transvaginal sonographic images of the pelvis were obtained. From her last menstrual period she is 9weeks 6days. An intrauterine gestational sac is present with a pole with a crown-rump length of 2.81cm correlating to gestational age of 9weeks 5days. heart tones are absent. Doppler also confirms this. Yolk sac is noted. The yolk sac measures 6.2mm. The fetus appears to have a cystic hygroma. There is a cystic area around the skull. The right ovary is seen and appears normal. It measures 2.4 cm x 1.8 cm x 2.4 cm. The left ovary is seen and appears normal. It measures 1.6 cm by 2.4 cm x 1.5 cm. There is no fluid in the cul-de-sac. IMPRESSION: 1. Nonviable fetus within the uterine cavity. heart tones and Doppler is absent. 2. Fetus appears to have a cystic hygroma or possibly hydrops. 3. The size of the fetus correlates with her last menstrual period. 4. Both ovaries are seen and appear normal. 5. Physician was notified. Dictated by: Rinku Vallejo MD 12/09/2022 17:38 Rinku Vallejo MD in OV 12/09/2022 17:38
[2022-12-09 11:50] LABS: Basophils % 0.4 % (0.1-2.0); Eosinophils # 0.1 K/mm3 (0.0-0.4); Eosinophils % 0.9 % (0.1-12.0); Hematocrit 40.8 % (37.0-47.0); Hemoglobin 13.7 g/dL (12.2-16.2); Lymphocytes % 22.7 % (10-50); Mean Corpuscular HGB Conc 33.7 g/dL (31.8-35.4); Mean Corpuscular Hemoglobin 29.6 pg (27.0-31.2); Monocytes # 0.3 K/mm3 (0.1-1.0); Monocytes % 2.9 % (1.7-9.3); Neutrophils # 6.3 K/mm3 (1.8-7.8); Neutrophils % 73.1 % (37.0-80.0); Platelet Count 170 K/mm3 (142-424); Red Blood Count 4.64 M/mm3 (4.20-5.40); Red Cell Distribution Width 13.2 % (11.5-17.5); White Blood Count 8.6 K/mm3 (4.8-10.8)
[2022-12-09 13:48] LABS: Alanine Aminotransferase 25 U/L (12-78); Albumin Level 4.3 g/dl (3.5-5.0); Albumin/Globulin Ratio 1.7 (1.1-1.8); Alkaline Phosphatase 77 U/L (38-126); Anion Gap 14.1 mEq/L (5-15); Aspartate Amino Transferase 25 U/L (14-36); Bilirubin,Total 0.5 mg/dl (0.2-1.3); Blood Urea Nitrogen 6 mg/dl (7-17); Carbon Dioxide 23 mmol/L (22.0-30.0); Chloride 105 mmol/L (98-107); Estimated Glomerular Filt Rate 118 ml/min (>60); GFR (African American) 143 ML/MIN (>60); Globulin 2.6 g/dL (1.3-3.2); Glucose 102 mg/dl (74-100); Potassium 4.1 mmoL/L (3.5-5.1); Sodium 138 mmol/L (136-145); Total Protein,Serum 6.9 g/dl (6.3-8.2)
== END ==
PROVIDERS: Obstetrics & Gynecology; PCP Physician Assistant; Visit Provider Obstetrics & Gynecology
DX: O02.1 Missed abortion (principal)
CPT/HCPCS: 36415; 76801; 80053; 85025; 86850

== ENCOUNTER 2022-12-11 06:02 | Day surgery (SDC) | payer OTHER, SELFPAY ==
[2022-12-09 13:39] VITALS: BMI 31.3
[2022-12-11] VITALS (11 sets, daily range): BP systolic 105–137; BP diastolic 48–90; PULSE 59–75; RESP 16–18; TEMP 36.3–43; O2SAT 96–100
--- NOTE | 2022-12-11 06:57 | P.PNANES_ITS ---
[facility] Disclaimer: The information contained in this section may have been updated after the patient was seen, as this information can be updated by other users. Medical History Anxiety Back Pain Foot pain History of gastroesophageal reflux (GERD) Urinary tract infection Surgical History No significant past surgical history Family History Other Asthma Cancer Hypertension Social History (Updated 12/11/22 @ 06:36 by Jojo Plummer RN) Smoking Status: Current every day smoker tobacco type: cigarettes packs per day: 1 and e-cigarettes second hand exposure: Yes alcohol intake: never substance use type: denies use current occupational status: employed Travel in the last 8 weeks: None housing: house [facility] Anesthesia Checklist Patient Identification Patient Identification: Arm Band and Verbal (Name & ) Structural Data Admitted From: Home Planned Operative Procedure/s: Suction D&C Consent for Planned Operative Procedure(s) Verified: Yes Verified Documents: Surgical Consent NPO Status Verified Time NPO: 00:00 Additional verifications Anesthesia Reactions: No Hx Blood Transfusions: No Blood Transfusion Reaction: No Airway Assessment Mallampati Score:: Class II C-Spine Mobility Assessed: Yes TMJ Mobility Assessed: Yes Dentition: Good Dentition Neurological Assessment Level of Consciousness: Awake and Alert Anesthesia Plan Anesthesia Risk discussed: Yes ASA Class: I Anesthesia Type: General
--- NOTE | 2022-12-11 07:08 | SUR.PREOP ---
Spoke with Dr. Newby and verified does not want another HCG test performed.
--- NOTE | 2022-12-11 08:17 | EXP.ANES.I ---
[facility] Anesthesia Record Part I Anesthesia Record I Intake, IV Amount: 400 Hydration: Adequate Estimated blood loss (mL): 20 Urine output (mL): 0 Blood Products used (#): none Blood Pressure: 136/90 SaO2: 98 Pulse Rate: 65 Airway Patency: Patent Respiratory Rate: 16 Temperature: 99.2 F Patient is:: Drowsy and Stable Stable to PACU at:: 08:15
--- NOTE | 2022-12-11 08:50 | EXP.OP.NOTE ---
Date of procedure: 12/11/22 Pre-op Diagnosis:: 1. 9 weeks spontaneous 2. Desires surgical management 3. Rh- Post-op Diagnosis:: 1. 9 weeks spontaneous 2. Desires surgical management 3. Rh- Procedure performed:: Dilation and suction curettage Surgeon:: Ila Newby DO [employer] DIRECTOR:: Dung Juarez Anesthesia: GETA Estimated blood loss (mL): 70 Clinical Note:: UOP: 200mL Operative findings:: Normal-appearing external genitalia. Closed cervical os without bleeding. Operative note:: Poornima Yip is a 27-year-old -0-1-1 who presented with a 9-week spontaneous . Expectant, medical, and surgical management were explained to the patient and she elected to undergo surgical management. She was consented for suction D&C. Risk, benefits, and alternatives were reviewed. Risk including but not limited to uterine perforation, bleeding, and infection were discussed. Medications: Doxycycline 200 mg and RhoGAM The patient was taken back to the operating room where anesthesia was administered. She was placed in the dorsolithotomy position with yellowfin stirrups and sterilely prepped and draped with Betadine in the usual fashion. In and out catheter was used to drain her bladder. Weighted speculum and a right angle retractor was used to visualize the cervix. A single-tooth tenaculum applied to the anterior lip cervix. Perez dilators were used to dilate the cervix to accommodate a #9 rigid suction curette. The suction curette was inserted to the fundus, hooked to suction, and twisted in a clockwise fashion until the curette was removed. Products noted in the tubing system. This process was repeated until all uterine contents were removed. Following this careful attention was given to the bleeding from the cervical os and was noted to be minimal. The single-tooth tenaculum was removed and hemostasis was noted. The speculum was removed and this completed the procedure. The patient tolerated the procedure well and all instrument and sponge counts were correct x2. The patient was awakened from general anesthesia and taken to the recovery room in a stable condition. The patient will be sent home after meeting all discharge criteria and follow-up with me in 2 weeks. Condition: stable Disposition: PACU Specimens:: Products of conception Complications:: None
--- NOTE | 2022-12-11 09:59 | P.PNANES_ITS ---
[facility] Anesthesia Record Part II Anesthesia Record Part II Discharge Time: 08:45 Destination: Surgical Day Care (OP Surgery) PACU nurse assessment reviewed?: Yes Patient Condition:: Good Anesthesia Complications:: None Swallowing reflex intact?: Yes Airway Patency: Patent Cyanosis?: No Blood Pressure: 105/62 SaO2: 97 Respiratory Rate: 16 Pulse Rate: 67 Temperature: 98.7 F Mental Status: Alert & Oriented Pain level:: 0 Nausea and/or vomitting:: None Intake, IV Amount: 0 Hydration: Adequate
== END 2022-12-11 09:26 | disposition home or self-care (01) ==
PROVIDERS: PCP Physician Assistant; Visit Provider Obstetrics & Gynecology
PROC: (CPT 59812; principal; 2022-12-11 07:30)
DX: O03.4 Incomplete spontaneous abortion without complication (principal)
CPT/HCPCS: 59812; 96372; J2405; J2790

== ENCOUNTER 2022-12-28 19:11 | Emergency (ER) | payer OTHER, SELFPAY ==
[2022-12-28 19:15] VITALS: BP 138/87; PULSE 83; RESP 18; TEMP 36.7; O2SAT 98; BMI 30.5
--- NOTE | 2022-12-28 19:29 | EXP.UTC ---
Discharge Plan Disposition Patient Disposition: Home, Self-Care Condition: Good Prescriptions Prescriptions: New azithromycin [Zithromax] 250 mg tablet 250 mg PO UD DOSE PK Qty: 6 0RF Rx Instructions: Take two (2) tablets today, then one (1) tablet days #2 thru #5 benzonatate [benzonatate] 100 mg capsule 100 mg PO TIDP PRN (Reason: Cough) Qty: 30 0RF methylprednisolone 4 mg Tablets,Dose Pack 4 mg PO DIRECTED Qty: 21 0RF Referrals Follow up/Referrals: Malu Woo PA [Primary Care Provider] - See instructions Activity Restrictions/Add. Instructions Additional Instructions/Restrictions: Drink plenty of fluids. Take tylenol or ibuprofen for pain or fever. Take the medications as directed. Follow up with your regular doctor. GO TO THE ER FOR ANY WORSENING SYMPTOMS Don't start the oral steroids until tomorrow, since you had the shot here today. Clinical Impressions Clinical Impression: Pharyngitis, Bronchitis, Allergic contact dermatitis of scalp Instructions Patient Instructions: DI for Acute Bronchitis, DI for Contact Dermatitis Discharge ED Provider: Rafael Fry [facility] General Stated complaint: Sore Throat,Cough reaction to hair Time Seen by Provider: 12/28/22 19:29 History of Present Illness Provider Complaint: She states that for the past 4 days she has had worsening sinus congestion. She is also having a rash of her scalp after using hair dye. She has had allergic reactions to hair dye before. Related Data Previous Rx's Medication Instructions Recorded azithromycin 250 mg tablet 250 mg PO UD DOSE PK #6 tabs 12/28/22 (Zithromax) benzonatate 100 mg capsule 100 mg PO TIDP PRN Cough #30 caps 12/28/22 methylprednisolone 4 mg tablets in 4 mg PO DIRECTED #21 tabs 12/28/22 a dose pack Allergies Allergy/AdvReac Type Severity Reaction Status Date / Time Sulfa (Sulfonamide Allergy Mild rash Verified 12/28/22 19:39 Antibiotics) [facility] Disclaimer: The information contained in this section may have been updated after the patient was seen, as this information can be updated by other users. Medical History (Updated 12/28/22 @ 20:02 by Rafael Fry APRN) Anxiety Back Pain Foot pain History of gastroesophageal reflux (GERD) Urinary tract infection Surgical History (Updated 12/28/22 @ 19:40 by Bronwyn Garza RN) H/O dilation and curettage No significant past surgical history Family History Other Asthma Cancer Hypertension Social History Smoking Status: Current every day smoker tobacco type: cigarettes packs per day: 1 and e-cigarettes second hand exposure: Yes alcohol intake: never substance use type: denies use current occupational status: employed Travel in the last 8 weeks: None housing: house ROS Obtained: Yes All systems reviewed & no additional complaints except as documented Constitutional Constitutional: Denies body ache, Reports chills, Denies fever(s) and Reports poor appetite Eyes Eyes: Reports system reviewed and no additional complaints, except as documented ENT Ears, Nose, Mouth, and Throat: Reports as per HPI Cardiovascular Cardiovascular: Reports system reviewed and no additional complaints, except as documented and Denies chest pain Respiratory Respiratory: Denies shortness of breath, Denies chest congestion, Reports cough, Denies stridor and Denies wheezing Gastrointestinal Gastrointestingal: Reports system reviewed and no additional complaints, except as documented; Denies abdominal pain, diarrhea or vomiting Musculoskeletal Musculoskeletal: Reports system reviewed and no additional complaints, except as documented and Denies arthralgias Integumentary/Breasts Skin/Breast: Reports as per HPI and Reports rash Neurologic Neurologic: Denies paresthesias Allergic/Immunologic Allergic/Immu
[2022-12-28 19:45] LABS: UTC Strep Screen (Rapid) Negative (Negative)
[2022-12-28 20:13] VITALS: BP 138/87; PULSE 83; RESP 18; TEMP 36.7; O2SAT 98
== END 2022-12-28 20:13 | disposition home or self-care (01) ==
PROVIDERS: Emergency Provider Nurse Practitioner Family; PCP Physician Assistant
DX: J20.9 Acute bronchitis, unspecified (principal); J02.9 Acute pharyngitis, unspecified; L23.4 Allergic contact dermatitis due to dyes; F17.210 Nicotine dependence, cigarettes, uncomplicated; F41.9 Anxiety disorder, unspecified
CPT/HCPCS: 87880; 96372; 99212; 99214; G0463

== ENCOUNTER 2023-01-04 11:01 | Emergency (ER) | payer OTHER, SELFPAY ==
[2023-01-04 11:55] VITALS: BP 145/76; PULSE 99; RESP 18; TEMP 36.8; O2SAT 98; BMI 35.0
--- NOTE | 2023-01-04 12:08 | EXP.UTC ---
Discharge Plan Disposition Patient Disposition: Home, Self-Care Condition: Good Prescriptions Prescriptions: No Action No Known Home Medications Referrals Follow up/Referrals: Malu Woo PA [Primary Care Provider] - See instructions Activity Restrictions/Add. Instructions Additional Instructions/Restrictions: *Monitor Temp, Over the counter Motrin or Tylenol as directed/as needed Tylenol every 4 hours and Motrin every 6 hours (as long as your family doctor has told you that you can take it) for fever or pain. and straight to ER if unable to lower temp less than 101.0 after medication given *Warm salt water gargles may help to soothe the throat *Throat Lozenges? *Warm fluids like tea with honey may help to soothe the throat? *Sleep elevated *Humidifier/Vaporizer Your throat swab was sent for culture. Those results are typically sent to your primary care. Be sure to follow up in 2-3 days with your family doctor/primary care physician if no improvement so they can review those result and treat if necessary. If you don?t have a primary care doctor, I recommend you get one but in the mean time, you will have to return to a walk in clinic Follow up IMMEDIATELY for new or worsening symptoms or no Noticeable improvement over the next 48-72 hours. 911 for difficulty breathing or swallowing Clinical Impressions Clinical Impression: Viral syndrome Stand Alone Forms Stand Alone Forms: Work/School Release Instructions Patient Instructions: Sore Throat, DI for Nasal Congestion Discharge ED Provider: Malena Mcdonald [facility] General Stated complaint: runny nose, chest congestion, cough, body achces Mode of Arrival: Ambulatory Source of Information: Patient Limitations: No Limitations Time Seen by Provider: 01/04/23 12:08 Description of Symptoms (Recalled from Triage Doc. by RN): PATIENT C/O COUGH, SORE THROAT, RUNNY NOSE, CHEST CONGESTION, SNEEZING, BODY ACHES, AND SOA SINCE YESTERDAY HEENT Symptoms (Recalled from RN notes): Yes Resp Symptoms (Recalled from RN notes): Yes Skin Symptoms (Recalled from RN notes): No MS Symptoms (Recalled from RN notes): No Functional Status (Recalled from RN notes): WNL History of Present Illness Provider Complaint: Patient states that her daughter had flu last week, and now she started yesterday with sore throat, runny nose, chest congestion and feeling achy all over States that she was worried that she may have flu now too Related Data Home Medications Medication Instructions Recorded Confirmed No Known Home Medications 01/04/23 01/04/23 Allergies Allergy/AdvReac Type Severity Reaction Status Date / Time Sulfa (Sulfonamide Allergy Mild rash Verified 12/31/22 10:37 Antibiotics) Worker's Comp Is this a Worker's Comp case?: No [facility] Disclaimer: The information contained in this section may have been updated after the patient was seen, as this information can be updated by other users. Medical History Anxiety Back Pain Foot pain History of gastroesophageal reflux (GERD) Urinary tract infection Surgical History H/O dilation and curettage No significant past surgical history Family History Other Asthma Cancer Hypertension Social History Smoking Status: Current every day smoker tobacco type: cigarettes packs per day: 1 and e-cigarettes second hand exposure: Yes alcohol intake: never substance use type: denies use current occupational status: employed Travel in the last 8 weeks: None housing: house ROS Obtained: Yes All systems reviewed & no additional complaints except as documented Constitutional Constitutional: Reports system reviewed and no additional compla
[2023-01-04 12:13] LABS: UTC Strep Screen (Rapid) Negative (Negative)
[2023-01-04 12:14] LABS: UTC Influenza A Antigen Negative (Negative); UTC Influenza B Antigen Negative (Negative)
[2023-01-04 12:18] VITALS: BP 145/76; PULSE 99; RESP 18; TEMP 36.8; O2SAT 98
== END 2023-01-04 12:20 | disposition home or self-care (01) ==
PROVIDERS: Emergency Provider Nurse Practitioner; PCP Physician Assistant
DX: R09.81 Nasal congestion (principal); B34.9 Viral infection, unspecified; F17.210 Nicotine dependence, cigarettes, uncomplicated; F41.9 Anxiety disorder, unspecified
CPT/HCPCS: 87635; 87804; 87880; 99212; 99213; G0463

== ENCOUNTER 2023-01-08 10:21 | Emergency (ER) | payer OTHER, SELFPAY ==
[2023-01-08 10:35] VITALS: BP 137/71; PULSE 79; RESP 20; TEMP 36.8; O2SAT 99; BMI 36.6
[2023-01-08 10:47] LABS: Microscopic, Urine URINE MICROSCOPIC (MICROSCOPIC)
--- NOTE | 2023-01-08 10:48 | EXP.UTC ---
Discharge Plan Disposition Patient Disposition: Home, Self-Care Condition: Good Prescriptions Prescriptions: New cephalexin 500 mg capsule 500 mg PO BID 7 Days Qty: 14 0RF fluconazole [Diflucan] 150 mg tablet 150 mg PO Q3D Qty: 2 0RF Rx Instructions: Take one now and wait 72 hours and may repeat dose if still having symptoms phenazopyridine [Pyridium] 200 mg tablet 200 mg PO Q8H 2 Days Qty: 6 0RF Referrals Follow up/Referrals: Malu Woo PA [Primary Care Provider] - See instructions Activity Restrictions/Add. Instructions Additional Instructions/Restrictions: *Increase fluids. Water not Soda or Tea *Start antibiotic immediately and be sure to take as ordered for the FULL length of time although you should start to see improvement over the next 48 hours *Pyridium as needed Remember this medication will turn your urine . This is normal but it will stain what ever it gets on *You should not use Pyridium for more than 48 hours. If so , follow up with your primary physician to review urine culture and ensure that antibiotic is adequate for infection *Be SURE to follow up anytime for new or worsening symptoms with your family doctor. AND in 48 hours for urine culture results with your family doctor, if you do not have a doctor then you may call back to the [facility] for urine culture results and further treatment. We do recommend that you choose and establish care with a Primary Care Physician. ?AND follow up with them ?in 10-14 days to repeat UA to ensure infection is resolved and blood no longer present *Be sure to let your PCP know that we sent urine cultures from the [facility] so they can follow up to ensure that you area the on the correct antibiotic Call your doctor office and make appointment for 48 hours (2 days from today) ?to follow up and get the results of your urine culture and further treatment Clinical Impressions Clinical Impression: UTI (urinary tract infection) Qualifiers: Urinary tract infection type: site unspecified Hematuria presence: without hematuria Qualified Code(s): N39.0 - Urinary tract infection, site not specified Instructions Patient Instructions: DI for Urinary Tract Infection (UTI), Urinary Tract Infection Discharge ED Provider: Malena Mcdonald [facility] [place] Stated complaint: possible UTI Mode of Arrival: Ambulatory Source of Information: Patient Limitations: No Limitations Time Seen by Provider: 01/08/23 10:48 Description of Symptoms (Recalled from Triage Doc. by RN): PATIENT C/O BLOATING, NAUSEA, AND VAGINAL ITCHING/DISCHARGE X 2 DAYS. REPORTS HAVING A D&C ON 12/11 HEENT Symptoms (Recalled from RN notes): No Resp Symptoms (Recalled from RN notes): No Skin Symptoms (Recalled from RN notes): No MS Symptoms (Recalled from RN notes): No Functional Status (Recalled from RN notes): WNL History of Present Illness Provider Complaint: Patient states that she had a D&C on 12/11 States that she for the last couple of days she has been bloated on and off and started having some vaginal discharge with itching States that she did have a little burning with urination but not sure if she may have a UTI or yeast infection so she came in to get her urine checked States that she has appointment with OB first thing next week Related Data Previous Rx's Medication Instructions Recorded cephalexin 500 mg capsule 500 mg PO BID 7 days #14 caps 01/08/23 fluconazole 150 mg tablet 150 mg PO Q3D 2 doses #2 tabs 01/08/23 (Diflucan) phenazopyridine 200 mg tablet 200 mg PO Q8H pain 2 days #6 tabs 01/08/23 (Pyridium) Allergies Allergy/AdvReac Type Severity Reaction Status Date / Time Sulfa (Sulfonamide Allergy Mild rash Verified 12/31/22 10:37 Antibiotics) Worker's Comp Is this a Worker's Comp case?: No [facility] Disclaimer: The information contained in this section may have been updated after the patient was seen, as this information can be updated by other users. Med
[2023-01-08 11:24] LABS: Appearance,Urine SL CLOUDY (Clear); Bilirubin,Urine Negative (Negative); Blood, Urine TRACE-I (Negative); Color,Urine YELLOW (Yellow); Glucose,Urine (UA) Negative (Negative); Ketones,Urine Negative (Negative); Leukocyte Esterase,Urine 3+ (Negative); Nitrate,Urine Negative (Negative); PH,Urine 6.5 (5.0-8.5); Protein,Urine Negative (Negative); Specific Gravity, Urine 1.025 (1.005-1.030)
[2023-01-08 12:03] LABS: Bacteria,Urine 1+ /lpf
[2023-01-08 12:04] VITALS: BP 137/71; PULSE 79; RESP 20; TEMP 36.8; O2SAT 99
[2023-01-08 12:04] LABS: Trichomonas,Urine 1+ /lpf
== END 2023-01-08 12:11 | disposition home or self-care (01) ==
PROVIDERS: Emergency Provider Nurse Practitioner; PCP Physician Assistant
DX: N39.0 Urinary tract infection, site not specified (principal); B96.89 Other specified bacterial agents as the cause of diseases classified elsewhere; F17.210 Nicotine dependence, cigarettes, uncomplicated; F41.9 Anxiety disorder, unspecified
CPT/HCPCS: 81001; 87086; 99212; 99214; G0463

== ENCOUNTER 2023-02-14 11:20 | Emergency (ER) | payer OTHER, SELFPAY ==
[2023-02-14 11:30] VITALS: BP 147/78; PULSE 83; RESP 18; TEMP 36.8; O2SAT 98; BMI 32.0
--- NOTE | 2023-02-14 11:35 | EXP.UTC ---
Discharge Plan Disposition Patient Disposition: Home, Self-Care Condition: Good Prescriptions Prescriptions: New amoxicillin [amoxicillin] 875 mg tablet 875 mg PO Q12H Qty: 20 0RF oxlojfkstopbzcp-eimtdollg-JE [Bromfed DM] 2-30-10 mg/5 mL Syrup 5 ml PO Q6H PRN (Reason: Cough) Qty: 240 0RF prednisone [prednisone] 20 mg tablet 20 mg PO BID 4 Days Qty: 8 0RF Referrals Follow up/Referrals: Malu Woo PA [Primary Care Provider] - See instructions Activity Restrictions/Add. Instructions Additional Instructions/Restrictions: Drink plenty of fluids. Take tylenol or ibuprofen for pain or fever. Take the medications as directed. Follow up with your regular doctor. GO TO THE ER FOR ANY WORSENING SYMPTOMS Clinical Impressions Clinical Impression: Bronchitis, Pharyngitis Stand Alone Forms Stand Alone Forms: Work/School Release Instructions Patient Instructions: DI for Pharyngitis/Tonsillopharyngitis -- Adult, DI for Acute Bronchitis Discharge ED Provider: Rafael Fry [facility] General Stated complaint: sore throat,cough,congestion Time Seen by Provider: 02/14/23 11:34 History of Present Illness Provider Complaint: She states that for the past 4 days he has had a productive cough with greenish sputum. She has sinus congestion also. Related Data Previous Rx's Medication Instructions Recorded amoxicillin 875 mg tablet 875 mg PO Q12H #20 tabs 02/14/23 nfxollfueshrbrt-hhagtwauqfvklxr-GD 5 ml PO Q6H PRN Cough #240 mL 02/14/23 2 mg-30 mg-10 mg/5 mL oral syrup (Bromfed DM) prednisone 20 mg tablet 20 mg PO BID 4 days #8 tabs 02/14/23 Allergies Allergy/AdvReac Type Severity Reaction Status Date / Time Sulfa (Sulfonamide Allergy Mild rash Verified 02/14/23 11:48 Antibiotics) [facility] Disclaimer: The information contained in this section may have been updated after the patient was seen, as this information can be updated by other users. Medical History Anxiety Back Pain Foot pain History of gastroesophageal reflux (GERD) Urinary tract infection Surgical History H/O dilation and curettage No significant past surgical history Family History Other Asthma Cancer Hypertension Social History Smoking Status: Current every day smoker tobacco type: cigarettes packs per day: 1 and e-cigarettes second hand exposure: Yes alcohol intake: never substance use type: denies use current occupational status: employed Travel in the last 8 weeks: None housing: house ROS Obtained: Yes All systems reviewed & no additional complaints except as documented Constitutional Constitutional: Reports poor appetite Eyes Eyes: Reports system reviewed and no additional complaints, except as documented ENT Ears, Nose, Mouth, and Throat: Reports as per HPI Cardiovascular Cardiovascular: Reports system reviewed and no additional complaints, except as documented and Denies chest pain Respiratory Respiratory: Denies shortness of breath, Reports chest congestion, Reports cough, Denies stridor and Denies wheezing Gastrointestinal Gastrointestingal: Reports system reviewed and no additional complaints, except as documented; Denies abdominal pain, diarrhea or vomiting Musculoskeletal Musculoskeletal: Reports system reviewed and no additional complaints, except as documented and Denies arthralgias Integumentary/Breasts Skin/Breast: Reports system reviewed and no additional complaints, except as documented and Denies rash Neurologic Neurologic: Denies paresthesias Allergic/Immunologic Allergic/Immunologic: Denies wheezing Physical Exam General General appearance: alert and in no apparent distress Eye Eye exam: Present normal appearance, PERRL and EOMI ENT ENT exa
[2023-02-14 11:47] LABS: UTC Strep Screen (Rapid) Negative (Negative)
[2023-02-14 12:13] VITALS: BP 147/78; PULSE 83; RESP 18; TEMP 36.8; O2SAT 98
== END 2023-02-14 12:13 | disposition home or self-care (01) ==
PROVIDERS: Emergency Provider Nurse Practitioner Family; PCP Physician Assistant
DX: J20.9 Acute bronchitis, unspecified (principal); J02.9 Acute pharyngitis, unspecified; F17.210 Nicotine dependence, cigarettes, uncomplicated
CPT/HCPCS: 87880; 99212; 99214; G0463

== ENCOUNTER 2023-03-21 11:11 | Emergency (ER) | payer OTHER, SELFPAY ==
[2023-03-21 11:13] VITALS: BP 147/100; PULSE 113; RESP 18; TEMP 36.9; O2SAT 98; BMI 32.0
--- NOTE | 2023-03-21 11:38 | ED_ITS ---
Discharge Plan Disposition Patient Disposition: Home, Self-Care Prescriptions Prescriptions: New ondansetron 4 mg tablet,disintegrating 4 mg PO Q6H PRN (Reason: nausea and vomiting) Qty: 12 0RF levofloxacin 750 mg tablet 750 mg PO DAILY 5 Days Qty: 5 0RF No Action amoxicillin [amoxicillin] 875 mg tablet 875 mg PO Q12H Qty: 20 0RF tsfrrqurtokuwqy-vvsiigmcl-BS [Bromfed DM] 2-30-10 mg/5 mL Syrup 5 ml PO Q6H PRN (Reason: Cough) Qty: 240 0RF prednisone [prednisone] 20 mg tablet 20 mg PO BID 4 Days Qty: 8 0RF Referrals Follow up/Referrals: Malu Woo PA [Primary Care Provider] - See instructions Activity Restrictions/Add. Instructions Additional Instructions/Restrictions: At this time it was felt you are safe to be discharged home. If new or worsening symptoms please do not hesitate to return the emergency department. If symptoms persist please follow-up with your family doctor as you are able. Please take your antibiotics as prescribed. Clinical Impressions Clinical Impression: UTI (urinary tract infection), Acute viral syndrome, Vomiting Instructions Patient Instructions: DI for Nosebleed Discharge ED Provider: Paco Walker General Adult HPI General Chief complaint: Epistaxis Stated complaint: stomach pain, has had nose bleed Time Seen by Provider: 03/21/23 11:14 Mode of Arrival: Ambulatory Source of Information: Patient Limitations: No Limitations Description of Symptoms (Recalled from ER Triage Doc. by RN): c/o nose bleeding after vomiting x2 [employer], pt states she has had congestion, runny, sneezing, and coughing, stomach cramping History of Present Illness HPI narrative: Patient is a 27-year-old female with no significant past medical history p resents emergency department for evaluation of multiple complaints. Over the last 48 to 72 hours patient has had congestion, intermittent cough, sneezing, mild bifrontal headache, stomach cramping, vomiting. During her episode of vomiting she had a episode of epistaxis from her left nare which spontaneously resolved prior to arrival. Abdominal cramping is periumbilical and intermittent. She states this feels like when she had a urinary tract infection previously. Last menstrual period within the last 7 days. No dysuria. No chest pain. No other acute complaints at this time. Related Data Previous Rx's Medication Instructions Recorded amoxicillin 875 mg tablet 875 mg PO Q12H #20 tabs 02/14/23 ozzvdjzkauugmwb-quvsoeoczirtnhy-EE 5 ml PO Q6H PRN Cough #240 mL 02/14/23 2 mg-30 mg-10 mg/5 mL oral syrup (Bromfed DM) prednisone 20 mg tablet 20 mg PO BID 4 days #8 tabs 02/14/23 levofloxacin 750 mg tablet 750 mg PO DAILY UTI 5 days #5 tabs 03/21/23 ondansetron 4 mg disintegrating 4 mg PO Q6H PRN nausea and 03/21/23 tablet vomiting #12 tabs Allergies Allergy/AdvReac Type Severity Reaction Status Date / Time Sulfa (Sulfonamide Allergy Mild rash Verified 02/14/23 11:48 Antibiotics) [facility] Disclaimer: The information contained in this section may have been updated after the patient was seen, as this information can be updated by other users. Medical History Anxiety Back Pain Foot pain History of gastroesophageal reflux (GERD) Urinary tract infection Surgical History H/O dilation and curettage No significant past surgical history Family History Other Asthma Cancer Hypertension Social History Smoking Status: Unknown if ever smoked second hand exposure: Yes alcohol intake: never substance use type: denies use current occupational status: employed Travel in the last 8 weeks: None housing: house ROS Obtained: Yes Systems reviewed as appropriate & no additional complaints except as documented Physical Exam General General appearance: alert and in no apparent distress Head Head exam: atraumatic and normocephalic Eye Eye exam: Present PERRL and EOMI ENT ENT exam: Present mucous membranes moist Neck Neck exam: Present normal inspection Chest Chest inspection: Present normal inspection and symmetric chest wall rise Respiratory Respiratory exam: Present normal lung sounds bilaterally; Absent respiratory distress Cardiovascular Cardiovascular exam: Present normal rhythm and tachycardia Abdominal Exam Abdominal exam: Present soft; Absent tenderness, guarding or rebound Extremities Exam Extremities exam: Present normal inspection Neurological Exam Neurological exam: Present alert Psychiatric Psychiatric exam: Present normal affect Skin Skin exam: Present warm and dry Medical Decision Making Cesar Inquiry Pt receiving controlled substance: No Vital Signs: 03/21/23 11:13 Temperature 98.5 F Temperature Source Oral Pulse Rate [Left Radial] 113 H Respiratory Rate 18 Blood Pressure [Right Arm] 147/100 H Blood Pressure Mean [Right Arm] 115 Blood Pressure Source [Right Arm] Automatic Cuff Blood Pressure Position [Right Arm] Sitting 02 Sat by Pulse Oximetry 98 Oxygen Delivery Method Room Air Lab Data Lab Results 03/21/23 11:19: Urine Color Yellow, Urine Appearance Clear, Urine pH 6.0, Ur Specific [place] 1.025, Urine Protein Negative, Urine Glucose (UA) Negative, Urine Ketones Negative, Urine Blood Trace-i, Urine Nitrate Negative, Urine Bilirubin Negative, Urine Urobilinogen 0.2, Ur Leukocyte Esterase 2+ A, Urine RBC 3-5, Urine WBC 10-20, Ur Squamous Epith Cells 3-5, Urine Bacteria 1+ 03/21/23 11:45: WBC 9.4, RBC 4.94, Hgb 14.9, Hct 42.8, MCV 86.6, MCH 30.2, MCHC 34.9, RDW 13.1, Plt Count 235, MPV 9.5, Neut % (Auto) 65.7, Lymph % (Auto) 28.5, [place] % (Auto) 3.6, Eos % (Auto) 1.4, Baso % (Auto) 0.7, Neut # (Auto) 6.1, Lymph # (Auto) 2.7, [place] # (Auto) 0.3, Eos # (Auto) 0.1, Baso # (Auto) 0.1, Sodium 138, Potassium 4.0, Chloride 103, Carbon Dioxide 26, Anion Gap 13.0, BUN 14, Creatinine 0.90, Estimated Creat Clear 143, Estimated GFR 74, Est GFR ( Amer) 90, Glucose 102 H, Calcium 8.8, Total Bilirubin 0.5, AST 30, ALT 29, Alkaline Phosphatase 88, Total Protein 7.6, Albumin 4.6, Globulin 3.0, A lbumin/Globulin Ratio 1.5, Lipase 65, Serum HCG, Qual Negative, SARS-CoV-2 (PCR) Not detected, Influenza A Untype (PCR) Not detected, Influenza Type B (PCR) Not detected 03/21/23 11:45 03/21/23 11:45 Orders (Tests/Meds): ED MEDICATIONS Generic Name Dose Route Start Last Admin Trade Name Freq PRN Reason Stop Dose Admin Lactated Ringer's 1,000 mls @ 999 mls/hr 03/21/23 11:37 03/21/23 11:56 Lactated Ringer's 1000 Ml Bag IV 03/21/23 12:37 999 mls/hr .Q1H1M ONE Administration Ketorolac Tromethamine 15 mg 03/21/23 12:14 03/21/23 12:20 Ketorolac 30mg/Ml Vial IV 03/21/23 12:15 15 mg ONCE ONE Administration Discontinued Medications Generic Name Dose Route Start Last Admin Trade Name Freq PRN Reason Stop Dose Admin Acetaminophen 1,000 mg 03/21/23 11:37 03/21/23 12:04 Acetaminophen 1,000mg/100ml Vial IV 03/21/23 11:38 1,000 mg ONCE ONE Administration Ondansetron HCl 4 mg 03/21/23 11:37 03/21/23 11:55 Ondansetron 4mg/2ml Vial IV 03/21/23 11:38 4 mg ONCE ONE Administration Phenylephrine HCl 0 ml 03/21/23 11:39 03/21/23 12:04 Phenylephrine 0.5% Nasal [place] 15ml NS 03/21/23 11:40 2 sprays ONCE ONE Administration ORDERS Category Date Time Status CBC w/Auto Diff [Complete Blood Count Auto Diff] Stat Lab 03/21/23 11:45 Completed CMP [Comprehensive Metabolic Panel] Stat Lab 03/21/23 11:45 Completed HCG Qualitative, Serum Stat Lab 03/21/23 11:45 Completed Lipase Stat Lab 03/21/23 11:45 Completed Rapid PCR Covid and Flu A/B Stat Lab 03/21/23 11:45 Completed UA [Urinalysis and Microscopic] Stat Lab 03/21/23 11:19 Completed Urine Culture Stat Micro 03/21/23 11:19 Received Medical Decision Narrative: In summary patient is a 27-year-old female past medical history described above presents emergency department for evaluation of multiple complaints. Patient is hemodynamically stable nontoxic-appearing upon arrival, tachycardic, afebrile. History and physical is consistent with viral syndrome. Epistaxis has spontaneously resolved prior to arrival and is likely a combination of her inflammation from viral illness combined with Valsalva. Differential also includes pancreatitis, urinary tract infection, among others. Workup will be conducted with hematologic labs, viral swab, urinalysis. Initial interventions include crystalloid bolus, IV Tylenol. Imaging was considered but patient has a nonfocal abdominal exam will be deferred at this time. Workup reviewed by me, hematologic labs are nonactionable. Patient is non. Urinalysis shows significant leukocyturia and bacteria, nitrite negative. Patient has no vaginal discharge to suggest STI. Given this patient be treated empirically for urinary tract infection given that she states she has had similar cramping symptoms with previous UTI. Viral swab negative however the remainder of her symptoms are consistent with viral infection that was not tested for. Upon repeat evaluation patient was tolerating p.o., resolution of tachycardia. Given this patient is appropriate for discharge at this time will be discharged with a course of antibiotics for urinary tract infection as well as Zofran for symptom control was given return precautions. Critical Care Critical Care Time Critical Care Time: No
[2023-03-21 11:43] LABS: Microscopic, Urine URINE MICROSCOPIC (MICROSCOPIC)
[2023-03-21 11:48] LABS: Appearance,Urine CLEAR (Clear); Bilirubin,Urine Negative (Negative); Blood, Urine TRACE-I (Negative); Color,Urine YELLOW (Yellow); Glucose,Urine (UA) Negative (Negative); Ketones,Urine Negative (Negative); Leukocyte Esterase,Urine 2+ (Negative); Nitrate,Urine Negative (Negative); Protein,Urine Negative (Negative); Specific Gravity, Urine 1.025 (1.005-1.030); Urobilinogen,Urine 0.2 EU/dl (0.2)
[2023-03-21] MEDS: ONDANSETRON 4MG/2ML VIAL 4 MG IV (11:55)
[2023-03-21] MEDS: LACTATED RINGERS 1000ML 1,000 ML 999 ML IV (11:56)
[2023-03-21 11:58] LABS: Bacteria,Urine 1+ /lpf
[2023-03-21 11:59] LABS: Coronavirus 19, PCR Not Detected (NotDetected); Influenza A, PCR Not Detected (NotDetected); Influenza B, PCR Not Detected (NotDetected)
[2023-03-21 12:03] LABS: Chloride 103 mmol/L (98-107); Sodium 138 mmol/L (136-145)
[2023-03-21] MEDS: PHENYLEPHRINE 0.5% NASAL SPRAY 15ML NS (12:04)
[2023-03-21] MEDS: ACETAMINOPHEN 1,000MG/100ML VIAL 1000 MG IV (12:04)
[2023-03-21 12:06] LABS: Alanine Aminotransferase 29 U/L (12-78); Albumin Level 4.6 g/dl (3.5-5.0); Albumin/Globulin Ratio 1.5 (1.1-1.8); Alkaline Phosphatase 88 U/L (38-126); Aspartate Amino Transferase 30 U/L (14-36); Bilirubin,Total 0.5 mg/dl (0.2-1.3); Blood Urea Nitrogen 14 mg/dl (7-17); Calcium 8.8 mg/dl (8.4-10.2); Carbon Dioxide 26 mmol/L (22.0-30.0); Creatinine Clearance Estimated 143 mL/min (50-200); Estimated Glomerular Filt Rate 74 ml/min (>60); GFR (African American) 90 ML/MIN (>60); Glucose 102 mg/dl (74-100); Lipase 65 U/L (23-300); Total Protein,Serum 7.6 g/dl (6.3-8.2)
[2023-03-21 12:12] LABS: HCG Qualitative, Serum Negative (Negative)
[2023-03-21 12:19] LABS: Basophils # 0.1 K/mm3 (0-0.2); Basophils % 0.7 % (0.1-2.0); Eosinophils # 0.1 K/mm3 (0.0-0.4); Eosinophils % 1.4 % (0.1-12.0); Hematocrit 42.8 % (37.0-47.0); Hemoglobin 14.9 g/dL (12.2-16.2); Lymphocytes # 2.7 K/mm3 (0.7-4.5); Lymphocytes % 28.5 % (10-50); Mean Corpuscular HGB Conc 34.9 g/dL (31.8-35.4); Mean Corpuscular Hemoglobin 30.2 pg (27.0-31.2); Mean Corpuscular Volume 86.6 fl (81-99); Mean Platelet Volume 9.5 fl (7.4-10.4); Monocytes # 0.3 K/mm3 (0.1-1.0); Monocytes % 3.6 % (1.7-9.3); Neutrophils # 6.1 K/mm3 (1.8-7.8); Neutrophils % 65.7 % (37.0-80.0); Platelet Count 235 K/mm3 (142-424); Red Blood Count 4.94 M/mm3 (4.20-5.40); Red Cell Distribution Width 13.1 % (11.5-17.5); White Blood Count 9.4 K/mm3 (4.8-10.8)
[2023-03-21] MEDS: KETOROLAC 30MG/ML VIAL 15 MG IV (12:20)
[2023-03-21 12:27] VITALS: PULSE 83
[2023-03-21 12:41] VITALS: BP 128/86; PULSE 83; RESP 20; TEMP 36.9; O2SAT 97
== END 2023-03-21 12:42 | disposition home or self-care (01) ==
PROVIDERS: Emergency Provider Emergency Medicine; PCP Physician Assistant
DX: N39.0 Urinary tract infection, site not specified (principal); B34.9 Viral infection, unspecified; R10.33 Periumbilical pain; R51.9 Headache, unspecified; R05.9 Cough, unspecified; R11.10 Vomiting, unspecified; R04.0 Epistaxis; B96.89 Other specified bacterial agents as the cause of diseases classified elsewhere; Z11.52 Encounter for screening for COVID-19
CPT/HCPCS: 80053; 81001; 83690; 84703; 85025; 87086; 87636; 96361; 96374; 96375; 99285; J0131; J2405

== ENCOUNTER 2023-04-05 16:32 | Emergency (ER) | payer OTHER, SELFPAY ==
[2023-04-05 16:33] VITALS: BP 144/81; PULSE 98; RESP 16; TEMP 36.7; O2SAT 96; BMI 32.0
[2023-04-05 16:42] LABS: Influenza A, PCR Not Detected (NotDetected); Influenza B, PCR Not Detected (NotDetected)
[2023-04-05 16:47] VITALS: BP 135/93; PULSE 90; O2SAT 98
--- NOTE | 2023-04-05 17:02 | HMH.EDGENADL ---
Discharge Plan Disposition Patient Disposition: Home, Self-Care Chief Complaint: Upper Respiratory Infection Prescriptions Prescriptions: New ondansetron 4 mg tablet,disintegrating 4 mg PO Q6H PRN (Reason: nausea and vomiting) Qty: 12 0RF aldkmsyrejczkry-keilnfsmy-PB [Bromfed DM] 2-30-10 mg/5 mL syrup 5 ml PO Q6H PRN (Reason: cold symptoms) Qty: 118 0RF No Action amoxicillin [amoxicillin] 875 mg tablet 875 mg PO Q12H Qty: 20 0RF ryuutgqavjvsssz-bprzsnqoc-RM [Bromfed DM] 2-30-10 mg/5 mL Syrup 5 ml PO Q6H PRN (Reason: Cough) Qty: 240 0RF prednisone [prednisone] 20 mg tablet 20 mg PO BID 4 Days Qty: 8 0RF ondansetron 4 mg tablet,disintegrating 4 mg PO Q6H PRN (Reason: nausea and vomiting) Qty: 12 0RF levofloxacin 750 mg tablet 750 mg PO DAILY 5 Days Qty: 5 0RF Referrals Follow up/Referrals: Malu Woo PA [Primary Care Provider] - See instructions Activity Restrictions/Add. Instructions Additional Instructions/Restrictions: At this time it was felt you are safe to be discharged home. If new or worsening symptoms please do not hesitate to return the emergency department. If symptoms persist please follow-up with your family doctor as you are able. Please take your medication as prescribed. Clinical Impressions Clinical Impression: COVID-19 Discharge ED Provider: Paco Walker General Adult HPI General Chief complaint: Upper Respiratory Infection Stated complaint: cough, Soa, arlet, sore throat, ONEAL Time Seen by Provider: 04/05/23 16:55 Mode of Arrival: Ambulatory Source of Information: Patient Limitations: No Limitations Description of Symptoms (Recalled from ER Triage Doc. by RN): Patient reports covid exposure, nausea, headache, cough and chest congestion. History of Present Illness HPI narrative: Patient is a 27-year-old with no comorbidities who presents emergency department after COVID exposure. She has since developed nausea, headache, cough, congestion. The symptoms have been persistent over the last few days, her to present here for continued evaluation. No other acute complaints at this time. Patient denies chest pain, there is soreness when she coughs along her thoracic cage. Related Data Previous Rx's Medication Instructions Recorded amoxicillin 875 mg tablet 875 mg PO Q12H #20 tabs 02/14/23 rtrxfmjvzcsdvpx-tggpspqvflrzqhe-TF 5 ml PO Q6H PRN Cough #240 mL 02/14/23 2 mg-30 mg-10 mg/5 mL oral syrup (Bromfed DM) prednisone 20 mg tablet 20 mg PO BID 4 days #8 tabs 02/14/23 levofloxacin 750 mg tablet 750 mg PO DAILY UTI 5 days #5 tabs 03/21/23 ondansetron 4 mg disintegrating 4 mg PO Q6H PRN nausea and 03/21/23 tablet vomiting #12 tabs fwfoyvkofuxdefw-dcfbaxefcaioefh-JQ 5 ml PO Q6H PRN cold symptoms #118 04/05/23 2 mg-30 mg-10 mg/5 mL oral syrup mL (Bromfed DM) ondansetron 4 mg disintegrating 4 mg PO Q6H PRN nausea and 04/05/23 tablet vomiting #12 tabs Allergies Allergy/AdvReac Type Severity Reaction Status Date / Time Sulfa (Sulfonamide Allergy Mild rash Verified 02/14/23 11:48 Antibiotics) [facility] Disclaimer: The information contained in this section may have been updated after the patient was seen, as this information can be updated by other users. Medical History Anxiety Back Pain Foot pain History of gastroesophageal reflux (GERD) Urinary tract infection Surgical History H/O dilation and curettage No significant past surgical history Family History Other Asthma Cancer Hypertension Social History Smoking Status: Unknown if ever smoked second hand exposure: Yes alcohol intake: never substance use type: denies use current occupational status: employed Travel in the last 8 weeks: None jr
[2023-04-05 17:13] LABS: Coronavirus 19, PCR Detected (NotDetected)
[2023-04-05 17:23] VITALS: BP 135/93; PULSE 87; RESP 16; TEMP 36.7; O2SAT 99
== END 2023-04-05 17:24 | disposition home or self-care (01) ==
PROVIDERS: Emergency Provider Emergency Medicine; PCP Physician Assistant
DX: U07.1 COVID-19 (principal); R51.9 Headache, unspecified; R11.0 Nausea; R05.9 Cough, unspecified
CPT/HCPCS: 87636; 99283

== ENCOUNTER 2023-04-23 18:56 | Emergency (ER) | payer OTHER, SELFPAY ==
[2023-04-23 19:05] VITALS: BP 138/93; PULSE 103; RESP 21; TEMP 37.1; O2SAT 98; BMI 35.5
--- NOTE | 2023-04-23 19:08 | EXP.UTC ---
Discharge Plan Disposition Patient Disposition: Home, Self-Care Condition: Good Prescriptions Prescriptions: New mkaoxzoryeamkda-rxbcwliht-ZQ [Bromfed DM] 2-30-10 mg/5 mL Syrup 5 ml PO Q6H PRN (Reason: Cough) Qty: 240 0RF cefdinir 300 mg capsule 300 mg PO BID Qty: 20 0RF methylprednisolone 4 mg Tablets,Dose Pack 4 mg PO DIRECTED 6 Days Qty: 21 0RF Rx Instructions: Take 1 pack as directed for 6 days No Action amoxicillin [amoxicillin] 875 mg tablet 875 mg PO Q12H Qty: 20 0RF xamdkcavxbmnevu-udlvqnqby-KQ [Bromfed DM] 2-30-10 mg/5 mL Syrup 5 ml PO Q6H PRN (Reason: Cough) Qty: 240 0RF prednisone [prednisone] 20 mg tablet 20 mg PO BID 4 Days Qty: 8 0RF ondansetron 4 mg tablet,disintegrating 4 mg PO Q6H PRN (Reason: nausea and vomiting) Qty: 12 0RF levofloxacin 750 mg tablet 750 mg PO DAILY 5 Days Qty: 5 0RF ondansetron 4 mg tablet,disintegrating 4 mg PO Q6H PRN (Reason: nausea and vomiting) Qty: 12 0RF wdgykyxecuqvdlm-ebhkgxgew-CY [Bromfed DM] 2-30-10 mg/5 mL syrup 5 ml PO Q6H PRN (Reason: cold symptoms) Qty: 118 0RF Referrals Follow up/Referrals: Malu Woo PA [Primary Care Provider] - See instructions Activity Restrictions/Add. Instructions Additional Instructions/Restrictions: Drink plenty of fluids. Take tylenol or ibuprofen for pain or fever. Take the medications as directed. Follow up with your regular doctor. GO TO THE ER FOR ANY WORSENING SYMPTOMS We will culture the urine. That will tell what bacteria is causing your infection and which antibiotics will treat it best. Sometimes the first antibiotic we prescribe turns out to not work against different bacteria. So, make sure you follow up within 3 days if you are not getting better. Clinical Impressions Clinical Impression: Sinusitis, UTI (urinary tract infection) Stand Alone Forms Stand Alone Forms: Work/School Release Instructions Patient Instructions: Urinary Tract Infection, Urine Culture, DI for Sinusitis, DI for Urinary Tract Infection (UTI) Discharge ED Provider: Rafael Fry [facility] [place] General Stated complaint: runny nose, arlet Time Seen by Provider: 04/23/23 19:08 History of Present Illness Provider Complaint: She states that she has 2 different complaints today. She has had sore throat and sinus congestion for the past 3 days. She has also had low back pain and dysuria for the past 3 days also. Related Data Previous Rx's Medication Instructions Recorded amoxicillin 875 mg tablet 875 mg PO Q12H #20 tabs 02/14/23 stvjkasiiqgnbqg-hdfggfwyfqnzaxu-HH 5 ml PO Q6H PRN Cough #240 mL 02/14/23 2 mg-30 mg-10 mg/5 mL oral syrup (Bromfed DM) prednisone 20 mg tablet 20 mg PO BID 4 days #8 tabs 02/14/23 levofloxacin 750 mg tablet 750 mg PO DAILY UTI 5 days #5 tabs 03/21/23 ondansetron 4 mg disintegrating 4 mg PO Q6H PRN nausea and 03/21/23 tablet vomiting #12 tabs odbobznzpmxckuj-zyhavshaixbqngp-RR 5 ml PO Q6H PRN cold symptoms #118 04/05/23 2 mg-30 mg-10 mg/5 mL oral syrup mL (Bromfed DM) ondansetron 4 mg disintegrating 4 mg PO Q6H PRN nausea and 04/05/23 tablet vomiting #12 tabs htohzqovhszuqvi-iyaeqzgreuctvvf-TD 5 ml PO Q6H PRN Cough #240 mL 04/23/23 2 mg-30 mg-10 mg/5 mL oral syrup (Bromfed DM) cefdinir 300 mg capsule 300 mg PO BID #20 caps 04/23/23 methylprednisolone 4 mg tablets in 4 mg PO DIRECTED 6 days #21 tabs 04/23/23 a dose pack Allergies Allergy/AdvReac Type Severity Reaction Status Date / Time Sulfa (Sulfonamide Allergy Mild rash Verified 02/14/23 11:48 Antibiotics) [facility] Disclaimer: The information contained in this section may have been updated after the patient was seen, as this information can be updated by other users. Medical History Anxiety Back Pain Foot pain History of gastroesophageal reflux (GERD) Urinary tract infection Surgical History H/O dilation and curettage No significant past surgical history Family History Other Asthma Cancer Hypertension Social History Smoking Status: Unknown if ever smoked second hand exposure: Yes alcohol intake: never substance use type: denies use current occupational status: employed Travel in the last 8 weeks: None housing: house ROS Obtained: Yes All systems reviewed & no additional complaints except as documented Constitutional Constitutional: Reports poor appetite Eyes Eyes: Reports system reviewed and no additional complaints, except as documented ENT Ears, Nose, Mouth, and Throat: Reports as per HPI Cardiovascular Cardiovascular: Reports system reviewed and no additional complaints, except as documented and Denies chest pain Respiratory Respiratory: Denies shortness of breath, Reports chest congestion, Reports cough, Denies stridor and Denies wheezing Gastrointestinal Gastrointestingal: Reports system reviewed and no additional complaints, except as documented; Denies abdominal pain, diarrhea or vomiting Genitourinary Female Genitourinary: Reports as per HPI, Reports dysuria, Reports urinary frequency, Denies urinary incontinence, Denies urinary hesitancy and Reports urinary urgency Musculoskeletal Musculoskeletal: Reports back pain Integumentary/Breasts Skin/Breast: Reports system reviewed and no additional complaints, except as documented and Denies rash Neurologic Neurologic: Denies paresthesias Allergic/Immunologic Allergic/Immunologic: Denies wheezing Physical Exam General General appearance: alert and in no apparent distress Head Head exam: atraumatic, normocephalic and normal inspection Eye Eye exam: Present normal appearance, PERRL and EOMI ENT ENT exam: Present normal exam, normal oropharynx, mucous membranes moist, TM's normal bilaterally and normal external ear exam Neck Neck exam: Present normal inspection, full ROM and trachea midline; Absent meningismus or lymphadenopathy Chest Chest inspection: Present normal inspection and symmetric chest wall rise; Absent tenderness Respiratory Respiratory exam: Present normal lung sounds bilaterally; Absent respiratory distress Cardiovascular Cardiovascular exam: Present regular rate and normal rhythm; Absent JVD Abdominal Exam Abdominal exam: Present soft and normal bowel sounds; Absent distention, tenderness or guarding Extremities Exam Extremities exam: Present normal inspection, full ROM and normal capillary refill; Absent calf tenderness Back Exam Back exam: Present normal inspection; Absent tenderness Neurological Exam Neurological exam: Present alert and oriented X3 Psychiatric Psychiatric exam: Present normal affect and normal mood Skin Skin exam: Present warm, dry, intact and normal color Lymphatic Lymphatic Findings: no adenopathy Medical Decision Making Medical Records Medical records reviewed: No I reviewed the patient's medical records. Cesar Inquiry Pt receiving controlled substance: No Lab Data Lab results reviewed: Yes I reviewed the patient's lab results.
[2023-04-23 19:25] LABS: Apearance,Urine Clear (Clear); Bilirubin,Urine Negative (Negative); Blood, Urine Trace (Negative); Color,Urine Yellow (Yellow); Glucose,Urine (UA) Negative (Negative); Ketones,Urine Negative (Negative); PH,Urine 6.5 (5.0-8.5); Protein,Urine Negative (Negative); Specific Gravity, Urine 1.025 (1.005-1.030)
[2023-04-23 19:26] LABS: UTC Leukocyte Esterase,Urine 1+ (Negative); UTC Nitrate,Urine Negative (Negative); Urobilinogen,Urine 0.2 EU/dl (0.2)
[2023-04-23 19:27] VITALS: BP 138/93; PULSE 103; RESP 21; TEMP 37.1; O2SAT 98
[2023-04-23] MEDS: CEFDINIR 300MG CAPSULE 300 MG PO (19:32)
== END 2023-04-23 19:44 | disposition home or self-care (01) ==
PROVIDERS: Emergency Provider Nurse Practitioner Family; PCP Physician Assistant
DX: N39.0 Urinary tract infection, site not specified (principal); M54.59 Other low back pain; J01.90 Acute sinusitis, unspecified; R07.0 Pain in throat; R09.81 Nasal congestion
CPT/HCPCS: 81003; 87086; 99212; 99214; G0463

== ENCOUNTER 2023-05-01 18:33 | Emergency (ER) | payer OTHER, SELFPAY ==
[2023-05-01 18:40] VITALS: BP 144/69; PULSE 86; RESP 20; TEMP 36.7; O2SAT 96; BMI 36.8
--- NOTE | 2023-05-01 18:48 | ED_ITS ---
Discharge Plan Disposition Patient Disposition: Home, Self-Care Condition: Good Prescriptions Prescriptions: New methocarbamol 500 mg tablet 500 mg PO TID PRN (Reason: muscle spasm) Qty: 15 0RF ibuprofen 600 mg tablet 600 mg PO Q6HP PRN (Reason: Moderate Pain) Qty: 20 0RF No Action amoxicillin [amoxicillin] 875 mg tablet 875 mg PO Q12H Qty: 20 0RF nythorictkztpui-mnbluzdcm-NG [Bromfed DM] 2-30-10 mg/5 mL Syrup 5 ml PO Q6H PRN (Reason: Cough) Qty: 240 0RF prednisone [prednisone] 20 mg tablet 20 mg PO BID 4 Days Qty: 8 0RF blxdvflijfkdiay-hofnknpjy-OJ [Bromfed DM] 2-30-10 mg/5 mL Syrup 5 ml PO Q6H PRN (Reason: Cough) Qty: 240 0RF cefdinir 300 mg capsule 300 mg PO BID Qty: 20 0RF methylprednisolone 4 mg Tablets,Dose Pack 4 mg PO DIRECTED 6 Days Qty: 21 0RF Rx Instructions: Take 1 pack as directed for 6 days ondansetron 4 mg tablet,disintegrating 4 mg PO Q6H PRN (Reason: nausea and vomiting) Qty: 12 0RF levofloxacin 750 mg tablet 750 mg PO DAILY 5 Days Qty: 5 0RF ondansetron 4 mg tablet,disintegrating 4 mg PO Q6H PRN (Reason: nausea and vomiting) Qty: 12 0RF mvglvapkslkakvf-nsnhxnhno-DI [Bromfed DM] 2-30-10 mg/5 mL syrup 5 ml PO Q6H PRN (Reason: cold symptoms) Qty: 118 0RF Referrals Follow up/Referrals: Malu Woo PA [Primary Care Provider] - See instructions Activity Restrictions/Add. Instructions Additional Instructions/Restrictions: *Ibuprofen kelby 6 hours with meal as needed for pain/inflammation *Not additional anti-inflammatory like motrin, aleve, advil with the above amount of ibuprofen. You can still take Tylenol every 4 hours as needed if you need something else for pain *Ice 20 minutes every 2 hours for the first 48 hours after the initial injury followed by moist heat every 20 minutes 3-4 times a day to affected area *Muscle relaxer every 8 hours as needed for muscle spasms but remember, it WILL cause drowsiness You cannot take it and drive, operate machinery or care for small children. *Keep this area active, no movement leads to more stiffness, However take it easy and avoid heavy lifting pushing or pulling *Follow up with you family doctor if no improvement for further treatment Clinical Impressions Clinical Impression: Muscle spasm Stand Alone Forms Stand Alone Forms: Work/School Release Instructions Patient Instructions: DI for Muscle Spasm, Methocarbamol Discharge ED Provider: Malena Mcdonald [facility] General Stated complaint: Right shoulder pain Mode of Arrival: Ambulatory Source of Information: Patient Limitations: No Limitations Time Seen by Provider: 05/01/23 18:48 Description of Symptoms (Recalled from Triage Doc. by RN): PATIENT C/O RIGHT SHOULDER PAIN THAT STARTED YESTERDAY. NO KNOWN INJURY HEENT Symptoms (Recalled from RN notes): No Resp Symptoms (Recalled from RN notes): No Skin Symptoms (Recalled from RN notes): No MS Symptoms (Recalled from RN notes): Yes Functional Status (Recalled from RN notes): WNL History of Present Illness Provider Complaint: Patient states that yesterday she swept the snow off her porch, steps and sidewalk and played in the snow States that last night she started having spasm like pain in her right shoulder and shoulder blade area States area felt tight and hurt when she would move States that today it has continued to feel sore Denies known injury and worse wither certain movements Related Data Allergies Allergy/AdvReac Type Severity Reaction Status Date / Time Sulfa (Sulfonamide Allergy Mild rash Verified 02/14/23 11:48 Antibiotics) Worker's Comp Is this a Worker's Comp case?: No [facility] Disclaimer: The information contained in this section may have been updated after the patient was seen, as this information can be updated by other users. Medical History Anxiety Back Pain Foot pain History of gastroesophageal reflux (GERD) Urinary tract infection Surgical History H/O dilation and curettage No significant past surgical history Family History Other Asthma Cancer Hypertension Social History Smoking Status: Unknown if ever smoked second hand exposure: Yes alcohol intake: never substance use type: denies use current occupational status: employed Travel in the last 8 weeks: None housing: house ROS Obtained: Yes All systems reviewed & no additional complaints except as documented and Yes Systems reviewed as appropriate & no additional complaints except as documented Constitutional Constitutional: Reports system reviewed and no additional complaints, except as documented and Reports as per HPI ENT Ears, Nose, Mouth, and Throat: Reports system reviewed and no additional complaints, except as documented and Reports as per HPI Cardiovascular Cardiovascular: Reports system reviewed and no additional complaints, except as documented and Reports as per HPI Respiratory Respiratory: Reports system reviewed and no additional complaints, except as documented and Reports as per HPI Musculoskeletal Musculoskeletal: Reports system reviewed and no additional complaints, except as documented, Reports as per HPI and Reports other (muscle pain/spasms in right shoulder area worse with movement) Physical Exam General General appearance: alert and in no apparent distress Chest Chest inspection: Present normal inspection and symmetric chest wall rise Respiratory Respiratory exam: Present normal lung sounds bilaterally; Absent respiratory distress or wheezes Cardiovascular Cardiovascular exam: Present regular rate, normal rhythm and normal heart sounds Back Exam Back exam: Present tenderness and muscle spasm; Absent CVA tenderness (R), CVA tenderness (L), paraspinal tenderness or vertebral tenderness Back 1 view image: 1. reports achy like tightness/spasm since yesterday, denies radiation of pain and denies known injury pain worse at times with movement Neurological Exam Neurological exam: Present alert, oriented X3 and normal gait Medical Decision Making Cesar Inquiry Pt receiving controlled substance: No Cesar was queried for this patient: No Vital Signs: 05/01/23 18:40 Temperature 98.0 F Temperature Source Oral Pulse Rate [Left Brachial] 86 Respiratory Rate 20 Blood Pressure [Left Arm] 144/69 H Blood Pressure Mean [Left Arm] 94 Blood Pressure Source [Left Arm] Automatic Cuff Blood Pressure Position [Left Arm] Sitting 02 Sat by Pulse Oximetry 96 Oxygen Delivery Method Room Air Medical Decision Narrative: Discussed xrays and patient declined and denies known injury reports feels tight like muscle spasms
[2023-05-01 18:59] VITALS: BP 144/69; PULSE 86; RESP 20; TEMP 36.7; O2SAT 96
== END 2023-05-01 19:01 | disposition home or self-care (01) ==
PROVIDERS: Emergency Provider Nurse Practitioner; PCP Physician Assistant
DX: M25.511 Pain in right shoulder (principal); M62.838 Other muscle spasm
CPT/HCPCS: 99212; 99214; G0463

== ENCOUNTER 2023-05-17 11:11 | Emergency (ER) | payer OTHER, SELFPAY ==
[2023-05-17 11:40] VITALS: BP 143/91; PULSE 69; RESP 18; TEMP 36.8; O2SAT 96; BMI 32.5
--- NOTE | 2023-05-17 12:01 | ED_ITS ---
Discharge Plan Disposition Patient Disposition: Home, Self-Care Condition: Good Prescriptions Prescriptions: New amoxicillin [amoxicillin] 875 mg tablet 875 mg PO Q12H Qty: 20 0RF rpeqscnomanuisn-jiyeddgko-ZD [Bromfed DM] 2-30-10 mg/5 mL Syrup 5 ml PO Q6H PRN (Reason: Cough) Qty: 240 0RF Referrals Follow up/Referrals: Malu Woo PA [Primary Care Provider] - See instructions Activity Restrictions/Add. Instructions Additional Instructions/Restrictions: Drink plenty of fluids. Take tylenol or ibuprofen for pain or fever. Take the medications as directed. Follow up with your regular doctor. GO TO THE ER FOR ANY WORSENING SYMPTOMS Throw your tooth brush away and get a new one. Clinical Impressions Clinical Impression: Strep pharyngitis Stand Alone Forms Stand Alone Forms: Work/School Release Instructions Patient Instructions: Strep Throat, DI for Strep Throat Discharge ED Provider: Rafael Fry [facility] General Stated complaint: right and left ear pain, sore throat Mode of Arrival: Ambulatory Source of Information: Patient Limitations: No Limitations Time Seen by Provider: 05/17/23 11:46 Description of Symptoms (Recalled from Triage Doc. by RN): Sore throat, and bilateral ear pain. HEENT Symptoms (Recalled from RN notes): Yes Resp Symptoms (Recalled from RN notes): No Skin Symptoms (Recalled from RN notes): No MS Symptoms (Recalled from RN notes): No Functional Status (Recalled from RN notes): n/a Related Data Previous Rx's Medication Instructions Recorded amoxicillin 875 mg tablet 875 mg PO Q12H #20 tabs 05/17/23 xhuxkihtlqqgbfw-bpacefxhooxhmmd-ER 5 ml PO Q6H PRN Cough #240 mL 05/17/23 2 mg-30 mg-10 mg/5 mL oral syrup (Bromfed DM) Allergies Allergy/AdvReac Type Severity Reaction Status Date / Time Sulfa (Sulfonamide Allergy Mild rash Verified 05/17/23 11:57 Antibiotics) Worker's Comp Is this a Worker's Comp case?: No [facility] Disclaimer: The information contained in this section may have been updated after the patient was seen, as this information can be updated by other users. Medical History Anxiety Back Pain Foot pain History of gastroesophageal reflux (GERD) Urinary tract infection Surgical History H/O dilation and curettage No significant past surgical history Family History Other Asthma Cancer Hypertension Social History Smoking Status: Unknown if ever smoked second hand exposure: Yes alcohol intake: never substance use type: denies use current occupational status: employed Travel in the last 8 weeks: None housing: house ROS Obtained: Yes All systems reviewed & no additional complaints except as documented Constitutional Constitutional: Reports chills and Reports fever(s) Eyes Eyes: Denies eye discharge ENT Ears, Nose, Mouth, and Throat: Reports as per HPI Cardiovascular Cardiovascular: Denies chest pain Respiratory Respiratory: Denies chest congestion and Reports cough Gastrointestinal Gastrointestingal: Reports nausea; Denies abdominal pain, constipation, cramping, diarrhea or vomiting Musculoskeletal Musculoskeletal: Denies arthralgias Integumentary/Breasts Skin/Breast: Denies rash Neurologic Neurologic: Denies paresthesias Physical Exam General General appearance: alert and in no apparent distress Head Head exam: atraumatic, normocephalic and normal inspection Eye Eye exam: Present normal appearance, PERRL and EOMI ENT ENT exam: Present mucous membranes moist and normal external ear exam Expanded ENT Exam TM/Canal exam: Bilateral TM: erythema and bulging Nose exam: Absent sinus tenderness Mouth exam: Present normal external inspection; Absent drooling Teeth exam: Present normal inspection Throat exam: Present tonsillar erythema, tonsillomegaly and tonsillar exudate Neck Neck exam: Present normal inspection, full ROM and trachea midline; Absent tenderness, meningismus or lymphadenopathy Chest Chest inspection: Present normal inspection and symmetric chest wall rise; Absent tenderness Respiratory Respiratory exam: Present normal lung sounds bilaterally; Absent respiratory distress, wheezes or stridor Cardiovascular Cardiovascular exam: Present regular rate and normal rhythm; Absent systolic murmur or diastolic murmur Abdominal Exam Abdominal exam: Present soft and normal bowel sounds; Absent distention, tenderness, guarding, rebound or rigidity Extremities Exam Extremities exam: Present normal inspection and normal capillary refill; Absent calf tenderness Back Exam Back exam: Present normal inspection and full ROM; Absent tenderness, CVA tenderness (R) or CVA tenderness (L) Neurological Exam Neurological exam: Present alert, oriented X3 and CN II-XII intact Psychiatric Psychiatric exam: Present normal affect and normal mood Skin Skin exam: Present warm, dry, intact and normal color Medical Decision Making Medical Records Medical records reviewed: No I reviewed the patient's medical records. Cesar Inquiry Pt receiving controlled substance: No Vital Signs: 05/17/23 11:40 Temperature 98.2 F Temperature Source Oral Pulse Rate [Right Radial] 69 Respiratory Rate 18 Blood Pressure [Right Arm] 143/91 H Blood Pressure Mean [Right Arm] 108 Blood Pressure Source [Right Arm] Automatic Cuff Blood Pressure Position [Right Arm] Sitting 02 Sat by Pulse Oximetry 96 Oxygen Delivery Method Room Air Lab Data Lab results reviewed: Yes I reviewed the patient's lab results.
[2023-05-17 12:07] LABS: UTC Strep Screen (Rapid) Positive (Negative)
[2023-05-17 12:20] VITALS: BP 143/91; PULSE 61; RESP 19; TEMP 36.8
[2023-05-17 12:25] VITALS: BP 143/91; PULSE 68; RESP 18; TEMP 36.8; O2SAT 96
== END 2023-05-17 12:25 | disposition home or self-care (01) ==
PROVIDERS: Emergency Provider Nurse Practitioner Family; PCP Physician Assistant
DX: J02.0 Streptococcal pharyngitis (principal); R07.0 Pain in throat; H92.03 Otalgia, bilateral
CPT/HCPCS: 87880; 99212; 99214; G0463

== ENCOUNTER 2023-06-16 18:49 | Emergency (ER) | payer OTHER, SELFPAY ==
[2023-06-16 20:10] VITALS: BP 145/97; PULSE 102; RESP 21; TEMP 36.6; O2SAT 99; BMI 32.5
--- NOTE | 2023-06-16 20:32 | ED_ITS ---
Discharge Plan Disposition Patient Disposition: Home, Self-Care Condition: Good Prescriptions Prescriptions: No Action amoxicillin [amoxicillin] 875 mg tablet 875 mg PO Q12H Qty: 20 0RF [id number] [Bromfed DM] 2-30-10 mg/5 mL Syrup 5 ml PO Q6H PRN (Reason: Cough) Qty: 240 0RF Referrals Follow up/Referrals: Malu Woo PA [Primary Care Provider] - See instructions Activity Restrictions/Add. Instructions Additional Instructions/Restrictions: *Monitor Temp, Over the counter Motrin or Tylenol as directed/as needed Tylenol every 4 hours and Motrin every 6 hours (as long as your family doctor has told you that you can take it) for fever or pain. and straight to ER if unable to lower temp less than 101.0 after medication given *Warm salt water gargles may help to soothe the throat *Throat Lozenges? *Warm fluids like tea with honey may help to soothe the throat? *Sleep elevated *Humidifier/Vaporizer Follow up IMMEDIATELY for new or worsening symptoms or no Noticeable improvement over the next 48-72 hours. 911 for difficulty breathing or swallowing You were tested for today for Upper Respiratory Panel with COVID19 your test result should be back in the next 24hours, you may check your results on the [facility] Clinical Impressions Clinical Impression: Viral syndrome Stand Alone Forms Stand Alone Forms: Work/School Release Instructions Patient Instructions: DI for Viral Syndrome Discharge ED Provider: Malena Mcdonald [facility] [place] HPI General Stated complaint: sore throat, arlet Mode of Arrival: Ambulatory Source of Information: Patient Limitations: No Limitations Time Seen by Provider: 06/16/23 20:32 Description of Symptoms (Recalled from Triage Doc. by RN): PATIENT C/O RUNNY NOSE, CONGESTION, HEADACHE, COUGH, SORE THROAT, BODY AHCES, DIARRHEA AND NAUSEA. SHE REPORTS HER CHILD HAS FLU HEENT Symptoms (Recalled from RN notes): Yes Resp Symptoms (Recalled from RN notes): Yes Skin Symptoms (Recalled from RN notes): No MS Symptoms (Recalled from RN notes): No Functional Status (Recalled from RN notes): WNL History of Present Illness Provider Complaint: Patient states that her child tested positive for the flu on Wednesday and she thinks she may have it now States that she is having body aches, chills, headache, runny nose and nasal congestion, N/V/D and over all feeling like she may have the flu Related Data Previous Rx's Medication Instructions Recorded amoxicillin 875 mg tablet 875 mg PO Q12H #20 tabs 05/17/23 [id number] 5 ml PO Q6H PRN Cough #240 mL 05/17/23 2 mg-30 mg-10 mg/5 mL oral syrup (Bromfed DM) Allergies Allergy/AdvReac Type Severity Reaction Status Date / Time Sulfa (Sulfonamide Allergy Mild rash Verified 05/17/23 11:57 Antibiotics) Worker's Comp Is this a Worker's Comp case?: No [facility] Disclaimer: The information contained in this section may have been updated after the patient was seen, as this information can be updated by other users. Medical History Anxiety Back Pain Foot pain History of gastroesophageal reflux (GERD) Urinary tract infection Surgical History H/O dilation and curettage No significant past surgical history Family History Other Asthma Cancer Hypertension Social History Smoking Status: Unknown if ever smoked second hand exposure: Yes alcohol intake: never substance use type: denies use current occupational status: employed Travel in the last 8 weeks: None housing: house ROS Obtained: Yes All systems reviewed & no additional complaints except as documented and Yes Systems reviewed as appropriate & no additional complaints except as documented Constitutional Constitutional: Reports system reviewed and no additional complaints, except as documented, Reports as per HPI, Reports body ache, Reports chills, Reports fever(s) and Reports headache(s) ENT Ears, Nose, Mouth, and Throat: Reports system reviewed and no additional complaints, except as documented, Reports as per HPI, Reports headache(s), Reports nasal congestion, Reports nasal discharge and Reports sore throat Cardiovascular Cardiovascular: Reports system reviewed and no additional complaints, except as documented and Reports as per HPI Respiratory Respiratory: Reports system reviewed and no additional complaints, except as documented, Reports as per HPI and Reports cough Gastrointestinal Gastrointestingal: Reports system reviewed and no additional complaints, except as documented, as per HPI, diarrhea, nausea and vomiting Musculoskeletal Musculoskeletal: Reports system reviewed and no additional complaints, except as documented and Reports as per HPI Neurologic Neurologic: Reports headache(s) Physical Exam General General appearance: alert and in no apparent distress ENT ENT exam: Present mucous membranes moist Expanded ENT Exam Nose exam: Absent sinus tenderness Respiratory Respiratory exam: Present normal lung sounds bilaterally; Absent respiratory distress or wheezes Cardiovascular Cardiovascular exam: Present regular rate, normal rhythm and normal heart sounds Abdominal Exam Abdominal exam: Present soft and normal bowel sounds; Absent distention or tenderness Neurological Exam Neurological exam: Present alert, oriented X3 and normal gait Medical Decision Making Cesar Inquiry Pt receiving controlled substance: No Cesar was queried for this patient: No Vital Signs: 06/16/23 20:10 Temperature 97.8 F Temperature Source Oral Pulse Rate [Left Brachial] 102 H Respiratory Rate 21 Blood Pressure [Left Arm] 145/97 H Blood Pressure Mean [Left Arm] 113 Blood Pressure Source [Left Arm] Automatic Cuff Blood Pressure Position [Left Arm] Sitting 02 Sat by Pulse Oximetry 99 Oxygen Delivery Method Room Air Lab Data Lab results reviewed: Yes I reviewed the patient's lab results.
[2023-06-16 20:37] VITALS: BP 145/97; PULSE 102; RESP 21; TEMP 36.6; O2SAT 99
[2023-06-16 20:38] LABS: UTC Influenza A Antigen Negative (Negative); UTC Influenza B Antigen Negative (Negative)
[2023-06-16 20:43] LABS: Adenovirus,PCR Not Detected (NotDetected); Coronavirus 19, PCR Not Detected (NotDetected); Coronavirus 229E Not Detected (NotDetected); Coronavirus NL63 Not Detected (NotDetected); Coronavirus OC43 Not Detected (NotDetected); Coronovirus HKU1,PCR Not Detected (NotDetected); Human Metapneumovirus Not Detected (NotDetected); Influenza A, PCR Not Detected (NotDetected); Influenza AH1, PCR Not Detected (NotDetected); Influenza AH3,PCR Not Detected (NotDetected); Influenza B, PCR Not Detected (NotDetected); Parainfluenza 1, PCR Not Detected (NotDetected); Parainfluenza 2, PCR Not Detected (NotDetected); Parainfluenza 3, PCR Not Detected (NotDetected); Parainfluenza 4, PCR Not Detected (NotDetected); Respiratory Syncytial Virus Not Detected (NotDetected); Rhinovirus/Enterovirus Not Detected (NotDetected)
[2023-06-17 09:34] LABS: Influenza AH1, 2009 Detected (NotDetected)
== END 2023-06-16 20:46 | disposition home or self-care (01) ==
PROVIDERS: Emergency Provider Nurse Practitioner; PCP Physician Assistant
DX: J10.1 Influenza due to other identified influenza virus with other respiratory manifestations (principal); R51.9 Headache, unspecified; R11.2 Nausea with vomiting, unspecified; R05.9 Cough, unspecified; R50.9 Fever, unspecified; R09.81 Nasal congestion
CPT/HCPCS: 87581; 87632; 87635; 87798; 87804; 99212; 99213; G0463

== ENCOUNTER 2023-06-20 11:20 | Emergency (ER) | payer OTHER, SELFPAY ==
[2023-06-20 12:05] VITALS: BP 167/73; PULSE 83; RESP 18; TEMP 36.7; O2SAT 98; BMI 32.5
--- NOTE | 2023-06-20 12:05 | ED_ITS ---
Discharge Plan Disposition Patient Disposition: Home, Self-Care Condition: Good Prescriptions Prescriptions: New methylprednisolone 4 mg Tablets,Dose Pack 4 mg PO DIRECTED 6 Days Qty: 21 0RF Rx Instructions: Take 1 pack as directed for 6 days cefdinir 300 mg capsule 300 mg PO BID Qty: 20 0RF No Action amoxicillin [amoxicillin] 875 mg tablet 875 mg PO Q12H Qty: 20 0RF Referrals Follow up/Referrals: Malu Woo PA [Primary Care Provider] - See instructions Activity Restrictions/Add. Instructions Additional Instructions/Restrictions: Drink plenty of fluids. Take tylenol or ibuprofen for pain or fever. Take the medications as directed. Follow up with your regular doctor. GO TO THE ER FOR ANY WORSENING SYMPTOMS Don't take the amoxicillin that was prescribed on 06/15. Take the medications that were prescribed today. Clinical Impressions Clinical Impression: Acute viral syndrome, Pharyngitis Stand Alone Forms Stand Alone Forms: Work/School Release Instructions Patient Instructions: Sore Throat, DI for Pharyngitis/Tonsillopharyngitis -- Adult Discharge ED Provider: Rafael Fry [facility] General Stated complaint: sore throat, lt ear pain Time Seen by Provider: 06/20/23 12:05 Related Data Previous Rx's Medication Instructions Recorded amoxicillin 875 mg tablet 875 mg PO Q12H #20 tabs 05/17/23 cefdinir 300 mg capsule 300 mg PO BID #20 caps 06/20/23 methylprednisolone 4 mg tablets in 4 mg PO DIRECTED 6 days #21 tabs 06/20/23 a dose pack Allergies Allergy/AdvReac Type Severity Reaction Status Date / Time Sulfa (Sulfonamide Allergy Mild rash Verified 06/20/23 12:25 Antibiotics) [facility] Disclaimer: The information contained in this section may have been updated after the patient was seen, as this information can be updated by other users. Medical History Anxiety Back Pain Foot pain History of gastroesophageal reflux (GERD) Urinary tract infection Surgical History H/O dilation and curettage No significant past surgical history Family History Other Asthma Cancer Hypertension Social History Smoking Status: Unknown if ever smoked second hand exposure: Yes alcohol intake: never substance use type: denies use current occupational status: employed Travel in the last 8 weeks: None housing: house ROS Obtained: Yes All systems reviewed & no additional complaints except as documented Constitutional Constitutional: Reports chills and Reports fever(s) Eyes Eyes: Denies eye discharge ENT Ears, Nose, Mouth, and Throat: Reports as per HPI Cardiovascular Cardiovascular: Denies chest pain Respiratory Respiratory: Denies chest congestion and Reports cough Gastrointestinal Gastrointestingal: Reports nausea; Denies abdominal pain, constipation, cramping, diarrhea or vomiting Musculoskeletal Musculoskeletal: Denies arthralgias Integumentary/Breasts Skin/Breast: Denies rash Neurologic Neurologic: Denies paresthesias Physical Exam General General appearance: alert and in no apparent distress Head Head exam: atraumatic, normocephalic and normal inspection Eye Eye exam: Present normal appearance, PERRL and EOMI ENT ENT exam: Present mucous membranes moist and normal external ear exam Expanded ENT Exam TM/Canal exam: Bilateral TM: erythema and bulging Nose exam: Absent sinus tenderness Mouth exam: Present normal external inspection; Absent drooling Teeth exam: Present normal inspection Throat exam: Present tonsillar erythema, tonsillomegaly and tonsillar exudate Neck Neck exam: Present normal inspection, full ROM and trachea midline; Absent tenderness, meningismus or lymphadenopathy Chest Chest inspection: Present normal inspection and symmetric chest wall rise; Absent tenderness Respiratory Respiratory exam: Present normal lung sounds bilaterally; Absent respiratory distress, wheezes, stridor or accessory muscle use Cardiovascular Cardiovascular exam: Present regular rate and normal rhythm; Absent systolic murmur or diastolic murmur Abdominal Exam Abdominal exam: Present soft and normal bowel sounds; Absent distention, tenderness, guarding, rebound or rigidity Extremities Exam Extremities exam: Present normal inspection and normal capillary refill; Absent calf tenderness Back Exam Back exam: Present normal inspection and full ROM; Absent tenderness, CVA tenderness (R) or CVA tenderness (L) Neurological Exam Neurological exam: Present alert, oriented X3 and CN II-XII intact Psychiatric Psychiatric exam: Present normal affect and normal mood Skin Skin exam: Present warm, dry, intact and normal color Medical Decision Making Medical Records Medical records reviewed: No I reviewed the patient's medical records. Cesar Inquiry Pt receiving controlled substance: No Lab Data Lab results reviewed: Yes I reviewed the patient's lab results.
[2023-06-20 12:24] LABS: UTC Strep Screen (Rapid) Negative (Negative)
--- NOTE | 2023-06-20 12:32 | PC.NURSE ---
sent a rapid covid and flu up at 12:32
[2023-06-20 12:35] LABS: Coronavirus 19, PCR Not Detected (NotDetected); Influenza A, PCR Not Detected (NotDetected); Influenza B, PCR Not Detected (NotDetected)
[2023-06-20 12:38] VITALS: BP 167/73; PULSE 83; RESP 18; TEMP 36.7; O2SAT 98
--- NOTE | 2023-06-20 17:45 | PC.NURSE ---
Tried to call pt about result unable to leave message.
== END 2023-06-20 12:38 | disposition home or self-care (01) ==
PROVIDERS: Emergency Provider Nurse Practitioner Family; PCP Physician Assistant
DX: J02.9 Acute pharyngitis, unspecified (principal); B34.9 Viral infection, unspecified; H92.02 Otalgia, left ear; F41.9 Anxiety disorder, unspecified
CPT/HCPCS: 87636; 87880; 99212; 99214; G0463

== ENCOUNTER 2023-09-14 11:50 | Emergency (ER) | payer OTHER, SELFPAY ==
[2023-09-14 12:30] VITALS: BP 110/72; PULSE 88; RESP 18; TEMP 36.8; O2SAT 100; BMI 32.1
--- NOTE | 2023-09-14 13:21 | ED_ITS ---
Discharge Plan Disposition Patient Disposition: Home, Self-Care Condition: Good Prescriptions Prescriptions: New cetirizine 10 mg tablet 10 mg PO DAILY Qty: 30 0RF Referrals Follow up/Referrals: Malu Woo PA [Primary Care Provider] - See instructions Clinical Impressions Clinical Impression: URI (upper respiratory infection) Qualifiers: URI type: unspecified URI Qualified Code(s): J06.9 - Acute upper respiratory infection, unspecified Instructions Patient Instructions: DI for Viral Upper Respiratory Infection -- Adult Discharge ED Provider: Virginia Alejandra [facility] General Stated complaint: headache, sore throat, cough Mode of Arrival: Ambulatory Source of Information: Patient Limitations: No Limitations Time Seen by Provider: 09/14/23 13:06 Description of Symptoms (Recalled from Triage Doc. by RN): Pt's symptoms are cough, sore throat, body aches, ONEAL, fatigue, and sneezing. HEENT Symptoms (Recalled from RN notes): Yes Resp Symptoms (Recalled from RN notes): No Skin Symptoms (Recalled from RN notes): No MS Symptoms (Recalled from RN notes): No Functional Status (Recalled from RN notes): n/a History of Present Illness Provider Complaint: Pt relates that she has a cough (occasional), runny nose, sore throat, body aches, fatigue and headache. She denies taking anything for her symptoms. Related Data Previous Rx's Medication Instructions Recorded cetirizine 10 mg tablet 10 mg PO DAILY #30 tabs 09/14/23 Allergies Allergy/AdvReac Type Severity Reaction Status Date / Time Sulfa (Sulfonamide Allergy Mild rash Verified 09/14/23 12:50 Antibiotics) Worker's Comp Is this a Worker's Comp case?: No [facility] Disclaimer: The information contained in this section may have been updated after the patient was seen, as this information can be updated by other users. Medical History Anxiety Back Pain Foot pain History of gastroesophageal reflux (GERD) Urinary tract infection Surgical History H/O dilation and curettage No significant past surgical history Family History Other Asthma Cancer Hypertension Social History Smoking Status: Unknown if ever smoked second hand exposure: Yes alcohol intake: never substance use type: denies use current occupational status: employed Travel in the last 8 weeks: None housing: house ROS Obtained: Yes All systems reviewed & no additional complaints except as documented Constitutional Constitutional: Reports system reviewed and no additional complaints, except as documented, Reports body ache, Reports fatigue and Reports headache(s) Eyes Eyes: Reports system reviewed and no additional complaints, except as documented ENT Ears, Nose, Mouth, and Throat: Reports system reviewed and no additional complaints, except as documented, Reports headache(s), Reports nasal discharge, Reports post nasal drip and Reports sore throat Cardiovascular Cardiovascular: Reports system reviewed and no additional complaints, except as documented Respiratory Respiratory: Reports system reviewed and no additional complaints, except as documented and Reports non-productive cough Gastrointestinal Gastrointestingal: Reports system reviewed and no additional complaints, except as documented Genitourinary Female Genitourinary: Reports system reviewed and no additional complaints, except as documented Musculoskeletal Musculoskeletal: Reports system reviewed and no additional complaints, except as documented Integumentary/Breasts Skin/Breast: Reports system reviewed and no additional complaints, except as documented Neurologic Neurologic: Reports system reviewed and no additional complaints, except as documented and Reports headache(s) Endocrine Endocrine: Reports system reviewed and no additional complaints, except as documented and Reports fatigue Hematologic/Lymphatic Henatologic/Lymphatic: Reports system reviewed and no additional complaints, except as documented Allergic/Immunologic Allergic/Immunologic: Reports system reviewed and no additional complaints, except as documented Physical Exam General General appearance: alert and in no apparent distress Head Head exam: atraumatic and normocephalic Eye Eye exam: Present normal appearance Expanded ENT Exam External ear exam: Present normal external inspection Nose exam: Present sinus tenderness (frontal) Nasal speculum exam: Bilateral: other (clear drainage) Mouth exam: Present normal external inspection Teeth exam: Present normal inspection Comment: post nasal drainage Neck Neck exam: Present normal inspection and full ROM Chest Chest inspection: Present normal inspection and symmetric chest wall rise Respiratory Respiratory exam: Present normal lung sounds bilaterally Cardiovascular Cardiovascular exam: Present regular rate and normal rhythm Abdominal Exam Abdominal exam: Present soft Extremities Exam Extremities exam: Present normal inspection Back Exam Back exam: Present normal inspection Neurological Exam Neurological exam: Present alert and oriented X3 Psychiatric Psychiatric exam: Present normal affect and normal mood Skin Skin exam: Present warm, dry and intact Lymphatic Lymphatic Findings: no adenopathy Medical Decision Making Cesar Inquiry Pt receiving controlled substance: No Cesar was queried for this patient: No Vital Signs: 09/14/23 12:30 Temperature 98.3 F Temperature Source Oral Pulse Rate [Right Radial] 88 Respiratory Rate 18 Blood Pressure [Right Arm] 110/72 Blood Pressure Mean [Right Arm] 84 Blood Pressure Source [Right Arm] Automatic Cuff Blood Pressure Position [Right Arm] Sitting 02 Sat by Pulse Oximetry 100 Oxygen Delivery Method Room Air
[2023-09-14 13:30] VITALS: BP 110/72; PULSE 88; RESP 18; TEMP 36.8; O2SAT 100
== END 2023-09-14 13:30 | disposition home or self-care (01) ==
PROVIDERS: Emergency Provider Nurse Practitioner Family; PCP Physician Assistant
DX: R51.9 Headache, unspecified (principal); R05.9 Cough, unspecified; R07.0 Pain in throat; J06.9 Acute upper respiratory infection, unspecified; R53.83 Other fatigue
CPT/HCPCS: 99212; 99214; G0463

== ENCOUNTER 2024-01-23 12:47 | Emergency (ER) | payer OTHER, SELFPAY ==
[2024-01-23 13:35] VITALS: BP 136/86; PULSE 92; RESP 20; TEMP 36.9; O2SAT 98; BMI 29.0
--- NOTE | 2024-01-23 13:53 | EXP.UTC ---
Discharge Plan Disposition Patient Disposition: Home, Self-Care Condition: Good Prescriptions Prescriptions: New amoxicillin 500 mg capsule 500 mg PO TID 7 Days Qty: 21 0RF fluticasone propionate [Flonase Allergy Relief] 50 mcg/actuation spray,suspension 2 spray intranasal DAILY Qty: 16 0RF Rx Instructions: administer into each nostril daily methylprednisolone [Medrol ([place])] 4 mg tablets,dose pack See Rx Instructions .Route .COMPLEX 6 Days Qty: 21 0RF Rx Instructions: taper pack; ondansetron 4 mg tablet,disintegrating 4 mg PO Q8H PRN (Reason: nausea and vomiting) Qty: 12 0RF No Action cetirizine 10 mg tablet 10 mg PO DAILY Qty: 30 0RF Referrals Follow up/Referrals: Malu Woo PA [Primary Care Provider] - See instructions Activity Restrictions/Add. Instructions Additional Instructions/Restrictions: Take medication as prescribed Use flonase as directed Make sure to drink plenty of fluids Follow up with your Family Doctor if no improvement or any worsening of symptoms Return if needed Clinical Impressions Clinical Impression: Otitis media Instructions Patient Instructions: Fluticasone Nasal [place], Amoxicillin, Methylprednisolone Print Language Print Language: [place] Discharge ED Provider: Malena Mcdonald [facility] General Stated complaint: vomiting, weakness, freq urine Mode of Arrival: Ambulatory Source of Information: Patient Limitations: No Limitations Time Seen by Provider: 01/23/24 13:53 Description of Symptoms (Recalled from Triage Doc. by RN): PATIENT C/O FEELING LIGHT-HEADED, BLOATED, VOMITING, AND RIGHT EAR DRAINAGE SINCE WEDNESDAY HEENT Symptoms (Recalled from RN notes): Yes Resp Symptoms (Recalled from RN notes): No Skin Symptoms (Recalled from RN notes): No MS Symptoms (Recalled from RN notes): No Functional Status (Recalled from RN notes): WNL History of Present Illness Provider Complaint: Patient states that she has been having nausea since Wednesday and had some vomiting today States also she has been having some pain and pressure in her right ear thinks she may have an ear infection and fluid in her ear that at times is making her feel dizzy when she moves certain ways so today she came in to get something Related Data Previous Rx's ?Medication ?Instructions ?Recorded cetirizine 10 mg tablet 10 mg PO DAILY #30 tabs 09/14/23 amoxicillin 500 mg capsule 500 mg PO TID 7 days #21 caps 01/23/24 fluticasone propionate 50 2 spray intranasal DAILY #16 grams 01/23/24 mcg/actuation nasal spray,suspension (Flonase Allergy Relief) methylprednisolone 4 mg tablets in See Rx Instructions .Route 01/23/24 a dose pack (Medrol ([place])) .COMPLEX 6 days #21 tabs ondansetron 4 mg disintegrating 4 mg PO Q8H PRN nausea and 01/23/24 tablet vomiting #12 tabs Allergies Allergy/AdvReac Type Severity Reaction Status Date / Time Sulfa (Sulfonamide Allergy Mild rash Verified 09/14/23 12:50 Antibiotics) Worker's Comp Is this a Worker's Comp case?: No [facility] Disclaimer: The information contained in this section may have been updated after the patient was seen, as this information can be updated by other users. Medical History (Updated 01/23/24 @ 14:06 by Malena Mcdonald APRN) Visit for TB skin test Urinary tract infection History of gastroesophageal reflux (GERD) Anxiety Foot pain Back Pain Surgical History H/O dilation and curettage No significant past surgical history Family History Other Asthma Cancer Hypertension Social History Smoking Status: Unknown if ever smoked second hand exposure: Yes alcohol intake: never substance use type: denies use current occupational status: employed Travel in the last 8 weeks: None housing: house ROS Obtained: Yes All systems reviewed & no additional complaints except as documented and Yes Systems reviewed as appropriate & no additional complaints except as documented Constitutional Constitutional: Reports system reviewed and no additional complaints, except as documented and Reports as per HPI ENT Ears, Nose, Mouth, and Throat: Reports system reviewed and no additional complaints, except as documented, Reports as per HPI, Reports otalgia and Reports vertigo Cardiovascular Cardiovascular: Reports system reviewed and no additional complaints, except as documented and Reports as per HPI Respiratory Respiratory: Reports system reviewed and no additional complaints, except as documented and Reports as per HPI Gastrointestinal Gastrointestingal: Reports system reviewed and no additional complaints, except as documented, as per HPI, nausea and vomiting Genitourinary Female Genitourinary: Reports system reviewed and no additional complaints, except as documented and Reports as per HPI Musculoskeletal Musculoskeletal: Reports system reviewed and no additional complaints, except as documented and Reports as per HPI Neurologic Neurologic: Reports vertigo Physical Exam General General appearance: alert and in no apparent distress ENT ENT exam: Present mucous membranes moist Expanded ENT Exam TM/Canal exam: Right TM: erythema and bulging Nose exam: Present sinus tenderness Throat exam: Present normal inspection Respiratory Respiratory exam: Present normal lung sounds bilaterally; Absent respiratory distress or wheezes Cardiovascular Cardiovascular exam: Present regular rate, normal rhythm and normal heart sounds Abdominal Exam Abdominal exam: Present soft and normal bowel sounds; Absent distention or tenderness Neurological Exam Neurological exam: Present alert, oriented X3 and normal gait Medical Decision Making Medical Records Screening: Per USPSTF and CDC recommendations, given the prevalence of disease in our region, it is our hospital?s policy to screen for HIV and viral Hepatitis for all patients aged 18 and over and those with ongoing risk factors. Cesar Inquiry Pt receiving controlled substance: No Cesar was queried for this patient: No Vital Signs: 01/23/24 13:35 Temperature 98.4 F Temperature Source Oral Pulse Rate [Left Brachial] 92 H Respiratory Rate 20 Blood Pressure [Left Arm] 136/86 Blood Pressure Mean [Left Arm] 102 Blood Pressure Source [Left Arm] Automatic Cuff Blood Pressure Position [Left Arm] Sitting 02 Sat by Pulse Oximetry 98 Oxygen Delivery Method Room Air
[2024-01-23 14:07] VITALS: BP 136/86; PULSE 92; RESP 20; TEMP 36.9; O2SAT 98
== END 2024-01-23 14:12 | disposition home or self-care (01) ==
PROVIDERS: Emergency Provider Nurse Practitioner; PCP Physician Assistant
DX: H66.93 Otitis media, unspecified, bilateral (principal)
CPT/HCPCS: 99212; G0381

== ENCOUNTER 2024-02-24 14:27 | Outpatient (CLI) | payer OTHER, SELFPAY ==
[2024-02-24 15:56] LABS: HIV (1&2) Antibody Rapid NONREACTIVE (NONREACTIVE)
[2024-02-25 07:24] LABS: HCV Ab Non Reactive (Non Reactive); Hepatitis B Surface Antigen Negative (Negative)
[2024-02-25 10:32] LABS: Rapid Plasma Reagin Ab Titer Non Reactive titer (NonRea<1:1)
== END 2024-02-24 23:59 | disposition home or self-care (01) ==
LOC: LAB 14:28
PROVIDERS: PCP Physician Assistant; Visit Provider Obstetrics & Gynecology
DX: A64 Unspecified sexually transmitted disease (principal); R39.9 Unspecified symptoms and signs involving the genitourinary system
CPT/HCPCS: 36415; 86593; 86803; 87086; 87340; 87389

== ENCOUNTER 2024-02-25 12:30 | Outpatient (CLI) | payer OTHER, SELFPAY ==
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
== END 2024-02-25 23:59 | disposition home or self-care (01) ==
LOC: RAD 12:31
PROVIDERS: PCP Student in an Organized Health Care Education/Training Program; Visit Provider Student in an Organized Health Care Education/Training Program
DX: M25.562 Pain in left knee (principal); M54.50 Low back pain, unspecified; R07.81 Pleurodynia; M54.6 Pain in thoracic spine
CPT/HCPCS: 71101; 72072; 72100; 73562

== ENCOUNTER 2024-06-29 11:12 | Outpatient (CLI) | payer OTHER, SELFPAY ==
[2024-06-29 15:29] LABS: Coronavirus 19, PCR Not Detected (NotDetected); Influenza A, PCR Not Detected (NotDetected); Influenza B, PCR Not Detected (NotDetected); Respiratory Syncytial Virus Not Detected (NotDetected)
[2024-06-30 00:12] LABS: Human Rhinovirus Detected (NotDetected)
== END 2024-06-29 23:59 | disposition home or self-care (01) ==
LOC: LAB.DROPOF 06-30 10:59
PROVIDERS: PCP Nurse Practitioner; Visit Provider Nurse Practitioner
DX: B34.9 Viral infection, unspecified (principal)
CPT/HCPCS: 87631

== ENCOUNTER 2024-11-22 14:00 | Outpatient (RCR) | payer OTHER, SELFPAY | END 2024-11-22 23:59 | disposition home or self-care (01) | LOC: PT 14:00 | PROVIDERS: Visit Provider Orthopaedic Surgery Adult Reconstructive Orthopaedic Surgery | DX: S16.1XXA Strain of muscle, fascia and tendon at neck level, initial encounter (principal) | CPT/HCPCS: 97162; 97530 ==

== ENCOUNTER 2024-12-06 13:46 | Outpatient (CLI) | payer SELFPAY ==
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
[2024-12-06 13:55] LABS: COC Drug Screen Collection Only
== END 2024-12-06 23:59 | disposition home or self-care (01) ==
LOC: LAB 13:47
DX: R69 Illness, unspecified (principal)

== ENCOUNTER 2025-01-05 14:00 | Outpatient (RCR) | payer OTHER, SELFPAY | END 2025-01-05 23:59 | disposition home or self-care (01) | LOC: PT 14:00 | PROVIDERS: Visit Provider Orthopaedic Surgery Adult Reconstructive Orthopaedic Surgery | DX: S16.1XXA Strain of muscle, fascia and tendon at neck level, initial encounter (principal) | CPT/HCPCS: 97110; 97530 ==

== ENCOUNTER 2025-01-14 12:00 | Outpatient (CLI) | payer OTHER, SELFPAY ==
--- NOTE | 2025-01-14 12:01 | XR_ITS ---
PROCEDURE INFORMATION: Exam: XR Left Foot Exam date and time: 01/14/2025 12:23 PM Age: 29 years old Clinical indication: Pain; Foot; Left; Additional info: L ankle pain, rolled ankle TECHNIQUE: Imaging protocol: Radiologic exam of the left foot. Views: 1 or 2 views. COMPARISON: CR XR FOOT LT MIN 3V 06/09/2019 7:43 PM FINDINGS: Bones/joints: Normal. No fracture or dislocation. Soft tissues: Normal. IMPRESSION: 1. No acute findings. 2. The soft tissues are unremarkable.
--- NOTE | 2025-01-14 12:01 | XR_ITS ---
PROCEDURE INFORMATION: Exam: XR Left Ankle Exam date and time: 01/14/2025 12:22 PM Age: 29 years old Clinical indication: Pain; Ankle; Left; Additional info: Rolled ankle TECHNIQUE: Imaging protocol: Radiologic exam of the left ankle. Views: 1 or 2 views. COMPARISON: CR XR ANKLE LT MIN 3V 06/09/2019 7:41 PM FINDINGS: Bones/joints: Normal. No fracture. No subluxation or dislocation. Soft tissues: Unremarkable. IMPRESSION: No acute findings.
--- NOTE | 2025-01-14 12:01 | XR_ITS ---
PROCEDURE INFORMATION: Exam: XR Chest Exam date and time: 01/14/2025 12:18 PM Age: 29 years old Clinical indication: Cough TECHNIQUE: Imaging protocol: Radiologic exam of the chest. Views: 2 views. COMPARISON: CR XR RIBS RT MIN 3V W CXR1V 02/25/2024 12:[address] abdomen and pelvis dated 02/01/2022 FINDINGS: Lungs: Stable granuloma, lateral left lung base. No acute process. Pleural spaces: Unremarkable. No gross pleural effusion. No pneumothorax. Heart/Mediastinum: Unremarkable. No cardiomegaly. Bones/joints: Unremarkable. Stable exaggerated thoracic kyphosis. IMPRESSION: No acute cardiopulmonary process.
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
== END 2025-01-14 23:59 | disposition home or self-care (01) ==
LOC: RAD 12:01
PROVIDERS: PCP Nurse Practitioner Family; Visit Provider Student in an Organized Health Care Education/Training Program
DX: M25.572 Pain in left ankle and joints of left foot (principal); R05.9 Cough, unspecified
CPT/HCPCS: 71046; 73600; 73620

== ENCOUNTER 2025-01-14 22:30 | Outpatient (CLI) | payer OTHER, SELFPAY ==
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
[2025-01-15 11:47] LABS: Coronavirus 19, PCR Not Detected (NotDetected); Influenza A, PCR Not Detected (NotDetected); Influenza B, PCR Not Detected (NotDetected)
== END 2025-01-14 23:59 | disposition home or self-care (01) ==
LOC: LAB.DROPOF 22:31
PROVIDERS: PCP Student in an Organized Health Care Education/Training Program; Visit Provider Student in an Organized Health Care Education/Training Program
DX: B34.9 Viral infection, unspecified (principal)
CPT/HCPCS: 87631

== ENCOUNTER 2025-01-17 23:28 | Emergency (ER) | payer OTHER, SELFPAY ==
--- NOTE | 2025-01-17 23:30 | HMH.EDGENADL ---
Discharge Plan Disposition Patient Disposition: Home, Self-Care Condition: Good Prescriptions Prescriptions: No Action propranolol 20 mg tablet 20 mg PO TID PRN Patient Comments: TAKE 1 TABLET BY MOUTH 3 TIMES DAILY NEEDED FOR ANXIETY escitalopram oxalate 10 mg tablet 10 mg PO DAILY Patient Comments: TAKE 1 TABLET BY MOUTH EVERY DAY hydrochlorothiazide 12.5 mg tablet 12.5 mg PO DAILY Patient Comments: TAKE 1 TABLET BY MOUTH EVERY DAY kvctqlexocpwsfh-guijdzibg-KD [Bromfed DM] 2-30-10 mg/5 mL syrup 5 ml PO Q4-6H PRN (Reason: cold symptoms) Qty: 118 0RF Referrals Follow up/Referrals: Mattie Finney APRN [Primary Care Provider, Medical] - See instructions Activity Restrictions/Add. Instructions Additional Instructions/Restrictions: Please follow-up with your primary care provider. Please return to the emergency department if you develop any new or worsening symptoms or become concerned for your health. Clinical Impressions Clinical Impression: URI (upper respiratory infection) Qualifiers: URI type: unspecified URI Qualified Code(s): J06.9 - Acute upper respiratory infection, unspecified Stand Alone Forms Stand Alone Forms: Work/School Release Instructions Patient Instructions: Cough Print Language Print Language: French Discharge ED Provider: Prosper Ellis General Adult HPI General Chief complaint: Cough Stated complaint: soreness in chest, cough Time Seen by Provider: 01/17/25 23:30 History of Present Illness HPI narrative: 29-year-old female presents for mild productive cough and bilateral chest pain with cough. Her daughter has a rhinovirus infection. She was evaluated by the urgent care a few days ago. No pneumonia noted on chest x-ray at that time. She reports her symptoms have continued to worsen. She denies fever at home. Related Data Home Medications ?Medication ?Instructions ?Recorded ?Confirmed escitalopram oxalate 10 mg tablet 10 mg PO DAILY 01/14/25 01/14/25 hydrochlorothiazide 12.5 mg tablet 12.5 mg PO DAILY 01/14/25 01/14/25 propranolol 20 mg tablet 20 mg PO TID PRN 01/14/25 01/14/25 Previous Rx's ?Medication ?Instructions ?Recorded cfoglggpxugzwwx-qsmvvisbqpqnehh-QP 5 ml PO Q4-6H PRN cold symptoms 01/14/25 2 mg-30 mg-10 mg/5 mL oral syrup #118 mL (Bromfed DM) Allergies Allergy/AdvReac Type Severity Reaction Status Date / Time Sulfa (Sulfonamide Allergy Mild rash Verified 01/14/25 11:08 Antibiotics) [facility] Disclaimer: The information contained in this section may have been updated after the patient was seen, as this information can be updated by other users. Medical History (Updated 01/17/25 @ 23:49 by Prosper Ellis MD) Foot pain, left Ankle pain, left Viral syndrome SAB (spontaneous ) History of gastroesophageal reflux (GERD) Anxiety Foot pain Back Pain Surgical History H/O dilation and curettage Family History Other Asthma Cancer Hypertension Social History Smoking Status: Current every day smoker tobacco type: e-cigarettes second hand exposure: Yes alcohol intake: never substance use type: denies use current occupational status: employed Travel in the last 8 weeks?: None housing: house Have you lived/traveled outside US in past 30 days?: No Contact w/someone who lives/traveled outside US past 30 days?: No Exposure to someone with infectious disease in past 14 days?: No Do you have a fever (greater than 100.4 F or 38 C)?: No Have you tested positive for COVID-19?: No Exposed to someone with COVID-19 in past 14 days?: No Do you have a sore throat?: No Do you have a cough?: Yes Do you have any weakness?: No Do you have any diarrhea?: No Are you experiencing any unusual bleeding?: No Do you have any muscle aches/pain?: Yes Do you have any abdominal pain?: No Are you experiencing loss of taste or smell?: No Other Medical History Have you received the Flu Vaccine for this season: No Have you received the Pneumonia Vaccine: No ROS Obtained: Yes All systems reviewed & no additional complaints except as documented Physical Exam General General appearance: alert and in no apparent distress Head Head exam: atraumatic and normocephalic Eye Eye exam: Present normal appearance, PERRL and EOMI ENT ENT exam: Present normal oropharynx and normal external ear exam Neck Neck exam: Present normal inspection and full ROM Chest Chest inspection: Present normal inspection and symmetric chest wall rise; Absent tenderness Respiratory Respiratory exam: Present normal lung sounds bilaterally; Absent respiratory distress Cardiovascular Cardiovascular exam: Present regular rate and normal rhythm Abdominal Exam Abdominal exam: Present soft; Absent distention, tenderness or guarding Extremities Exam Extremities exam: Present normal inspection; Absent edema or joint swelling Back Exam Back exam: Present normal inspection; Absent tenderness Neurological Exam Neurological exam: Present alert and oriented X3; Absent motor sensory deficit Psychiatric Psychiatric exam: Present normal affect and normal mood Skin Skin exam: Present warm, dry and normal color Lymphatic Lymphatic Findings: no adenopathy Medical Decision Making Medical Records Medical records reviewed: Yes I reviewed the patient's medical records. Screening: Per USPSTF and CDC recommendations, given the prevalence of disease in our region, it is our hospital?s policy to screen for HIV and viral Hepatitis for all patients aged 18 and over and those with ongoing risk factors. Cesar Inquiry Pt receiving controlled substance: No Cesar was queried for this patient: No Vital Signs: 01/17/25 23:41 01/17/25 23:58 Temperature 98.2 F 98.2 F Temperature Source Oral Oral Pulse Rate 92 H Pulse Rate [Left] 92 H Respiratory Rate 16 16 Blood Pressure 145/103 H Blood Pressure [Right Arm] 145/103 H Blood Pressure Mean [Right Arm] 117 Blood Pressure Source Automatic Cuff Blood Pressure Source [Right Arm] Automatic Cuff Blood Pressure Position Sitting 02 Sat by Pulse Oximetry 99 Oxygen Delivery Method Room Air Room Air Lab Data Lab results reviewed: Yes I reviewed the patient's lab results. Orders (Tests/Meds): ORDERS Category Date Time Status CXR 2 view (NOT portable) [XR chest 2V] Stat Exams 01/17/25 23:40 Taken Medical Decision Narrative: 29-year-old female without significant past history presents for congestion, mild productive cough and shortness of breath. History was obtained via interactive discussion with patient. On arrival, patient is [afebrile, hemodynamically stable, satting appropriately, alert, oriented x4, GCS 15], moving all extremities spontaneously. Full physical exam performed and significant for no significant abnormal lung sounds. Differential includes but is not limited to viral/bacterial pneumonia, URI. Chest x-ray was obtained and independently interpreted by me, no evidence of bacterial pneumonia at this time. Patient was discharged in stable condition. Patient likely has the same rhinovirus infection that her child has. Procedures Risk/Benefits of Procedure(s) Were Explained: Yes Critical Care Critical Care Time Critical Care Time: No
--- NOTE | 2025-01-17 23:40 | XR_ITS ---
PROCEDURE INFORMATION: Exam: XR Chest Exam date and time: 01/17/2025 11:42 PM Age: 29 years old Clinical indication: Cough; Additional info: Productive cough TECHNIQUE: Imaging protocol: Radiologic exam of the chest. Views: 2 views. COMPARISON: CR XR CHEST 2V 01/14/2025 12:18 PM FINDINGS: Lungs: There is a nodular density in the left costophrenic angle which is stable when compared with CT dated 02/01/2022. The lungs are otherwise clear. No focal areas of consolidation. Pleural spaces: No pleural effusions. Negative for pneumothorax. Heart/Mediastinum: Cardiac silhouette and pulmonary vasculature are within range of normal. Bones/joints: There is no evidence of acute fracture. There is prominent accentuation of thoracic kyphosis. IMPRESSION: Stable nodule within the left lower lobe, more optimally described on CT of the abdomen and pelvis dated 02/01/2022 and chest radiograph dated 12/01/2020. No focal areas of consolidation.
[2025-01-17 23:41] VITALS: BP 145/103; PULSE 92; RESP 16; TEMP 36.8; O2SAT 99; BMI 33.0
--- NOTE | 2025-01-17 23:47 | PC.NURSE ---
Warm blanket provided to pt.
[2025-01-17 23:58] VITALS: BP 145/103; PULSE 92; RESP 16; TEMP 36.8; O2SAT 99
== END 2025-01-18 00:06 | disposition home or self-care (01) ==
PROVIDERS: Emergency Provider Emergency Medicine; PCP Nurse Practitioner Family
DX: J06.9 Acute upper respiratory infection, unspecified (principal); R05.1 Acute cough; B34.8 Other viral infections of unspecified site
CPT/HCPCS: 71046; 99282; 99283

== ENCOUNTER 2025-02-02 14:00 | Outpatient (RCR) | payer OTHER, SELFPAY | END 2025-02-02 23:59 | disposition home or self-care (01) | LOC: PT 14:00 | PROVIDERS: Visit Provider Orthopaedic Surgery Adult Reconstructive Orthopaedic Surgery | DX: S16.1XXA Strain of muscle, fascia and tendon at neck level, initial encounter (principal) | CPT/HCPCS: 97014; 97110; 97530; G0283 ==

== ENCOUNTER 2025-02-20 12:10 | Outpatient (CLI) | payer OTHER, SELFPAY ==
[2025-02-20 14:45] LABS: Coronavirus 19, PCR Not Detected (NotDetected); Influenza A, PCR Not Detected (NotDetected); Influenza B, PCR Not Detected (NotDetected)
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
== END 2025-02-20 23:59 | disposition home or self-care (01) ==
LOC: LAB.DROPOF 02-21 13:56
PROVIDERS: Visit Provider Student in an Organized Health Care Education/Training Program
DX: J32.9 Chronic sinusitis, unspecified (principal); J02.9 Acute pharyngitis, unspecified
CPT/HCPCS: 87631